=== PATIENT | male | born 1945 | race Caucasian/White ===

== ENCOUNTER → 2018-10-14 13:02 | Outpatient (CLI) | payer MEDICARE, OTHER, SELFPAY | PROVIDERS: Visit Provider Physician Assistant | DX: R30.0 Dysuria (principal) | CPT/HCPCS: 87086 ==

== ENCOUNTER → 2018-10-15 10:13 | Outpatient (CLI) | payer MEDICARE, OTHER, SELFPAY ==
[2018-10-15 10:55] LABS: Add Manual Diff / Slide Review NO; Basophils Absolute Auto 0 /uL (0-100); Basophils Percent Auto 0.3 % (0-2); Eosinophils Absolute Auto 100 /uL (0-450); Eosinophils Percent Auto 0.8 % (2-4); Hematocrit 45.2 % (41-53); Hemoglobin 15.4 g/dL (13.5-17.5); Lymphocytes Absolute Auto 1000 /uL (1100-4500); Lymphocytes Percent Auto 9.6 % (25-40); Mean Corpuscular HGB Conc 34.1 % (30-36); Monocytes Absolute Auto 1000 /uL (0-900); Monocytes Percent Auto 9.6 % (3-14); Neutrophils Absolute Auto 8600 /uL (1500-7000); Neutrophils Percent Auto 79.7 % (50-75); Platelet Count 228 X10^3/uL (150-400); Red Blood Cell Count 4.81 X10^6/uL (4.5-5.9); White Blood Cell Count 10.8 X10^3/uL (4.5-11.0)
[2018-10-15 11:05] LABS: Alanine Aminotransferase 54 IU/L (21-72); Albumin Globulin Ratio 1.3 (1.0-2.8); Alkaline Phosphatase 119 U/L (38-126); Aspartate Aminotransferase 45 IU/L (17-59); BUN Creatinine Ratio 13.5 (6-22); Blood Urea Nitrogen 27 mg/dL (9-20); Calcium 9.2 mg/dL (8.4-10.2); Carbon Dioxide 27 mmol/L (22-32); Chloride 100 mmol/L (98-107); Estimated Glomerular Filt Rate 32.9 mL/min (>60); Globulin 3.1 g/dL (1.7-4.1); Glucose 124 mg/dL (80-110); HEMOLYSIS < 15 (0-50); Potassium 4.3 mmol/L (3.4-5.1); Sodium 141 mmol/L (137-145); Total Protein 7.1 g/dL (6.3-8.2)
== END ==
PROVIDERS: PCP Internal Medicine; Visit Provider Physician Assistant
DX: R31.9 Hematuria, unspecified (principal)
CPT/HCPCS: 36415; 80053; 84153; 85025

== ENCOUNTER → 2018-12-04 12:25 | Outpatient (CLI) | payer MEDICARE, OTHER, SELFPAY ==
--- NOTE | 2018-12-04 | DI.RAD.S_ITS ---
PROCEDURE: XR CHEST 2V INDICATIONS: ACUTE BRONCHITIS TECHNIQUE: 2 views of the chest were acquired. COMPARISON: [facility], , CHEST 2 VIEW, 07/21/2009, 10:11. FINDINGS: Surgical changes and devices: None. Lungs and pleura: Lungs are clear. No pleural effusions or pneumothorax. Mediastinum: Mediastinal contours are normal. Heart size is normal. Bones and chest wall: No suspicious bony abnormalities. Soft tissues appear unremarkable. IMPRESSION: No acute cardiopulmonary disease. Dictated by: Irma Duke M.D. on 12/04/2018 at 17:32 Approved by: Irma Duke M.D. on 12/04/2018 at 17:33
== END ==
PROVIDERS: PCP Internal Medicine; Visit Provider Internal Medicine
DX: J20.9 Acute bronchitis, unspecified (principal)
CPT/HCPCS: 71046

== ENCOUNTER → 2020-02-18 19:24 | Outpatient (ROUT) | payer MEDICARE, OTHER, SELFPAY ==
[2020-02-18 20:19] LABS: Aspartate Aminotransferase 32 IU/L (17-59); Blood Urea Nitrogen 23 mg/dL (9-20); Calcium 9.4 mg/dL (8.4-10.2); Carbon Dioxide 29 mmol/L (22-32); Chloride 103 mmol/L (98-107); Cholesterol 139 mg/dL (140-199); Estimated Glomerular Filt Rate 58.5 mL/min (>60); Glucose 104 mg/dL (80-110); HDL Cholesterol 32 mg/dL (40-60); HEMOLYSIS < 15 (0-50); LDL Cholesterol Calculated 32 mg/dL (<100); Potassium 4.3 mmol/L (3.4-5.1); Sodium 142 mmol/L (137-145); Triglycerides 376 mg/dL (35-150); Uric Acid 8.4 mg/dL (3.5-8.5)
== END ==
PROVIDERS: PCP Internal Medicine; Visit Provider Internal Medicine
DX: I10 Essential (primary) hypertension (principal); E78.2 Mixed hyperlipidemia; M10.9 Gout, unspecified
CPT/HCPCS: 80048; 80061; 84450; 84550

== ENCOUNTER → 2022-04-12 10:33 | Outpatient (CLI) | payer MEDICARE, SELFPAY ==
--- NOTE | 2022-04-12 10:34 | DI.RAD.S_ITS ---
PROCEDURE: XR KUB INDICATIONS: Kidney stones TECHNIQUE: One view of the abdomen acquired. COMPARISON: [facility], XR HAND 3+ VIEWS RIGHT, 06/05/2017, 16:35. [facility] [place], CR, XR LUMBAR SPINE WITH OBLIQUES PLUS FLEXION EXTENSION, 03/22/2022, 15:31. FINDINGS: Surgical changes and devices: L4-L5 pedicle screw fixation with intervertebral body spacer. Right hip screw. Bowel: Paucity of small bowel gas limits evaluation of the small bowel. There is somewhat prominent stool in the right colon. Soft tissues: No suspicious abdominal calcifications. Visualized solid organ contours appear normal in size. Bones: No suspicious bony lesions. IMPRESSION: No kidney stones identified. Dictated by: Tim Strickland M.D. on 04/12/2022 at 15:44 Approved by: Tim Strickland M.D. on 04/12/2022 at 15:45
== END ==
PROVIDERS: PCP Internal Medicine; Referring Provider Urology; Visit Provider Urology
DX: N20.0 Calculus of kidney (principal); R97.20 Elevated prostate specific antigen [PSA]; N40.1 Benign prostatic hyperplasia with lower urinary tract symptoms; R35.1 Nocturia; R39.9 Unspecified symptoms and signs involving the genitourinary system; R39.15 Urgency of urination
CPT/HCPCS: 51798; 74018; 81002; 99214

== ENCOUNTER → 2022-04-20 11:04 | Outpatient (CLI) | payer MEDICARE, SELFPAY ==
--- NOTE | 2022-04-20 11:05 | DI.MRI.S_ITS ---
PROCEDURE: MR PELVIC PROSTATE PROTOCOL INDICATIONS: Elevated and rising PSA TECHNIQUE: Coronal HASTE, axial T1 FSE with fat saturation, 3-plane nonbreath-hold T2 FSE. After the administration of contrast, dynamic axial, delayed axial and coronal VIBE or 2-D FLASH with fat saturation through the pelvis. Optional diffusion weighted imaging and ADC may be performed. COMPARISON: None. FINDINGS: Image quality: The DWI images are suboptimal due to metallic artifact. Prostate: Gland size is 6.5 x 6.5 x 8.5 cm; ellipsoid gland volume is 187 mL. No PI-RADS 3 through 5 lesions. Hypertrophy of the transition zone. Genitourinary system: Diffuse bladder wall thickness, probably due to chronic outlet obstruction. Distal ureters are non distended. Bowel and peritoneum: No pathologic free pelvic fluid. Inferior colon and small bowel loops are normal in caliber. Nodes and vessels: No pelvic or inguinal adenopathy by size criteria. Iliac vessels are normal in caliber. Soft tissues: moderate left inguinal hernia containing fat. Bones: Marrow demonstrates normal overall signal, without lesions to suggest metastases. IMPRESSION: 1. Prostatomegaly with probable chronic outlet obstruction. No suspicious prostate lesions. 2. Moderate left inguinal hernia containing fat. Dictated by: Obie Rai M.D. on 04/20/2022 at 13:42 Approved by: Obie Rai M.D. on 04/20/2022 at 13:52
== END ==
PROVIDERS: PCP Internal Medicine; Referring Provider Urology; Visit Provider Urology
DX: N40.0 Benign prostatic hyperplasia without lower urinary tract symptoms (principal); K40.90 Unilateral inguinal hernia, without obstruction or gangrene, not specified as recurrent; R97.20 Elevated prostate specific antigen [PSA]
CPT/HCPCS: 72197; A9579

== ENCOUNTER → 2022-07-18 10:04 | Outpatient (CLI) | payer OTHER, SELFPAY ==
[2022-07-21 07:16] LABS: PSA Free % 40.5 % (.)
== END ==
PROVIDERS: PCP Internal Medicine; Referring Provider Urology; Visit Provider Urology
DX: R97.20 Elevated prostate specific antigen [PSA] (principal)
CPT/HCPCS: 36415; 84153; 84154

== ENCOUNTER → 2022-10-21 10:23 | Outpatient (CLI) | payer MEDICARE, SELFPAY ==
[2022-10-23 08:28] LABS: PSA Free % 38.6 % (.); PSA, Total 7.3 ng/mL (0.0-4.0)
== END ==
PROVIDERS: PCP Internal Medicine; Referring Provider Urology; Visit Provider Urology
DX: R97.20 Elevated prostate specific antigen [PSA] (principal)
CPT/HCPCS: 36415; 84153; 84154

== ENCOUNTER → 2023-01-30 09:35 | Outpatient (CLI) | payer MEDICARE, SELFPAY ==
[2023-02-01 10:43] LABS: PSA Free % 44.5 % (.); PSA, Total 6.4 ng/mL (0.0-4.0)
== END ==
PROVIDERS: PCP Internal Medicine; Referring Provider Urology; Visit Provider Urology
DX: R97.20 Elevated prostate specific antigen [PSA] (principal)
CPT/HCPCS: 36415; 84153; 84154

== ENCOUNTER 2023-02-21 13:34 | Emergency (ER) | payer MEDICARE, SELFPAY ==
[2023-02-21 13:37] VITALS: BP 180/80; PULSE 83; RESP 18; TEMP 36.6; O2SAT 97; BMI 27.4
--- NOTE | 2023-02-21 14:25 | ED_ITS ---
HPI - Extremity Problem <Jaydon Barrow PA-C - Last Filed: 02/21/23 15:58> General Chief complaint: Extremity Problem,Nontraumatic Stated complaint: bad L big toe Time Seen by Provider: 02/21/23 14:25 Source: patient Mode of arrival: Ambulatory History of Present Illness HPI Narrative: This is a 78-year-old male presents to the emergency department due to a left great toe ingrown toenail that has been affecting him for the last 2 months. He states that he and properly cut it about 2 months ago and cause it to grow in on itself. Denies any fevers, nausea, vomiting. Denies any redness spreading up the foot. States there has been some bloody drainage. Related Data Home Medications Medication Instructions Recorded Confirmed [MONTRELL] Q DAY ##1 12/17/06 02/10/23 rosuvastatin 20 mg tablet 20 mg PO DAILY 04/12/22 02/10/23 vitamins A,C,J-wkfd-tnfjes 4,296 1 cap PO BID 04/12/22 02/10/23 mcg-226 mg-90 mg capsule (PreserVision AREDS) naproxen sodium 220 mg capsule 220 - 440 mg PO BID PRN 04/28/22 02/10/23 allopurinol 100 mg tablet 100 mg PO BID 08/03/22 02/10/23 lisinopril 20 1 tab PO DAILY 08/03/22 02/10/23 mg-hydrochlorothiazide 12.5 mg tablet Previous Rx's Medication Instructions Recorded tadalafil 5 mg tablet (Cialis) 5 mg PO DAILY #30 tabs 08/03/22 cephalexin 500 mg capsule 500 mg PO QID #20 caps 02/21/23 Allergies Allergy/AdvReac Type Severity Reaction Status Date / Time oxycodone [From PERCOCET] Allergy Severe RASH Verified 11/04/22 10:41 Review of Systems <Jaydon Barrow PA-C - Last Filed: 02/21/23 15:58> Review of Systems Narrative: GENERAL: Denies chills, fatigue, malaise, fever, sweats. HEENT: Denies sinus pain, ear pain, sore throat, difficulty swallowing, dizziness. RESPIRATORY: Denies dyspnea, cough, wheezing, hemoptysis, sputum. CARDIOVASCULAR: Denies chest pain, palpitations, orthopnea, edema, GASTROINTESTINAL: Denies nausea, vomiting, abdominal pain, diarrhea, constipation, melena. : Denies dysuria, frequency, incontinence, hematuria, urinary retention. MUSCULOSKELETAL: denies weakness, joint pain, or bony pain SKIN: Left great toe ingrown toenail NEUROLOGIC: Denies weakness, headache, numbness, change in speech, confusion, seizures, incoordination. PSYCHIATRIC: No concerning psychosocial issues. 12 point review of systems is negative except for those stated above Patient History <Jaydon Barrow PA-C - Last Filed: 02/21/23 15:58> Medical History (Updated 02/21/23 @ 15:58 by Jaydon Barrow PA-C) Feeling of incomplete bladder emptying History of kidney stones Lower urinary tract symptoms Benign prostatic hyperplasia Rising PSA level Elevated PSA Male circumcision High blood pressure Gout Surgical History H/O vasectomy History of back surgery Social History marital status: number of children: 2 Smoking Status: Never smoker Type(s) of exercise: walking and weight lifting frequency: 3-4 times per week Smoking Status: Never smoker Substance Use Type: does not use Exam <Jaydon Barrow PA-C - Last Filed: 02/21/23 15:58> Narrative Exam Narrative: GENERAL: Well-developed patient, in mild distress. HEAD: Atraumatic. Normocephalic. EYES: Pupils equal round and reactive. Extraocular motions intact. No scleral icterus. No injection or drainage. ENT: Nose without bleeding, purulent drainage. Throat without erythema, tonsillar hypertrophy or exudate. Airway patent. NECK: Trachea midline. Non tender CARDIOVASCULAR: Regular rate and rhythm without murmurs, gallops, or rubs. RESPIRATORY: Clear to auscultation. Breath sounds equal bilaterally. No wheezes, rales, or rhonchi. GASTROINTESTINAL: Abdomen soft, non-tender, nondistended. EXTREMITIES: Ingrown toenail on the medial side of the left great toe. Some bloody drainage. No significant erythema or warmth to the touch. No evidence of any purulent drainage. BACK: Nontender without deformity or crepitance. No flank tenderness. NEURO: AOx3. SKIN: No rash or erythema of visible areas Initial Vital Signs Initial Vital Signs: Vital Signs Temperature 97.9 F 02/21/23 13:37 Pulse Rate 83 02/21/23 13:37 Respiratory Rate 18 02/21/23 13:37 Blood Pressure 180/80 H 02/21/23 13:37 Pulse Oximetry 97 02/21/23 13:37 Oxygen Delivery Method Room Air 02/21/23 13:37 <Leti Oliver DO - Last Filed: 02/22/23 07:51> Initial Vital Signs Initial Vital Signs: Vital Signs Temperature 97.9 F 02/21/23 13:37 Pulse Rate 83 02/21/23 13:37 Respiratory Rate 18 02/21/23 13:37 Blood Pressure 180/80 H 02/21/23 13:37 Pulse Oximetry 97 02/21/23 13:37 Oxygen Delivery Method Room Air 02/21/23 13:37 Course <Jaydon Barrow PA-C - Last Filed: 02/21/23 15:58> Orders Ordered: Discontinued Medications Diphtheria/Tetanus/Acell Pertussis (Tet,Diph,Pertuss(Acell),Vac/Pf 0.5 Ml Syringe) 0.5 ml IM .ONCE ONE Stop: 02/21/23 15:20 Last Admin: 02/21/23 15:56 Dose: 0.5 ml Documented By: DANIELLE Lidocaine HCl (Lidocaine 1% 20 Ml) 20 ml INJ INTRA-OP ONE Stop: 02/21/23 14:32 Vital Signs Vital signs: Vital Signs - 8 hr 02/21/23 13:37 Temperature 97.9 F Pulse Rate 83 Respiratory Rate 18 Blood Pressure 180/80 H Pulse Oximetry 97 Oxygen Delivery Method Room Air <Leti Oliver DO - Last Filed: 02/22/23 07:51> Orders Ordered: Discontinued Medications Diphtheria/Tetanus/Acell Pertussis (Tet,Diph,Pertuss(Acell),Vac/Pf 0.5 Ml Syringe) 0.5 ml IM .ONCE ONE Stop: 02/21/23 15:20 Last Admin: 02/21/23 15:56 Dose: 0.5 ml Documented By: DANIELLE Lidocaine HCl (Lidocaine 1% 20 Ml) 20 ml INJ INTRA-OP ONE Stop: 02/21/23 14:32 Vital Signs Vital signs: Vital Signs - 8 hr 02/21/23 13:37 Temperature 97.9 F Pulse Rate 83 Respiratory Rate 18 Blood Pressure 180/80 H Pulse Oximetry 97 Oxygen Delivery Method Room Air MDM - Extremity (Nontraumatic) <Jaydon Barrow PA-C - Last Filed: 02/21/23 15:58> MDM Narrative Medical decision making narrative: MDM * differential diagnosis includes but not limited to ingrowing toenail, abscess, osteomyelitis * Prior records reviewed: Patient has not been to this emergency department the past. * My lab interpretation: None obtained * My imgaing interpretation: None obtained * Clinical Decision Rules/Scores evaluated: None * Independent discussions with: None ED Course: This is a 78-year-old male presents emergency department due to left great toe ingrown toenail. Medial aspect of the left great toenail was removed without complications. Digital block performed with 1% lidocaine without epi. No complications. Will discharge with prophylactic antibiotics. Recommended patient is speak with the primary care provider for a podiatry referral for routine monitoring. Tetanus was updated. Shared Decision Making: Discussed plan with the patient was comfortable with the plan. Social Considerations: None Disposition: Discharged to home Discharge Plan Departure Patient Disposition: Home Clinical Impression: Ingrown toenail Activity Restrictions/Additional Instructions: Thank you for coming to the [facility] Emergency Department today. I am glad that we are able to remove the part of the toenail in question. Please take the oral antibiotics as prescribed to avoid any kind of infection. I do recommend you speak with the primary care provider for a referral to Podiatry so they can keep an eye on the healing and make sure that the ingrown toenail it does not happen again. I hope you feel better soon. Please follow up with your primary care provider within a week if your symptoms continue. If you do not have a primary care provider please contact the [facility] Resource line at [phone]. They will ask some questions about your medical history and help you get set up with a provider in the community. Prescriptions: New cephalexin 500 mg capsule 500 mg PO QID Qty: 20 0RF No Action [FISHOIL] Q DAY Qty: 1 rosuvastatin 20 mg tablet 20 mg PO DAILY PreserVision AREDS 4,296 mcg-226 mg-90 mg capsule 1 cap PO BID allopurinol 100 mg tablet 100 mg PO BID naproxen sodium 220 mg capsule 220 - 440 mg PO BID PRN lisinopril-hydrochlorothiazide 20-12.5 mg tablet 1 tab PO DAILY tadalafil [Cialis] 5 mg tablet 5 mg PO DAILY Qty: 30 12RF Referrals: Laura Corley MD [Primary Care Provider] - Stand Alone Forms: Patient Portal/API ED Sign-out <Leti Oliver DO - Last Filed: 02/22/23 07:51> Cosign ED Attending Sonnyature Attestation: I was available for consultation.
[2023-02-21] MEDS: TET,DIPH,PERTUSS(ACELL),VAC/PF 0.5 ML SYRINGE IM (15:56)
[2023-02-21 15:58] VITALS: BP 151/70; PULSE 57; RESP 12; TEMP 36.8; O2SAT 96
== END 2023-02-21 16:16 | disposition home or self-care (01) ==
PROVIDERS: Emergency Provider Physician Assistant Medical; PCP Internal Medicine
DX: L60.0 Ingrowing nail (principal); Z79.899 Other long term (current) drug therapy; Z23 Encounter for immunization
CPT/HCPCS: 90471; 99283; 90715

== ENCOUNTER → 2023-06-02 09:33 | Outpatient (CLI) | payer MEDICARE, SELFPAY ==
[2023-06-06 15:51] LABS: PSA Free % 38.9 % (.); PSA, Total 9.4 ng/mL (0.0-4.0)
== END ==
PROVIDERS: PCP Internal Medicine; Referring Provider Urology; Visit Provider Urology
DX: R97.20 Elevated prostate specific antigen [PSA] (principal)
CPT/HCPCS: 36415; 84153; 84154

== ENCOUNTER → 2023-07-26 10:00 | Outpatient (CLI) | payer MEDICARE, SELFPAY ==
[2023-07-26 10:23] LABS: Hematocrit 46.6 % (41-53); Hemoglobin 15.8 g/dL (13.5-17.5); Mean Corpuscular HGB Conc 33.9 % (30-36); Mean Corpuscular Hemoglobin 33.3 PG (26-34); Mean Corpuscular Volume 98.2 fL (80-100); Platelet Count 190 X10^3/uL (150-400); Red Blood Cell Count 4.75 X10^6/uL (4.5-5.9); Red Cell Distribution Width 15.1 % (11.6-14.8); White Blood Cell Count 6.4 X10^3/uL (4.5-11.0)
[2023-07-26 11:05] LABS: Alanine Aminotransferase 25 IU/L (<50); Albumin 4.6 g/dL (3.5-5.0); Albumin Globulin Ratio 1.8 (1.0-2.8); Alkaline Phosphatase 86 U/L (38-126); Aspartate Aminotransferase 29 IU/L (17-59); BUN Creatinine Ratio 21.4 (6-22); Bilirubin Total 0.8 mg/dL (0.2-1.3); Blood Urea Nitrogen 30 mg/dL (9-20); Calcium 9.3 mg/dL (8.4-10.2); Carbon Dioxide 29 mmol/L (22-32); Chloride 107 mmol/L (98-107); Cholesterol 101 mg/dL (140-199); Estimated Glomerular Filt Rate 51 mL/min (>60); Globulin 2.6 g/dL (1.7-4.1); Glucose 99 mg/dL (80-110); HDL Cholesterol 40 mg/dL (40-60); HEMOLYSIS < 15 (0-50); LDL Cholesterol Calculated 42 mg/dL (<100); Potassium 4.3 mmol/L (3.4-5.1); Sodium 142 mmol/L (137-145); Total Protein 7.2 g/dL (6.3-8.2); Triglycerides 94 mg/dL (35-150); Uric Acid 5.2 mg/dL (3.5-8.5)
[2023-07-26 11:29] LABS: TSH w/ Reflex to FT4 3.71 uIU/mL (0.47-4.68)
== END ==
PROVIDERS: PCP Internal Medicine; Referring Provider Internal Medicine; Visit Provider Internal Medicine
DX: E78.2 Mixed hyperlipidemia (principal); I10 Essential (primary) hypertension; M10.9 Gout, unspecified
CPT/HCPCS: 36415; 80053; 80061; 84443; 84550; 85027

== ENCOUNTER 2023-08-10 04:34 | Emergency (ER) | payer MEDICARE, SELFPAY ==
[2023-08-10 04:40] VITALS: PULSE 122; O2SAT 96
[2023-08-10 04:41] VITALS: BP 159/76; PULSE 119; O2SAT 95
[2023-08-10 04:47] VITALS: BP 159/76; PULSE 109; RESP 16; TEMP 36.7; O2SAT 95
--- NOTE | 2023-08-10 04:57 | ED.GENADULT ---
HPI - General Adult General Chief complaint: Urogenital-Male Stated complaint: can't pee Time Seen by Provider: 08/10/23 04:36 Source: patient and family Mode of arrival: Ambulatory History of Present Illness HPI narrative: Patient is a 78-year-old male who is here for evaluation of approximately 24 hours of urinary frequency and urgency and also burning. He also states he feels like he has not emptying his bladder. Also feels like he is constipated. Patient reports subjective fevers last night. Is not having any lower abdominal pain. Related Data Home Medications Medication Instructions Recorded Confirmed vitamins A,C,L-bhib-aofbkf 4,296 1 cap PO BID 04/12/22 07/25/23 mcg-226 mg-90 mg capsule (PreserVision AREDS) naproxen sodium 220 mg capsule 220 - 440 mg PO BID PRN 04/28/22 07/25/23 cholecalciferol (vitamin D3) 125 125 mcg PO DAILY 07/25/23 07/25/23 mcg (5,000 unit) capsule omega 0-ymw-abe-fish oil 1,000 mg 1 cap PO DAILY 07/25/23 07/25/23 (120 mg-180 mg) capsule (Fish Oil) sea-iodine 1 cap PO DAILY 07/25/23 Previous Rx's Medication Instructions Recorded allopurinol 100 mg tablet 200 mg (2 x 100 mg) PO DAILY #180 07/25/23 tabs lisinopril 20 1 tab PO DAILY #90 tabs 07/25/23 mg-hydrochlorothiazide 25 mg tablet rosuvastatin 20 mg tablet 20 mg PO DAILY #90 tabs 07/25/23 phenazopyridine 100 mg tablet 100 mg PO TID PRN pain 6 doses #6 08/10/23 (Pyridium) tabs sulfamethoxazole 800 1 tab PO BID 3 days #6 tabs 08/10/23 mg-trimethoprim 160 mg tablet (Bactrim DS) Allergies Allergy/AdvReac Type Severity Reaction Status Date / Time oxycodone [From PERCOCET] Allergy Severe RASH Verified 07/25/23 08:14 Review of Systems Constitutional Constitutional: Reports system reviewed and no additional complaints, except as documented Gastrointestinal Gastrointestinal: Reports system reviewed and no additional complaints, except as documented Genitourinary Genitourinary: Reports system reviewed and no additional complaints, except as documented Integumentary/Breasts Skin/Breast: Reports system reviewed and no additional complaints, except as documented Patient History Medical History Osteoarthritis (~1999) Allergies (~1948) Shoulder pain (~2017) Lumbar disc disease (~2015) Fractures (~1999) Foot pain (~2017) Chronic back pain (~2013) Carpal tunnel syndrome (~2017) Ankle pain (~2017) Mumps (~1953) Measles (~1953) Chicken pox (~1948) Tinnitus Hearing loss (~1969) Cataracts, bilateral (~2017) Slow transit constipation Advanced directives, counseling/discussion Mixed hyperlipidemia Essential hypertension Feeling of incomplete bladder emptying History of kidney stones Lower urinary tract symptoms Benign prostatic hyperplasia Rising PSA level Elevated PSA (~2022) Male circumcision Gout (~2014) Surgical History (Updated 08/07/23 @ 21:08 by Kacey Sousa) Anesthesia History of cataract removal with insertion of prosthetic lens (~2019) History of carpal tunnel release (~2021) History of shoulder surgery (~2020) H/O vasectomy History of back surgery (~2015) Family History (Updated 08/07/23 @ 21:09 by Kacey Sousa) Mother COPD (chronic obstructive pulmonary disease) Brother Cancer Social History marital status: number of children: 2 Smoking Status: Former smoker Type(s) of exercise: walking and weight lifting frequency: 3-4 times per week Smoking Status: Former smoker Substance Use Type: does not use Exam Initial Vital Signs Initial Vital Signs: Vital Signs Temperature 98.1 F 08/10/23 04:47 Pulse Rate 109 H 08/10/23 04:47 Respiratory Rate 16 08/10/23 04:47 Blood Pressure 159/76 H 08/10/23 04:47 Pulse Oximetry 95 08/10/23 04:47 Oxygen Delivery Method Room Air 08/10/23 04:47 Const General: cooperative, comfortable and No ill appearing HENMT Head: normal to inspection and normocephalic Resp Effort & Inspection: normal respiratory effort Cardio Rate: regular rate GI Inspection: normal to inspection and non-distended Palpation: soft, No firm and No tender Skin General: no rashes or lesions noted Neuro General: patient alert, patient awake, patient oriented x3 and moves all extremities Course Orders Ordered: ED Orders 08/10/23 05:10 Urine Culture Stat 08/10/23 05:15 Urinalysis and Microscopic Stat Discontinued Medications Lidocaine HCl (Lidocaine 2% (Glydo) 6 Ml Gel) 6 ml TOP NOW ONE Stop: 08/10/23 04:57 Last Admin: 08/10/23 05:18 Dose: 6 ml Documented By: DELIA Phenazopyridine HCl (Phenazopyridine 100 Mg Tablet) 100 mg PO NOW ONE Stop: 08/10/23 06:03 Trimethoprim/Sulfamethoxazole (Trimeth/Sulfa 160/800 (Ds) Tablet) 1 tab PO NOW ONE Stop: 08/10/23 06:03 Vital Signs Vital signs: Vital Signs - 8 hr 08/10/23 04:47 Temperature 98.1 F Pulse Rate 109 H Respiratory Rate 16 Blood Pressure 159/76 H Pulse Oximetry 95 Oxygen Delivery Method Room Air Medical Decision Making Lab Data Lab results reviewed: Yes I reviewed the patient's lab results. Labs: Lab Results 08/10/23 Range/Units 05:10 Urine Color Yellow Urine Appearance Clear Urine pH 5.5 (4.5-8.0) Ur Specific [place] <=1.005 (1.000-1.035) Urine Protein Trace H (Negative) Urine Glucose (UA) Negative (Negative) g/dL Urine Ketones Negative (NEGATIVE) Urine Occult Blood 2+ H (Negative) Urine Nitrate Positive H (Negative) Urine Bilirubin Negative (NEGATIVE) Urine Urobilinogen 1.0 (0.2) E.U./dL Ur Leukocyte Esterase 1+ H (NEGATIVE) Urine RBC 1-5/hpf (0-5/HPF) Urine WBC 10-30/hpf H (0-5/HPF) Ur Squamous Epith Cells 0-1 /hpf (0-5/HPF) Urine Bacteria Many (>30) H (None) Vol Urine Centrifuged 10ml (spun) MDM Narrative Medical decision making narrative: Patient's urinalysis today is consistent with a urinary tract infection secondary to positive nitrates, white blood cells, bacteria. The amount of urine that resulted after the Jiang catheter was placed is not consistent with acute urinary retention. I suspect that the symptoms that he is having with urinary urgency and frequency her related to the infection and bladder spasms. This is probably also related to his constipation issues as well. The Jiang catheter was placed here was removed. His 1st dose of antibiotics was given here in the emergency department. A prescription was sent to the pharmacy of his choice. Patient was given return precautions and follow-up instructions. He understands that there was a urine culture pending at the time of his discharge and we will contact if we need to change antibiotics based on this. Discharge Plan Departure Patient Disposition: Home Clinical Impression: Urinary tract infection Instructions: DI for Urinary Tract Infection (UTI) Activity Restrictions/Additional Instructions: Take the antibiotics as directed. Your 1st dose was given here in the emergency department so your next dose would not be until this afternoon. The Pyridium is a medication that can be helpful with the bladder spasms. This is an as-needed medication and I suspect that your symptoms will improve once the treatment for the infection starts. There was a urine culture pending at the time of discharge. We will contact you if we need to change antibiotics based on this. Contact your primary doctor for follow-up. Return to the emergency department for new symptoms. Prescriptions: New sulfamethoxazole-trimethoprim [Bactrim DS] 800-160 mg tablet 1 tab PO BID 3 Days Qty: 6 0RF phenazopyridine [Pyridium] 100 mg tablet 100 mg PO TID PRN (Reason: pain) Qty: 6 0RF No Action omega 8-cum-mnx-fish oil [Fish Oil] 1,000 mg (120 mg-180 mg) capsule 1 cap PO DAILY cholecalciferol (vitamin D3) 125 mcg (5,000 unit) capsule 125 mcg PO DAILY sea-iodine 1 cap PO DAILY lisinopril-hydrochlorothiazide 20-25 mg tablet 1 tab PO DAILY Qty: 90 3RF rosuvastatin 20 mg tablet 20 mg PO DAILY Qty: 90 3RF allopurinol 100 mg tablet 200 mg PO DAILY Qty: 180 3RF PreserVision AREDS 4,296 mcg-226 mg-90 mg capsule 1 cap PO BID naproxen sodium 220 mg capsule 220 - 440 mg PO BID PRN Referrals: Boy Sosa MD [Primary Care Provider] - Stand Alone Forms: Patient Portal/API
[2023-08-10 05:00] VITALS: BP 143/68; PULSE 104; O2SAT 94
[2023-08-10] MEDS: LIDOCAINE 2% (GLYDO) 6 ML GEL TOP (05:18)
[2023-08-10 05:20] LABS: Appearance Urine UA CLEAR; Bilirubin Urine UA NEGATIVE (NEGATIVE); Color Urine UA YELLOW; Glucose Urine UA NEGATIVE (Negative); Ketones Urine UA NEGATIVE (NEGATIVE); Leukocyte Esterase Urine UA 1+ (NEGATIVE); Nitrite Urine UA POSITIVE (Negative); Occult Blood Urine UA 2+ (Negative); Protein Urine UA TRACE (Negative); Specific Gravity Urine UA <=1.005 (1.000-1.035); pH Urine UA 5.5 (4.5-8.0)
[2023-08-10 05:30] VITALS: BP 144/73; PULSE 98; O2SAT 94
[2023-08-10 05:38] LABS: Urine Volume 10mL (spun)
[2023-08-10 05:39] LABS: Bacteria Urine Many (>30); RBC Urine 1-5/HPF (0-5/HPF); Squamous Epithelial Cell Urine 0-1 /HPF (0-5/HPF); WBC Urine 10-30/HPF (0-5/HPF)
[2023-08-10 06:00] VITALS: BP 167/79; PULSE 95; RESP 18; O2SAT 95
[2023-08-10] MEDS: TRIMETH/SULFA 160/800 (DS) TABLET 1 TAB PO (06:08)
[2023-08-10] MEDS: PHENAZOPYRIDINE 100 MG TABLET PO (06:11)
== END 2023-08-10 06:21 | disposition home or self-care (01) ==
PROVIDERS: Emergency Provider Emergency Medicine; PCP Internal Medicine
DX: N39.0 Urinary tract infection, site not specified (principal)
CPT/HCPCS: 51798; 81001; 87077; 87086; 87186; 99283; 99284

== ENCOUNTER 2023-08-14 04:08 | Inpatient (IN) | payer MEDICARE, SELFPAY ==
[2023-08-14 04:18] VITALS: BP 166/74; PULSE 102; RESP 18; TEMP 37; O2SAT 95; BMI 62.1
[2023-08-14] MEDS: cefTRIAXone 1,000 MG in SODIUM CHLORIDE 0.9% 100 ML 200 MG IV (04:32)
--- NOTE | 2023-08-14 04:39 | ED_ITS ---
HPI - Male Genitourinary <Leti DO Melody - Last Filed: 08/16/23 07:34> General Chief complaint: Urogenital-Male Stated complaint: uti Time Seen by Provider: 08/14/23 04:11 Source: patient and family Mode of arrival: Ambulatory History of Present Illness HPI Narrative: Patient is a 70-year-old male history of hypertension, gou, hyperlipidemia presenting today with increased bladder spasm and urinary frequency. He was seen evaluated here on August 09 and diagnosed with a UTI. He was appropriately placed on Bactrim and Pyridium. He reports that he continues to bladder spasm he is finished all in of his antibiotics. Also complaining of some mild constipation. He had a Jiang catheter placed here while he was in the ED and then it was found he had UTI. It was thought that his bladder spasm for secondary to infection. He currently has a bladder scan of 590 mL. Continues to have severe bladder spasms pain. He also reports some chills and sweats. No significant flank pain nausea or vomiting. Related Data Home Medications Medication Instructions Recorded Confirmed vitamins A,C,Z-ufnr-vdrhbs 4,296 1 cap PO BID 04/12/22 08/14/23 mcg-226 mg-90 mg capsule (PreserVision AREDS) cholecalciferol (vitamin D3) 125 125 mcg PO DAILY 07/25/23 08/14/23 mcg (5,000 unit) capsule omega 4-mjx-niz-fish oil 1,000 mg 1 cap PO DAILY 07/25/23 08/14/23 (120 mg-180 mg) capsule (Fish Oil) sea-iodine 1 cap PO DAILY 07/25/23 08/14/23 Previous Rx's Medication Instructions Recorded allopurinol 100 mg tablet 200 mg (2 x 100 mg) PO DAILY #180 07/25/23 tabs rosuvastatin 20 mg tablet 20 mg PO DAILY #90 tabs 07/25/23 amoxicillin 875 mg-potassium 1 tab PO BID 3 days #6 tabs 08/17/23 clavulanate 125 mg tablet tamsulosin 0.4 mg capsule 0.4 mg PO BEDTIME 90 days #90 caps 08/17/23 Allergies Allergy/AdvReac Type Severity Reaction Status Date / Time oxycodone [From PERCOCET] Allergy Severe RASH Verified 07/25/23 08:14 sulfamethoxazole AdvReac Intermediate Verified 08/14/23 08:46 [From Bactrim] trimethoprim [From Bactrim] AdvReac Intermediate Verified 08/14/23 08:46 Review of Systems <Francois Mcnulty MD - Last Filed: 08/18/23 11:32> Review of Systems Narrative: GENERAL: negative chills, fatigue, malaise, fever, sweats. HEENT: negative sinus pain, ear pain, sore throat RESPIRATORY: negative dyspnea, cough CARDIOVASCULAR: negative chest pain, palpitations GASTROINTESTINAL: negative nausea, vomiting, positive abdominal pain : Positive dysuria, frequency, hematuria MUSCULOSKELETAL: negative muscle or bony pain SKIN: negative rash, skin lesions NEUROLOGIC: negative weakness, numbness ROS Unobtainable: All systems reviewed & are unremarkable except as noted in HPI and below Patient History <Leti Oliver DO - Last Filed: 08/16/23 07:34> Medical History Osteoarthritis (~1999) Allergies (~1948) Shoulder pain (~2017) Lumbar disc disease (~2015) Fractures (~1999) Foot pain (~2017) Chronic back pain (~2013) Carpal tunnel syndrome (~2017) Ankle pain (~2017) Mumps (~1953) Measles (~1953) Chicken pox (~1948) Tinnitus Hearing loss (~1969) Cataracts, bilateral (~2017) Slow transit constipation Advanced directives, counseling/discussion Mixed hyperlipidemia Essential hypertension Feeling of incomplete bladder emptying History of kidney stones Lower urinary tract symptoms Benign prostatic hyperplasia Rising PSA level Elevated PSA (~2022) Male circumcision Gout (~2014) Surgical History (Updated 08/07/23 @ 21:08 by Kacey Sousa) Anesthesia History of cataract removal with insertion of prosthetic lens (~2019) History of carpal tunnel release (~2021) History of shoulder surgery (~2020) H/O vasectomy History of back surgery (~2015) Family History (Updated 08/07/23 @ 21:09 by Kacey Sousa) Mother COPD (chronic obstructive pulmonary disease) Brother Cancer Social History marital status: number of children: 2 household members: spouse Smoking Status: Former smoker alcohol intake: former Type(s) of exercise: walking and weight lifting frequency: 3-4 times per week Smoking Status: Former smoker Substance Use Type: does not use Exam <DO Heather Walters Last Filed: 08/16/23 07:34> Initial Vital Signs Initial Vital Signs: Vital Signs Temperature 98.6 F 08/14/23 04:18 Pulse Rate 102 H 08/14/23 04:18 Respiratory Rate 18 08/14/23 04:18 Blood Pressure 166/74 H 08/14/23 04:18 Pulse Oximetry 95 08/14/23 04:18 Oxygen Delivery Method Room Air 08/14/23 04:18 GENERAL: Alert 70-year-old male appears slightly uncomfortable and in no acute distress. HEENT: Head atraumatic,EOMI, pupils reactive, face symmetric, moist mucous membranes CARDIOVASCULAR: Regular rate and rhythm without murmurs, rubs or gallops. RESPIRATORY: Breath sounds equal bilaterally, no wheezes rales or rhonchi. ABDOMEN: Soft, nontender. Normoactive bowel sounds all 4 quadrants. No guarding or rebound. : No CVA tenderness EXTREMITIES: Normal range of motion, no clubbing or edema. Neurovascularly intact NEUROLOGICAL: Alert and oriented x4 SKIN: Warm, dry, no laceration, no petechiae, no rashes or lesions. <Francois Mcnulty MD - Last Filed: 08/18/23 11:32> Initial Vital Signs Initial Vital Signs: Vital Signs Temperature 98.6 F 08/14/23 04:18 Pulse Rate 102 H 08/14/23 04:18 Respiratory Rate 18 08/14/23 04:18 Blood Pressure 166/74 H 08/14/23 04:18 Pulse Oximetry 95 08/14/23 04:18 Oxygen Delivery Method Room Air 08/14/23 04:18 Course <Leti Oliver DO - Last Filed: 08/16/23 07:34> Orders Ordered: Discontinued Medications Acetaminophen (Acetaminophen 325 Mg Tablet) 650 mg PO Q6H PRN PRN Reason: Fever/Mild Pain (1-3) Last Admin: 08/14/23 21:06 Dose: 650 mg Documented By: OJCE Amlodipine Besylate (Amlodipine 5 Mg Tablet) 5 mg PO DAILY [facility] Last Admin: 08/14/23 10:14 Dose: Not Given Documented By: FREDA Atorvastatin Calcium (Atorvastatin 20 Mg Tablet) 40 mg PO BEDTIME [facility] Last Admin: 08/16/23 21:23 Dose: 40 mg Documented By: Admin: 08/15/23 21:13 Dose: 40 mg Documented By: Admin: 08/14/23 20:09 Dose: 40 mg Documented By: JOCE Heparin Sodium (Porcine) (Heparin 5,000 Unit/Ml Vial) 5,000 unit SUBCUT BID [facility] Last Admin: 08/17/23 08:21 Dose: 5,000 unit Documented By: Admin: 08/16/23 21:23 Dose: 5,000 unit Documented By: Admin: 08/16/23 08:43 Dose: 5,000 unit Documented By: Admin: 08/15/23 21:13 Dose: 5,000 unit Documented By: Admin: 08/14/23 10:12 Dose: 5,000 unit Documented By: FREDA Ceftriaxone Sodium 1,000 mg/ (Sodium Chloride) 100 mls @ 200 mls/hr IV NOW ONE Stop: 08/14/23 04:21 Last Infusion: 08/14/23 05:37 Dose: Infused Documented By: Admin: 08/14/23 04:32 Dose: 200 mls/hr Documented By: DALLIN Sodium Chloride (Normal Saline 0.9%) 1,000 mls @ 1,000 mls/hr IV BOLUS ONE Stop: 08/14/23 06:07 Last Infusion: 08/14/23 07:24 Dose: Infused Documented By: Admin: 08/14/23 05:37 Dose: 1,000 mls/hr Documented By: DALLIN Sodium Chloride (Normal Saline 0.9%) 1,000 mls @ 100 mls/hr IV CONT [facility] Stop: 08/14/23 21:14 Last Infusion: 08/14/23 21:30 Dose: Infused Documented By: Admin: 08/14/23 20:09 Dose: 100 mls/hr Documented By: Infusion: 08/14/23 20:09 Dose: Infused Documented By: Admin: 08/14/23 10:09 Dose: 100 mls/hr Documented By: FREDA Ceftriaxone Sodium 1,000 mg/ (Sodium Chloride) 100 mls @ 200 mls/hr IV Q24H [facility] Stop: 08/18/23 07:01 Last Admin: 08/17/23 06:24 Dose: 200 mls/hr Documented By: Infusion: 08/17/23 03:06 Dose: Infused Documented By: Admin: 08/16/23 06:29 Dose: 200 mls/hr Documented By: Infusion: 08/15/23 07:40 Dose: Infused Documented By: Admin: 08/15/23 06:33 Dose: 200 mls/hr Documented By: JOCE Sodium Chloride (Normal Saline 0.9%) 250 mls @ 21 mls/hr IV Q24H PRN PRN Reason: Flush Sodium Chloride (Normal Saline 0.9%) 1,000 mls @ 125 mls/hr IV CONT [facility] Stop: 08/15/23 22:59 Last Admin: 08/15/23 17:39 Dose: 125 mls/hr Documented By: Infusion: 08/15/23 17:39 Dose: Infused Documented By: Admin: 08/15/23 11:08 Dose: 125 mls/hr Documented By: LUNA Sodium Chloride (Normal Saline 0.9%) 1,000 mls @ 100 mls/hr IV CONT [facility]LE[facility] Stop: 08/16/23 22:44 Last Admin: 08/16/23 11:17 Dose: 100 mls/hr Documented By: ALEXEI Lidocaine HCl (Lidocaine 2% (Glydo) 6 Ml Gel) 6 ml TOP NOW ONE Stop: 08/14/23 04:44 Last Admin: 08/14/23 05:40 Dose: 6 ml Documented By: DALLIN Naloxone HCl (Naloxone 0.4 Mg/Ml Vial) 0.2 mg IV Q2MIN PRN PRN Reason: Opiate Reversal Ondansetron HCl (Ondansetron 4 Mg/2 Ml Inj) 4 mg IV Q4HR PRN PRN Reason: Nausea And Vomiting Oxybutynin (Oxybutynin 5 Mg Tablet) 5 mg PO BID [facility] Oxybutynin (Oxybutynin 5 Mg Tablet) 5 mg PO BID [facility] Last Admin: 08/17/23 08:21 Dose: 5 mg Documented By: Admin: 08/16/23 21:23 Dose: 5 mg Documented By: Admin: 08/16/23 08:43 Dose: 5 mg Documented By: Admin: 08/15/23 21:13 Dose: 5 mg Documented By: Admin: 08/15/23 10:04 Dose: 5 mg Documented By: Admin: 06/17/24 22:25 Dose: 5 mg Documented By: JOCE Sodium Chloride (Sodium Chloride 0.9% Flush) 10 ml IV PRN PRN PRN Reason: Flush Last Admin: 08/15/23 06:33 Dose: 10 ml Documented By: JOCE Sodium Chloride (Sodium Chloride 0.9% Flush) 10 ml IV BID [facility] Last Admin: 08/17/23 08:21 Dose: 10 ml Documented By: Admin: 08/16/23 21:23 Dose: 10 ml Documented By: Admin: 08/16/23 08:44 Dose: 10 ml Documented By: Admin: 08/15/23 21:13 Dose: 10 ml Documented By: Admin: 08/15/23 09:05 Dose: 10 ml Documented By: LUNA Tamsulosin HCl (Tamsulosin 0.4 Mg Capsule) 0.4 mg PO DAILY [facility] Last Admin: 08/17/23 08:21 Dose: 0.4 mg Documented By: Admin: 08/16/23 08:43 Dose: 0.4 mg Documented By: Admin: 08/15/23 10:05 Dose: 0.4 mg Documented By: Admin: 08/14/23 10:12 Dose: 0.4 mg Documented By: FREDA Vital Signs Vital signs: Vital Signs - 8 hr 08/14/23 04:18 Temperature 98.6 F Pulse Rate 102 H Respiratory Rate 18 Blood Pressure 166/74 H Pulse Oximetry 95 Oxygen Delivery Method Room Air <Francois Mcnulty MD - Last Filed: 08/18/23 11:32> Orders Ordered: Discontinued Medications Acetaminophen (Acetaminophen 325 Mg Tablet) 650 mg PO Q6H PRN PRN Reason: Fever/Mild Pain (1-3) Last Admin: 08/14/23 21:06 Dose: 650 mg Documented By: JOCE Amlodipine Besylate (Amlodipine 5 Mg Tablet) 5 mg PO DAILY [facility] Last Admin: 08/14/23 10:14 Dose: Not Given Documented By: FREDA Atorvastatin Calcium (Atorvastatin 20 Mg Tablet) 40 mg PO BEDTIME [facility] Last Admin: 08/16/23 21:23 Dose: 40 mg Documented By: Admin: 08/15/23 21:13 Dose: 40 mg Documented By: Admin: 08/14/23 20:09 Dose: 40 mg Documented By: JOCE Heparin Sodium (Porcine) (Heparin 5,000 Unit/Ml Vial) 5,000 unit SUBCUT BID [facility] Last Admin: 08/17/23 08:21 Dose: 5,000 unit Documented By: Admin: 08/16/23 21:23 Dose: 5,000 unit Documented By: Admin: 08/16/23 08:43 Dose: 5,000 unit Documented By: Admin: 08/15/23 21:13 Dose: 5,000 unit Documented By: Admin: 08/14/23 10:12 Dose: 5,000 unit Documented By: FREDA Ceftriaxone Sodium 1,000 mg/ (Sodium Chloride) 100 mls @ 200 mls/hr IV NOW ONE Stop: 08/14/23 04:21 Last Infusion: 08/14/23 05:37 Dose: Infused Documented By: Admin: 08/14/23 04:32 Dose: 200 mls/hr Documented By: DALLIN Sodium Chloride (Normal Saline 0.9%) 1,000 mls @ 1,000 mls/hr IV BOLUS ONE Stop: 08/14/23 06:07 Last Infusion: 08/14/23 07:24 Dose: Infused Documented By: Admin: 08/14/23 05:37 Dose: 1,000 mls/hr Documented By: DALLIN Sodium Chloride (Normal Saline 0.9%) 1,000 mls @ 100 mls/hr IV CONT [facility] Stop: 08/14/23 21:14 Last Infusion: 08/14/23 21:30 Dose: Infused Documented By: Admin: 08/14/23 20:09 Dose: 100 mls/hr Documented By: Infusion: 08/14/23 20:09 Dose: Infused Documented By: Admin: 08/14/23 10:09 Dose: 100 mls/hr Documented By: FREDA Ceftriaxone Sodium 1,000 mg/ (Sodium Chloride) 100 mls @ 200 mls/hr IV Q24H [facility] Stop: 08/18/23 07:01 Last Admin: 08/17/23 06:24 Dose: 200 mls/hr Documented By: Infusion: 08/17/23 03:06 Dose: Infused Documented By: Admin: 08/16/23 06:29 Dose: 200 mls/hr Documented By: Infusion: 08/15/23 07:40 Dose: Infused Documented By: Admin: 08/15/23 06:33 Dose: 200 mls/hr Documented By: JOCE Sodium Chloride (Normal Saline 0.9%) 250 mls @ 21 mls/hr IV Q24H PRN PRN Reason: Flush Sodium Chloride (Normal Saline 0.9%) 1,000 mls @ 125 mls/hr IV CONT [facility] Stop: 08/15/23 22:59 Last Admin: 08/15/23 17:39 Dose: 125 mls/hr Documented By: Infusion: 08/15/23 17:39 Dose: Infused Documented By: Admin: 08/15/23 11:08 Dose: 125 mls/hr Documented By: LUNA Sodium Chloride (Normal Saline 0.9%) 1,000 mls @ 100 mls/hr IV CONT [facility] Stop: 08/16/23 22:44 Last Admin: 08/16/23 11:17 Dose: 100 mls/hr Documented By: ALEXEI Lidocaine HCl (Lidocaine 2% (Glydo) 6 Ml Gel) 6 ml TOP NOW ONE Stop: 08/14/23 04:44 Last Admin: 08/14/23 05:40 Dose: 6 ml Documented By: DALLIN Naloxone HCl (Naloxone 0.4 Mg/Ml Vial) 0.2 mg IV Q2MIN PRN PRN Reason: Opiate Reversal Ondansetron HCl (Ondansetron 4 Mg/2 Ml Inj) 4 mg IV Q4HR PRN PRN Reason: Nausea And Vomiting Oxybutynin (Oxybutynin 5 Mg Tablet) 5 mg PO BID [facility] Oxybutynin (Oxybutynin 5 Mg Tablet) 5 mg PO BID [facility] Last Admin: 08/17/23 08:21 Dose: 5 mg Documented By: Admin: 08/16/23 21:23 Dose: 5 mg Documented By: Admin: 08/16/23 08:43 Dose: 5 mg Documented By: Admin: 08/15/23 21:13 Dose: 5 mg Documented By: Admin: 08/15/23 10:04 Dose: 5 mg Documented By: Admin: 08/14/23 22:25 Dose: 5 mg Documented By: JOCE Sodium Chloride (Sodium Chloride 0.9% Flush) 10 ml IV PRN PRN PRN Reason: Flush Last Admin: 08/15/23 06:33 Dose: 10 ml Documented By: JOCE Sodium Chloride (Sodium Chloride 0.9% Flush) 10 ml IV BID [facility] Last Admin: 08/17/23 08:21 Dose: 10 ml Documented By: Admin: 08/16/23 21:23 Dose: 10 ml Documented By: Admin: 08/16/23 08:44 Dose: 10 ml Documented By: Admin: 08/15/23 21:13 Dose: 10 ml Documented By: Admin: 08/15/23 09:05 Dose: 10 ml Documented By: MM Tamsulosin HCl (Tamsulosin 0.4 Mg Capsule) 0.4 mg PO DAILY [facility] Last Admin: 08/17/23 08:21 Dose: 0.4 mg Documented By: Admin: 08/16/23 08:43 Dose: 0.4 mg Documented By: Admin: 08/15/23 10:05 Dose: 0.4 mg Documented By: Admin: 08/14/23 10:12 Dose: 0.4 mg Documented By: FREDA Vital Signs Vital signs: Vital Signs - 8 hr 08/14/23 04:18 Temperature 98.6 F Pulse Rate 102 H Respiratory Rate 18 Blood Pressure 166/74 H Pulse Oximetry 95 Oxygen Delivery Method Room Air MDM - Male Genitourinary <Leti Oliver, DO - Last Filed: 08/16/23 07:34> Lab Data 08/17/23 04:46 08/17/23 04:46 Labs: Lab Results 08/14/23 08/14/23 08/14/23 Range/Units 04:30 05:25 07:22 WBC 13.9 H (4.5-11.0) X10^3/uL RBC 4.52 (4.5-5.9) X10^6/uL Hgb 14.9 (13.5-17.5) g/dL Hct 43.8 (41-53) % MCV 97.0 (80-100) fL MCH 32.9 (26-34) PG MCHC 33.9 (30-36) % RDW 14.9 H (11.6-14.8) % Plt Count 184 (150-400) X10^3/uL Neut % (Auto) 93.8 H (50-75) % Lymph % (Auto) 2.1 L (25-40) % Real % (Auto) 2.8 L (3-14) % Eos % (Auto) 0.5 L (2-4) % Baso % (Auto) 0.8 (0-2) % Neut # (Auto) 49164 H (7578-8500) /uL Lymph # (Auto) 300 L (3567-6772) /uL Real # (Auto) 400 (0-900) /uL Eos # (Auto) 100 (0-450) /uL Baso # (Auto) 100 (0-100) /uL Sodium 136 L 135 L (137-145) mmol/L Potassium 3.5 3.5 (3.4-5.1) mmol/L Chloride 104 108 H (98-107) mmol/L Carbon Dioxide 20 L 21 L (22-32) mmol/L BUN 62 H 63 H (9-20) mg/dL Creatinine 5.22 H 4.62 H (0.66-1.25) mg/dL Estimated GFR 11 L 12 L (>60) mL/min BUN/Creatinine Ratio 11.9 13.6 (6-22) Glucose 130 H 105 (80-110) mg/dL Lactate 1.2 (0.7-2.1) mmol/L Calcium 9.0 8.3 L (8.4-10.2) mg/dL Total Bilirubin 0.8 (0.2-1.3) mg/dL AST 49 (17-59) IU/L ALT 45 (<50) IU/L Alkaline Phosphatase 137 H (38-126) U/L Total Protein 7.2 (6.3-8.2) g/dL Albumin 4.0 (3.5-5.0) g/dL Globulin 3.2 (1.7-4.1) g/dL Albumin/Globulin Ratio 1.3 (1.0-2.8) Urine Color Yellow Urine Appearance Clear Urine pH 5.5 (4.5-8.0) Ur Specific [place] 1.010 (1.000-1.035) Urine Protein 1+ H (Negative) Urine Glucose (UA) Negative (Negative) g/dL Urine Ketones Negative (NEGATIVE) Urine Occult Blood 1+ H (Negative) Urine Nitrate Positive H (Negative) Urine Bilirubin Negative (NEGATIVE) Urine Urobilinogen 1.0 (0.2) E.U./dL Ur Leukocyte Esterase Trace H (NEGATIVE) Urine RBC None seen (0-5/HPF) Urine WBC 1-5/hpf (0-5/HPF) Ur Squamous Epith Cells 0-1 /hpf (0-5/HPF) Urine Bacteria Few (2-10) H (None) Ur Culture Indicated? Specimen cultured Vol Urine Centrifuged 10ml (spun) MDM Narrative Medical decision making narrative: Patient 70-year-old male history of gout hypertension hyperlipidemia presenting today with bladder spasm painful frequent urination. He was diagnosed with a UTI 3 days ago started appropriately on Bactrim. Culture does show E coli and is in sensitive to fluoroquinolones but sensitive to everything else. He continues to report bladder spasm and urinary urgency and frequency. He does have greater than 500 cc in his bladder. Jiang catheter was placed and he instantly felt better. Blood work has been reviewed he has leukocytosis of 13.9, and creatinine 5.2 on 07/26/2023 was 1.4, sodium 139, potassium 3.5, chloride 104, carbon dioxide 20 BUN 32, glucose 130, lactate 1.2 Patient is found to have significant AURA with increase in creatinine of 5.2. This is thought secondary to be post renal obstruction secondary to bladder spasm and UTI. He is given IV fluids and Rocephin. Repeat blood work, is pending Patient signed out to Dr. Oliver. <Francois Mcnulty MD - Last Filed: 08/18/23 11:32> Lab Data Labs: Lab Results 08/14/23 08/14/23 08/14/23 Range/Units 04:30 05:25 07:22 WBC 13.9 H (4.5-11.0) X10^3/uL RBC 4.52 (4.5-5.9) X10^6/uL Hgb 14.9 (13.5-17.5) g/dL Hct 43.8 (41-53) % MCV 97.0 (80-100) fL MCH 32.9 (26-34) PG MCHC 33.9 (30-36) % RDW 14.9 H (11.6-14.8) % Plt Count 184 (150-400) X10^3/uL Neut % (Auto) 93.8 H (50-75) % Lymph % (Auto) 2.1 L (25-40) % Real % (Auto) 2.8 L (3-14) % Eos % (Auto) 0.5 L (2-4) % Baso % (Auto) 0.8 (0-2) % Neut # (Auto) 61905 H (4775-2760) /uL Lymph # (Auto) 300 L (0529-3821) /uL Real # (Auto) 400 (0-900) /uL Eos # (Auto) 100 (0-450) /uL Baso # (Auto) 100 (0-100) /uL Sodium 136 L 135 L (137-145) mmol/L Potassium 3.5 3.5 (3.4-5.1) mmol/L Chloride 104 108 H (98-107) mmol/L Carbon Dioxide 20 L 21 L (22-32) mmol/L BUN 62 H 63 H (9-20) mg/dL Creatinine 5.22 H 4.62 H (0.66-1.25) mg/dL Estimated GFR 11 L 12 L (>60) mL/min BUN/Creatinine Ratio 11.9 13.6 (6-22) Glucose 130 H 105 (80-110) mg/dL Lactate 1.2 (0.7-2.1) mmol/L Calcium 9.0 8.3 L (8.4-10.2) mg/dL Total Bilirubin 0.8 (0.2-1.3) mg/dL AST 49 (17-59) IU/L ALT 45 (<50) IU/L Alkaline Phosphatase 137 H (38-126) U/L Total Protein 7.2 (6.3-8.2) g/dL Albumin 4.0 (3.5-5.0) g/dL Globulin 3.2 (1.7-4.1) g/dL Albumin/Globulin Ratio 1.3 (1.0-2.8) Urine Color Yellow Urine Appearance Clear Urine pH 5.5 (4.5-8.0) Ur Specific [place] 1.010 (1.000-1.035) Urine Protein 1+ H (Negative) Urine Glucose (UA) Negative (Negative) g/dL Urine Ketones Negative (NEGATIVE) Urine Occult Blood 1+ H (Negative) Urine Nitrate Positive H (Negative) Urine Bilirubin Negative (NEGATIVE) Urine Urobilinogen 1.0 (0.2) E.U./dL Ur Leukocyte Esterase Trace H (NEGATIVE) Urine RBC None seen (0-5/HPF) Urine WBC 1-5/hpf (0-5/HPF) Ur Squamous Epith Cells 0-1 /hpf (0-5/HPF) Urine Bacteria Few (2-10) H (None) Ur Culture Indicated? Specimen cultured Vol Urine Centrifuged 10ml (spun) MDM Narrative Medical decision making narrative: Patient 70-year-old male history of gout hypertension hyperlipidemia presenting today with bladder spasm painful frequent urination. He was diagnosed with a UTI 3 days ago started appropriately on Bactrim. Culture does show E coli and is in sensitive to fluoroquinolones but sensitive to everything else. He continues to report bladder spasm and urinary urgency and frequency. He does have greater than 500 cc in his bladder. Jiang catheter was placed and he instantly felt better. Blood work has been reviewed he has leukocytosis of 13.9, and creatinine 5.2 on 07/26/2023 was 1.4, sodium 139, potassium 3.5, chloride 104, carbon dioxide 20 BUN 32, glucose 130, lactate 1.2 Patient is found to have significant AURA with increase in creatinine of 5.2. This is thought secondary to be post renal obstruction secondary to bladder spasm and UTI. He is given IV fluids and Rocephin. Repeat blood work, is pending Patient signed out to Dr. Mcnulty August 14, 2023 at 7:00 a.m.[place]: ?sign out from Dr Oliver, patient will need to be admitted. Repeat chemistries are pending. Rocephin has been given for UTI 7:30 a.m.. Spoke with patient he does understand need for admission due to renal function changes. IV fluids have been started. 8:36 a.m.. Spoke with hospitalist, Dr. Apodaca, he will admit patient Discharge Plan Departure Patient Disposition: Admitted as Observation Clinical Impression: Acute UTI, Acute urinary retention, AURA (acute kidney injury) Admit Date/Time: 08/14/23 08:56 Admit Provider: Olegario Apodaca
[2023-08-14 04:43] LABS: Add Manual Diff / Slide Review NO; Basophils Absolute Auto 100 /uL (0-100); Basophils Percent Auto 0.8 % (0-2); Eosinophils Absolute Auto 100 /uL (0-450); Eosinophils Percent Auto 0.5 % (2-4); Hematocrit 43.8 % (41-53); Hemoglobin 14.9 g/dL (13.5-17.5); Lymphocytes Absolute Auto 300 /uL (1100-4500); Lymphocytes Percent Auto 2.1 % (25-40); Mean Corpuscular HGB Conc 33.9 % (30-36); Mean Corpuscular Hemoglobin 32.9 PG (26-34); Monocytes Absolute Auto 400 /uL (0-900); Monocytes Percent Auto 2.8 % (3-14); Neutrophils Absolute Auto 13100 /uL (1500-7000); Neutrophils Percent Auto 93.8 % (50-75); Platelet Count 184 X10^3/uL (150-400); Red Blood Cell Count 4.52 X10^6/uL (4.5-5.9); Red Cell Distribution Width 14.9 % (11.6-14.8); White Blood Cell Count 13.9 X10^3/uL (4.5-11.0)
--- NOTE | 2023-08-14 04:45 | PC.NURSE ---
Bladder scan 550 cc, Melody MULLINS notified.
[2023-08-14 04:53] LABS: Lactate (Lactic Acid) 1.2 mmol/L (0.7-2.1)
[2023-08-14 04:54] LABS: Alanine Aminotransferase 45 IU/L (<50); Albumin Globulin Ratio 1.3 (1.0-2.8); Alkaline Phosphatase 137 U/L (38-126); Aspartate Aminotransferase 49 IU/L (17-59); BUN Creatinine Ratio 11.9 (6-22); Bilirubin Total 0.8 mg/dL (0.2-1.3); Blood Urea Nitrogen 62 mg/dL (9-20); Carbon Dioxide 20 mmol/L (22-32); Chloride 104 mmol/L (98-107); Estimated Glomerular Filt Rate 11 mL/min (>60); Globulin 3.2 g/dL (1.7-4.1); Glucose 130 mg/dL (80-110); HEMOLYSIS < 15 (0-50); Potassium 3.5 mmol/L (3.4-5.1); Sodium 136 mmol/L (137-145); Total Protein 7.2 g/dL (6.3-8.2)
[2023-08-14] MEDS: SODIUM CHLORIDE 0.9% 1,000 ML 1000 ML IV (05:37)
[2023-08-14 05:38] LABS: Appearance Urine UA CLEAR; Bilirubin Urine UA NEGATIVE (NEGATIVE); Color Urine UA YELLOW; Glucose Urine UA NEGATIVE (Negative); Ketones Urine UA NEGATIVE (NEGATIVE); Leukocyte Esterase Urine UA TRACE (NEGATIVE); Nitrite Urine UA POSITIVE (Negative); Occult Blood Urine UA 1+ (Negative); Protein Urine UA 1+ (Negative); pH Urine UA 5.5 (4.5-8.0)
[2023-08-14] MEDS: LIDOCAINE 2% (GLYDO) 6 ML GEL TOP (05:40)
[2023-08-14 05:44] LABS: Bacteria Urine Few (2-10); Culture Indicated Urine Specimen Cultured; RBC Urine None Seen (0-5/HPF); Squamous Epithelial Cell Urine 0-1 /HPF (0-5/HPF); Urine Volume 10mL (spun); WBC Urine 1-5/HPF (0-5/HPF)
[2023-08-14 07:44] LABS: BUN Creatinine Ratio 13.6 (6-22); Blood Urea Nitrogen 63 mg/dL (9-20); Calcium 8.3 mg/dL (8.4-10.2); Carbon Dioxide 21 mmol/L (22-32); Chloride 108 mmol/L (98-107); Estimated Glomerular Filt Rate 12 mL/min (>60); Glucose 105 mg/dL (80-110); HEMOLYSIS < 15 (0-50); Potassium 3.5 mmol/L (3.4-5.1); Sodium 135 mmol/L (137-145)
--- NOTE | 2023-08-14 08:38 | P.HP_ITS ---
History of Present Illness History of Present Illness Date Patient Seen: 08/14/23 Chief complaint: uti Narrative: Sanford Mccollum is a 78-year-old male with past medical history of hypertension, hyperlipidemia, BPH follows with Dr. Chaparro urology, gout, and kidney stones who initially presented to the ED on 08/09 for dysuria and bladder spasms so was given p.o. Bactrim for UTI. Previous urine culture grew E. coli. Returns today feeling overall malaise and ongoing bladder spasms. Found to have AURA with creatinine of 5.2 with his baseline being 1.4. Found to have 500cc in bladder in ED and coffey was placed. There is now some reddish blood in the coffey bag but patient denies hematuria. He see's Dr. Chaparro for monitoring his PSA, and has an appointment with him in September. He reports normally needing to pee 5x per day but not at night. He is not on medications for his prostate. He denies CP, SOB, NV, abd pain or diarrhea. [facility] Medical History Osteoarthritis (~1999) Allergies (~1948) Shoulder pain (~2017) Lumbar disc disease (~2015) Fractures (~1999) Foot pain (~2017) Chronic back pain (~2013) Carpal tunnel syndrome (~2017) Ankle pain (~2017) Mumps (~1953) Measles (~1953) Chicken pox (~1948) Tinnitus Hearing loss (~1969) Cataracts, bilateral (~2017) Slow transit constipation Advanced directives, counseling/discussion Mixed hyperlipidemia Essential hypertension Feeling of incomplete bladder emptying History of kidney stones Lower urinary tract symptoms Benign prostatic hyperplasia Rising PSA level Elevated PSA (~2022) Male circumcision Gout (~2014) Surgical History (Updated 08/07/23 @ 21:08 by Kacey Sousa) Anesthesia History of cataract removal with insertion of prosthetic lens (~2019) History of carpal tunnel release (~2021) History of shoulder surgery (~2020) H/O vasectomy History of back surgery (~2015) Family History (Updated 08/07/23 @ 21:09 by Kacey Sousa) Mother COPD (chronic obstructive pulmonary disease) Brother Cancer Social History marital status: number of children: 2 household members: spouse Smoking Status: Former smoker alcohol intake: former Type(s) of exercise: walking and weight lifting frequency: 3-4 times per week Meds Home Medications and Allergies Home Medications Medication Instructions Recorded Confirmed Type vitamins A,C,E-fghi-clbimf 4,296 1 cap PO BID 04/12/22 08/14/23 History mcg-226 mg-90 mg capsule (PreserVision AREDS) naproxen sodium 220 mg capsule 220 - 440 mg PO BID PRN Pain 04/28/22 08/14/23 History (Scale Score 4-6) allopurinol 100 mg tablet 200 mg (2 x 100 mg) PO DAILY #180 07/25/23 08/14/23 Rx tabs cholecalciferol (vitamin D3) 125 125 mcg PO DAILY 07/25/23 08/14/23 History mcg (5,000 unit) capsule lisinopril 20 1 tab PO DAILY #90 tabs 07/25/23 08/14/23 Rx mg-hydrochlorothiazide 25 mg tablet omega 0-vva-ukw-fish oil 1,000 mg 1 cap PO DAILY 07/25/23 08/14/23 History (120 mg-180 mg) capsule (Fish Oil) rosuvastatin 20 mg tablet 20 mg PO DAILY #90 tabs 07/25/23 08/14/23 Rx sea-iodine 1 cap PO DAILY 07/25/23 08/14/23 History Allergies Allergy/AdvReac Type Severity Reaction Status Date / Time oxycodone [From PERCOCET] Allergy Severe RASH Verified 07/25/23 08:14 sulfamethoxazole AdvReac Intermediate Verified 08/14/23 08:46 [From Bactrim] trimethoprim [From Bactrim] AdvReac Intermediate Verified 08/14/23 08:46 Review of Systems Review of Systems Narrative: All other systems reviewed with the patient and are negative unless otherwise stated. Exam Vital Signs (past 8 hours): - 08/14/23 04:18 Temperature 98.6 F Pulse Rate 102 H Respiratory Rate 18 Blood Pressure 166/74 H Pulse Oximetry 95 Oxygen Delivery Method Room Air Oxygen Delivery Method Room Air Narrative Exam Narrative: GEN: no acute distress HEENT: moist mucous membranes, PERRL NECK: trachea midline, no JVD CV: regular rate and rhythm, no murmurs PULM: clear bilaterally ABD: soft, nontender, nondistended, no organomegaly : Coffey present with dark reddish urine in bag EXT: warm and well perfused with no edema NEURO: awake, alert, oriented, no focal deficits Objective Labs 08/14/23 04:30 08/14/23 07:22 Labs: Laboratory Results - last 24 hr 08/14/23 08/14/23 08/14/23 04:30 05:25 07:22 WBC 13.9 H RBC 4.52 Hgb 14.9 Hct 43.8 MCV 97.0 MCH 32.9 MCHC 33.9 RDW 14.9 H Plt Count 184 Neut % (Auto) 93.8 H Lymph % (Auto) 2.1 L [place] % (Auto) 2.8 L Eos % (Auto) 0.5 L Baso % (Auto) 0.8 Neut # (Auto) 55233 H Lymph # (Auto) 300 L [place] # (Auto) 400 Eos # (Auto) 100 Baso # (Auto) 100 Sodium 136 L 135 L Potassium 3.5 3.5 Chloride 104 108 H Carbon Dioxide 20 L 21 L BUN 62 H 63 H Creatinine 5.22 H 4.62 H Estimated GFR 11 L 12 L BUN/Creatinine Ratio 11.9 13.6 Glucose 130 H 105 Lactate 1.2 Calcium 9.0 8.3 L Total Bilirubin 0.8 AST 49 ALT 45 Alkaline Phosphatase 137 H Total Protein 7.2 Albumin 4.0 Globulin 3.2 Albumin/Globulin Ratio 1.3 Urine Color Yellow Urine Appearance Clear Urine pH 5.5 Ur Specific [place] 1.010 Urine Protein 1+ H Urine Glucose (UA) Negative Urine Ketones Negative Urine Occult Blood 1+ H Urine Nitrate Positive H Urine Bilirubin Negative Urine Urobilinogen 1.0 Ur Leukocyte Esterase Trace H Urine RBC None seen Urine WBC 1-5/hpf Ur Squamous Epith Cells 0-1 /hpf Urine Bacteria Few (2-10) H Ur Culture Indicated? Specimen cultured Vol Urine Centrifuged 10ml (spun) Assessment & Plan Assessment & Plan narrative: # AURA secondary to concurrent Bactrim and lisinopril use, in setting of ROSENBAUM -etiology likely prerenal, intrarenal and postrenal, given improvement in Cr with 1L NS in ED and placement of coffey -Cr 5.22 on admission, now downtrended to 4.62 -continue IVF -put bactrim on allergy list -hold lisinopril -strict I/O's -avoid NSAID's # UTI, likely from chronic bladder outlet obstruction -prior culture from ED grew E. coli -continue rocephin -continue coffey # BPH with LUTS -follows with Dr. Chaparro urology -had 500cc out when coffey placed in ED -start flomax -continue coffey until follow-up with Dr. Chaparro in clinic # HTN -hold lisinopril/HCTZ -start amlodipine if BP becomes elevated # gout -hold allopurinol for now due to AURA # HLD -continue statin Code status is full code. DVT prophylaxis with heparin. Proxy is Michelle. I have reviewed home meds and used all available resources to reconcile the home meds. Case discussed with ED physician/APC and patient will be admitted to the hospitalist service for further workup and management. This patient will be admitted as inpatient and will require greater than 2 midnights of hospital time to treat AURA.
[2023-08-14 09:17] VITALS: BP 123/61; PULSE 67; RESP 12; O2SAT 97
[2023-08-14 09:25] VITALS: BP 134/67; PULSE 65; RESP 16; TEMP 36.6; O2SAT 96
[2023-08-14 09:39] VITALS: BMI 62.1
[2023-08-14] MEDS: SODIUM CHLORIDE 0.9% 1,000 ML 100 ML IV ×2 (10:09→20:09)
[2023-08-14] MEDS: HEPARIN 5,000 UNIT/ML VIAL 5000 UNIT SUBCUT (10:12)
[2023-08-14] MEDS: TAMSULOSIN 0.4 MG CAPSULE PO (10:12)
[2023-08-14 14:00] VITALS: BP 138/64; PULSE 82; RESP 16; TEMP 36.6; O2SAT 94
[2023-08-14 17:54] VITALS: BP 134/57; PULSE 69; RESP 20; TEMP 36.6; O2SAT 96
[2023-08-14 20:06] VITALS: BP 116/64; PULSE 77; RESP 16; TEMP 36.8; O2SAT 94
[2023-08-14] MEDS: ATORVASTATIN 20 MG TABLET 40 MG PO (20:09)
[2023-08-14] MEDS: ACETAMINOPHEN 325 MG TABLET 650 MG PO (21:06)
[2023-08-14] MEDS: OXYBUTYNIN 5 MG TABLET PO (22:25)
[2023-08-15] VITALS (7 sets, daily range): BP systolic 105–146; BP diastolic 55–73; PULSE 60–75; RESP 14–17; TEMP 36.6–36.8; O2SAT 93–97
--- NOTE | 2023-08-15 00:12 | PC.NURSE ---
Addendum entered by Itzel Gonzales R.N. 08/15/23 06:50: Patient slept most of night but now this morning has, again, begun complaining of increasing pain. Initially pain 8/10 and medicated with oxycodone which he states brought his pain down to 6/10 but then began to worsen an hour later so required IV Dilaudid for pain relief. Up to BSC and voided only 50cc of urine and bladder scan showed 476cc in bladder. Dr. Maddox paged and message left for her to call RN back as wanting to inquire as to whether catheter should be left in rather than doing in/out catheterization. As of this time she has not returned the call. Patient denies feeling uncomfortable so discussed with coordinator, Chitra, who felt it should wait until MD responds or PA arrives and can be asked which they want done. Patient informed of situation and is agreeable. Original Note: Patient is alert and oriented but seems [place]. Breath sounds CTA with RA sat of 94%. HRR. Denied nausea. BT present and had BM on previous shift. Indwelling catheter is patent; urine is clear marilia with orange tinge; had small clots on previous shift. Is able to move himself in bed. Gait not assessed as declined to ambulate but previous RN reported he uses cane and SBA but is steady on feet. Refusing SCD's despite education re: DVT prevention so reminded to ankle wave and encouraged ambulation in halls. Did complain of abdominal discomfort that comes in waves and was medicated with tylenol without relief. Described further as bladder spasms and Dr. Munoz was contacted and order given of oxybutinin which was started tonight. Fall risk score is high and bed alarm is activated.
[2023-08-15 05:06] LABS: Add Manual Diff / Slide Review NO; Basophils Absolute Auto 0 /uL (0-100); Basophils Percent Auto 0.2 % (0-2); Eosinophils Absolute Auto 100 /uL (0-450); Eosinophils Percent Auto 1.2 % (2-4); Hematocrit 36.5 % (41-53); Hemoglobin 12.3 g/dL (13.5-17.5); Lymphocytes Absolute Auto 1000 /uL (1100-4500); Lymphocytes Percent Auto 9.1 % (25-40); Mean Corpuscular HGB Conc 33.6 % (30-36); Monocytes Absolute Auto 1100 /uL (0-900); Neutrophils Absolute Auto 8900 /uL (1500-7000); Neutrophils Percent Auto 79.5 % (50-75); Platelet Count 163 X10^3/uL (150-400); Red Blood Cell Count 3.72 X10^6/uL (4.5-5.9); Red Cell Distribution Width 14.9 % (11.6-14.8); White Blood Cell Count 11.2 X10^3/uL (4.5-11.0)
[2023-08-15 05:46] LABS: BUN Creatinine Ratio 13.1 (6-22); Blood Urea Nitrogen 55 mg/dL (9-20); Calcium 8.4 mg/dL (8.4-10.2); Carbon Dioxide 19 mmol/L (22-32); Chloride 110 mmol/L (98-107); Estimated Glomerular Filt Rate 14 mL/min (>60); Glucose 104 mg/dL (80-110); HEMOLYSIS < 15 (0-50); Potassium 3.9 mmol/L (3.4-5.1); Sodium 136 mmol/L (137-145)
[2023-08-15] MEDS: cefTRIAXone 1,000 MG in SODIUM CHLORIDE 0.9% 100 ML 200 MG IV (06:33)
[2023-08-15] MEDS: SODIUM CHLORIDE 0.9% FLUSH 10 ML IV ×3 (06:33→21:13)
[2023-08-15] MEDS: OXYBUTYNIN 5 MG TABLET PO ×2 (10:04→21:13)
[2023-08-15] MEDS: TAMSULOSIN 0.4 MG CAPSULE PO (10:05)
[2023-08-15] MEDS: SODIUM CHLORIDE 0.9% 1,000 ML 125 ML IV ×2 (11:08→17:39)
--- NOTE | 2023-08-15 11:55 | CM.DANOTE ---
DCP Assessment Note- Brief Pt is a 78yo M here following UTI/AURA. Pt was in the ED on 08/09, discharged home on PO abx, and returned with continued bladder spasms. PCP Ian MILNER Medicare and self pay NEWS INTERN reviewed EMR. per hospitalist in morning rounds, pt's kidney function is improving. Likely here another two days for IV abx. will recommend f/u with Urology at discharge. Per chart review, pt lives with spouse Michelle in [place]. Per chart review, pt is indep at baseline. Per hospitalist/RN, no obvious DCP needs. Per RN, pt sleeping during time of attempted assessment. NEWS INTERN allowed pt to rest. P: anticipate home with spouse in two days/when medically stable. no identified barriers to safe return home at this time. CM team will continue to follow as needed. JAREK Lake Discharge Planning/Care Management CM Discharge Assessment Start: 08/15/23 11:52 Freq: Status: Active Protocol: Document 08/15/23 11:52 (Rec: 08/15/23 11:55 [id number]) Discharge Planning Assessment Assigned Financial Service Representative JAREK Buchanan DPOA/Assigned Designee Name Michelle spouse Contact Information [phone] Advance Directives? No History Provided By Patient Prior Living Arrangements House Household Members spouse Independent with ADL's Yes Is patient alert and oriented? Yes Barriers to Discharge No Discharge Plan Home Referrals Initiated None needed Whiteboard Updated in Patient Room with No name and ext. # of Financial Service Representative Review Status In Process Please Provide Date Initial DC 08/15/23 Assessment Was Performed Next Review Type Continued Stay Review
--- NOTE | 2023-08-15 14:50 | P.PN_ITS ---
Subjective Subjective Interval history: Cr continues to downtrend from 4.6 to 4.19. Patient's hematuria has resolved. He has no complaints. Exam Vital Signs (past 8 hours): - 08/15/23 08:00 08/15/23 12:00 Temperature 98.3 F 98 F Pulse Rate 63 69 Respiratory Rate 16 16 Blood Pressure 105/59 L 133/73 Pulse Oximetry 97 93 Oxygen Flow Rate 0 0 Oxygen Delivery Method Room Air Oxygen Flow Rate 0 Narrative Exam Narrative: GEN: no acute distress HEENT: moist mucous membranes, PERRL NECK: trachea midline, no JVD CV: regular rate and rhythm, no murmurs PULM: clear bilaterally ABD: soft, nontender, nondistended, no organomegaly : Coffey present with orange colored urine in bag, no blood EXT: warm and well perfused with no edema NEURO: awake, alert, oriented, no focal deficits Objective Labs 08/15/23 04:44 08/15/23 04:44 Labs: Laboratory Results - last 24 hr 08/15/23 04:44 WBC 11.2 H RBC 3.72 L Hgb 12.3 L Hct 36.5 L MCV 98.0 MCH 33.0 MCHC 33.6 RDW 14.9 H Plt Count 163 Neut % (Auto) 79.5 H Lymph % (Auto) 9.1 L [place] % (Auto) 10.0 Eos % (Auto) 1.2 L Baso % (Auto) 0.2 Neut # (Auto) 8900 H Lymph # (Auto) 1000 L [place] # (Auto) 1100 H Eos # (Auto) 100 Baso # (Auto) 0 Sodium 136 L Potassium 3.9 Chloride 110 H Carbon Dioxide 19 L BUN 55 H Creatinine 4.19 H Estimated GFR 14 L BUN/Creatinine Ratio 13.1 Glucose 104 Calcium 8.4 PFSH Medical History Osteoarthritis (~2000) Allergies (~1949) Shoulder pain (~2018) Lumbar disc disease (~2016) Fractures (~1999) Foot pain (~2018) Chronic back pain (~2014) Carpal tunnel syndrome (~2018) Ankle pain (~2018) Mumps (~195) Measles (~195) Chicken pox (~194) Tinnitus Hearing loss (~1970) Cataracts, bilateral (~2018) Slow transit constipation Advanced directives, counseling/discussion Mixed hyperlipidemia Essential hypertension Feeling of incomplete bladder emptying History of kidney stones Lower urinary tract symptoms Benign prostatic hyperplasia Rising PSA level Elevated PSA (~2022) Male circumcision Gout (~2014) Surgical History (Updated 08/07/23 @ 21:08 by Kacey Sousa) Anesthesia History of cataract removal with insertion of prosthetic lens (~2019) History of carpal tunnel release (~2021) History of shoulder surgery (~2020) H/O vasectomy History of back surgery (~2015) Family History (Updated 08/07/23 @ 21:09 by Kacey Sousa) Mother COPD (chronic obstructive pulmonary disease) Brother Cancer Social History marital status: number of children: 2 household members: spouse Smoking Status: Former smoker alcohol intake: former Type(s) of exercise: walking and weight lifting frequency: 3-4 times per week Assessment & Plan Assessment & Plan narrative: # AURA secondary to concurrent Bactrim and lisinopril use, in setting of ROSENBAUM -etiology likely prerenal, intrarenal and postrenal, given improvement in Cr with 1L NS in ED and placement of coffey -Cr 5.22 on admission, now downtrended to 4.19 -continue IVF -put bactrim on allergy list -hold lisinopril -strict I/O's -avoid NSAID's # UTI, likely from chronic bladder outlet obstruction -prior culture from ED grew E. coli, repeat culture with GNR -continue rocephin x1 week -continue coffey -f/up 2nd urine culture results # BPH with LUTS -follows with Dr. Chaparro urology -had 500cc out when coffey placed in ED -started flomax -continue coffey until follow-up with Dr. Chaparro in clinic # HTN -hold lisinopril/HCTZ -start amlodipine if BP becomes elevated # gout -hold allopurinol for now due to AURA # HLD -continue statin Code status is full code. DVT prophylaxis with heparin. Proxy is Michelle. Dispo: Home in 1-2 days pending improvement in Cr.
[2023-08-15] MEDS: ATORVASTATIN 20 MG TABLET 40 MG PO (21:13)
[2023-08-15] MEDS: HEPARIN 5,000 UNIT/ML VIAL 5000 UNIT SUBCUT (21:13)
[2023-08-16 02:15] VITALS: BP 134/80; PULSE 80; RESP 18; TEMP 37; O2SAT 96
[2023-08-16 05:11] LABS: Add Manual Diff / Slide Review NO; Basophils Absolute Auto 0 /uL (0-100); Basophils Percent Auto 0.6 % (0-2); Eosinophils Absolute Auto 400 /uL (0-450); Eosinophils Percent Auto 4.8 % (2-4); Hematocrit 35.1 % (41-53); Lymphocytes Absolute Auto 1500 /uL (1100-4500); Lymphocytes Percent Auto 17.8 % (25-40); Mean Corpuscular HGB Conc 34.2 % (30-36); Mean Corpuscular Hemoglobin 33.2 PG (26-34); Mean Corpuscular Volume 97.2 fL (80-100); Monocytes Absolute Auto 1200 /uL (0-900); Monocytes Percent Auto 14.3 % (3-14); Neutrophils Absolute Auto 5200 /uL (1500-7000); Neutrophils Percent Auto 62.5 % (50-75); Platelet Count 185 X10^3/uL (150-400); Red Blood Cell Count 3.61 X10^6/uL (4.5-5.9); Red Cell Distribution Width 14.9 % (11.6-14.8); White Blood Cell Count 8.4 X10^3/uL (4.5-11.0)
[2023-08-16 05:47] LABS: BUN Creatinine Ratio 13.1 (6-22); Blood Urea Nitrogen 46 mg/dL (9-20); Calcium 8.3 mg/dL (8.4-10.2); Carbon Dioxide 21 mmol/L (22-32); Chloride 111 mmol/L (98-107); Estimated Glomerular Filt Rate 17 mL/min (>60); Glucose 99 mg/dL (80-110); HEMOLYSIS < 15 (0-50); Potassium 4.1 mmol/L (3.4-5.1); Sodium 136 mmol/L (137-145)
[2023-08-16] MEDS: cefTRIAXone 1,000 MG in SODIUM CHLORIDE 0.9% 100 ML 200 MG IV (06:29)
[2023-08-16 08:00] VITALS: BP 140/65; PULSE 62; RESP 14; TEMP 36.2; O2SAT 96
[2023-08-16] MEDS: HEPARIN 5,000 UNIT/ML VIAL 5000 UNIT SUBCUT ×2 (08:43→21:23)
[2023-08-16] MEDS: OXYBUTYNIN 5 MG TABLET PO ×2 (08:43→21:23)
[2023-08-16] MEDS: TAMSULOSIN 0.4 MG CAPSULE PO (08:43)
[2023-08-16] MEDS: SODIUM CHLORIDE 0.9% FLUSH 10 ML IV ×2 (08:44→21:23)
--- NOTE | 2023-08-16 10:40 | CM.DPNOTE ---
DCP Note ORAL PATHOLOGIST reviewed EMR. Per hospitalist in morning rounds, pt's creatinine remains too high to dc today. hospitalist hopeful for it to be closer to 2 prior to dc home (08/15/13 lab had pt's creatinine at 3.5). Pt needs one more day of iv antibiotics. P: anticipate home with spouse in one day/when medically stable. no identified barriers to safe return home at this time. CM team will continue to follow as needed. JAREK Lake
[2023-08-16] MEDS: SODIUM CHLORIDE 0.9% 1,000 ML 100 ML IV (11:17)
[2023-08-16 12:00] VITALS: BP 123/74; PULSE 64; RESP 14; TEMP 36.4; O2SAT 95
--- NOTE | 2023-08-16 14:32 | PM.PN.1 ---
Subjective Subjective Interval history: Cr now at 3.5. Patient has no complaints. IVF continues. Exam Vital Signs (past 8 hours): - 08/16/23 08:00 08/16/23 12:00 Temperature 97.2 F L 97.5 F L Pulse Rate 62 64 Respiratory Rate 14 14 Blood Pressure 140/65 123/74 Pulse Oximetry 96 95 Oxygen Flow Rate 0 0 Oxygen Delivery Method Room Air Oxygen Flow Rate 0 Narrative Exam Narrative: GEN: no acute distress HEENT: moist mucous membranes, PERRL NECK: trachea midline, no JVD CV: regular rate and rhythm, no murmurs PULM: clear bilaterally ABD: soft, nontender, nondistended, no organomegaly : Coffey present with orange colored urine in bag, no blood EXT: warm and well perfused with no edema NEURO: awake, alert, oriented, no focal deficits Objective Labs 08/16/23 04:33 08/16/23 04:33 Labs: Laboratory Results - last 24 hr 08/16/23 04:33 WBC 8.4 RBC 3.61 L Hgb 12.0 L Hct 35.1 L MCV 97.2 MCH 33.2 MCHC 34.2 RDW 14.9 H Plt Count 185 Neut % (Auto) 62.5 Lymph % (Auto) 17.8 L [place] % (Auto) 14.3 H Eos % (Auto) 4.8 H Baso % (Auto) 0.6 Neut # (Auto) 5200 Lymph # (Auto) 1500 [place] # (Auto) 1200 H Eos # (Auto) 400 Baso # (Auto) 0 Sodium 136 L Potassium 4.1 Chloride 111 H Carbon Dioxide 21 L BUN 46 H Creatinine 3.50 H Estimated GFR 17 L BUN/Creatinine Ratio 13.1 Glucose 99 Calcium 8.3 L PFSH Medical History Osteoarthritis (~2000) Allergies (~1949) Shoulder pain (~2018) Lumbar disc disease (~2016) Fractures (~2000) Foot pain (~2018) Chronic back pain (~2014) Carpal tunnel syndrome (~2018) Ankle pain (~2018) Mumps (~195) Measles (~1953) Chicken pox (~194) Tinnitus Hearing loss (~1970) Cataracts, bilateral (~2018) Slow transit constipation Advanced directives, counseling/discussion Mixed hyperlipidemia Essential hypertension Feeling of incomplete bladder emptying History of kidney stones Lower urinary tract symptoms Benign prostatic hyperplasia Rising PSA level Elevated PSA (~2022) Male circumcision Gout (~2014) Surgical History (Updated 08/07/23 @ 21:08 by Kacey Sousa) Anesthesia History of cataract removal with insertion of prosthetic lens (~2019) History of carpal tunnel release (~2021) History of shoulder surgery (~2020) H/O vasectomy History of back surgery (~2015) Family History (Updated 08/07/23 @ 21:09 by Kacey Sousa) Mother COPD (chronic obstructive pulmonary disease) Brother Cancer Social History marital status: number of children: 2 household members: spouse Smoking Status: Former smoker alcohol intake: former Type(s) of exercise: walking and weight lifting frequency: 3-4 times per week Assessment & Plan Assessment & Plan narrative: # AURA secondary to concurrent Bactrim and lisinopril use, in setting of ROSENBAUM -etiology likely prerenal, intrarenal and postrenal, given improvement in Cr with 1L NS in ED and placement of coffey -Cr 5.22 on admission, now downtrended to 3.5 -continue IVF -put bactrim on allergy list -hold lisinopril -strict I/O's -avoid NSAID's -once Cr in 2's patient can likely dc home with outpatient BMP in a few days # UTI, likely from chronic bladder outlet obstruction -prior culture from ED grew E. coli, repeat culture with GNR -continue rocephin x1 week -continue coffey -f/up 2nd urine culture results # BPH with LUTS -follows with Dr. Chaparro urology -had 500cc out when coffey placed in ED -started flomax -consider voiding trial vs continuing coffey until follow-up with Dr. Chaparro in clinic # HTN -hold lisinopril/HCTZ -start amlodipine if BP becomes elevated # gout -hold allopurinol for now due to AURA # HLD -continue statin Code status is full code. DVT prophylaxis with heparin. Proxy is Michelle. Dispo: Home likely on 08/16.
[2023-08-16 16:00] VITALS: BP 128/82; PULSE 66; RESP 14; TEMP 36.3; O2SAT 95
[2023-08-16 20:00] VITALS: BP 133/86; PULSE 61; RESP 18; TEMP 36.6; O2SAT 96
[2023-08-16] MEDS: ATORVASTATIN 20 MG TABLET 40 MG PO (21:23)
[2023-08-17 02:00] VITALS: BP 138/76; PULSE 70; RESP 18; TEMP 37; O2SAT 97
[2023-08-17 05:43] LABS: Add Manual Diff / Slide Review NO; Basophils Absolute Auto 100 /uL (0-100); Basophils Percent Auto 0.7 % (0-2); Eosinophils Absolute Auto 600 /uL (0-450); Hematocrit 35.5 % (41-53); Hemoglobin 12.1 g/dL (13.5-17.5); Lymphocytes Absolute Auto 1800 /uL (1100-4500); Lymphocytes Percent Auto 22.3 % (25-40); Mean Corpuscular HGB Conc 34.2 % (30-36); Mean Corpuscular Hemoglobin 33.2 PG (26-34); Mean Corpuscular Volume 97.1 fL (80-100); Monocytes Absolute Auto 800 /uL (0-900); Monocytes Percent Auto 10.2 % (3-14); Neutrophils Absolute Auto 4800 /uL (1500-7000); Neutrophils Percent Auto 59.8 % (50-75); Platelet Count 219 X10^3/uL (150-400); Red Blood Cell Count 3.65 X10^6/uL (4.5-5.9); Red Cell Distribution Width 14.7 % (11.6-14.8)
[2023-08-17 05:55] LABS: Blood Urea Nitrogen 39 mg/dL (9-20); Calcium 8.4 mg/dL (8.4-10.2); Carbon Dioxide 21 mmol/L (22-32); Chloride 112 mmol/L (98-107); Estimated Glomerular Filt Rate 22 mL/min (>60); Glucose 95 mg/dL (80-110); HEMOLYSIS < 15 (0-50); Potassium 4.5 mmol/L (3.4-5.1); Sodium 138 mmol/L (137-145)
[2023-08-17] MEDS: cefTRIAXone 1,000 MG in SODIUM CHLORIDE 0.9% 100 ML 200 MG IV (06:24)
[2023-08-17 08:00] VITALS: BP 137/49; PULSE 57; RESP 18; TEMP 36.4; O2SAT 95
[2023-08-17] MEDS: TAMSULOSIN 0.4 MG CAPSULE PO (08:21)
[2023-08-17] MEDS: OXYBUTYNIN 5 MG TABLET PO (08:21)
[2023-08-17] MEDS: HEPARIN 5,000 UNIT/ML VIAL 5000 UNIT SUBCUT (08:21)
[2023-08-17] MEDS: SODIUM CHLORIDE 0.9% FLUSH 10 ML IV (08:21)
--- NOTE | 2023-08-17 09:05 | PM.DS.1 ---
History of Present Illness History of Present Illness Date Patient Seen: 08/17/23 Time Patient Seen: 09:05 Chief complaint: uti Narrative: Per admitting provider, Sanford Mccollum is a 78-year-old male with past medical history of hypertension, hyperlipidemia, BPH follows with Dr. Chaparro urology, gout, and kidney stones who initially presented to the ED on 08/09 for dysuria and bladder spasms so was given p.o. Bactrim for UTI. Previous urine culture grew E. coli. Returns today feeling overall malaise and ongoing bladder spasms. Found to have AURA with creatinine of 5.2 with his baseline being 1.4. Found to have 500cc in bladder in ED and coffey was placed. There is now some reddish blood in the coffey bag but patient denies hematuria. He see's Dr. Chaparro for monitoring his PSA, and has an appointment with him in September. He reports normally needing to pee 5x per day but not at night. He is not on medications for his prostate. He denies CP, SOB, NV, abd pain or diarrhea. Discharge Providers Provider Date of admission: 08/14/23 08:56 Discharge Date: 08/17/23 Primary care physician: Boy Sosa MD Discharge provider: Jeferson Knight DO Summary Hospital Course Discharge Diagnosis: # AURA secondary to concurrent Bactrim and lisinopril use, in setting of ROSENBAUM # UTI, likely from chronic bladder outlet obstruction # BPH with LUTS # HTN # gout # HLD Hospital Course: This is a 78 year old male with PMH of HTN, HLD and BPH admitted with AUAR after being recently diagnosed with UTI. He had some urinary retention on admission with approx 500 cc of fluid in his bladder in the ER, and coffey catheter was placed. Urine previously had grown ballard sensitive e.coli, repeat cultures this admission showed <10K CFU of gram negative bacteria. His elevated creatinine slowly improved and was likely due to a number of causes including dehydration, urinary obstruction, UTI, along with bactrim and lisinopril use. He was given IV fluids, antibiotics were changed to ceftriaxone while here, and his home antihypertensive was held (lisinopril HCTZ) with slow improvement. He had no symptoms, and with improvement to a cr. in the 2s, he was discharged home. He was started on tamsulosin. He should follow up with urology as he was discharged with coffey catheter for further evaluation of BPH with urine obstruction. He was also ordered for outpatient labs to be done early next week to recheck his renal function. Recommend PCP follow up within 1-2 weeks to revisit home medications and possible resumption of home antihypertensives if needed. Time Spent with Patient Time spent: Greater than 30 minutes Exam Vital Signs (past 8 hours): - 08/17/23 02:00 08/17/23 08:00 Temperature 98.6 F 97.6 F Pulse Rate 70 57 L Respiratory Rate 18 18 Blood Pressure 138/76 137/49 L Pulse Oximetry 97 95 Oxygen Flow Rate 0 0 Oxygen Delivery Method Room Air Oxygen Flow Rate 0 Narrative Exam Narrative: GEN: no acute distress HEENT: moist mucous membranes, PERRL NECK: trachea midline, no JVD CV: regular rate and rhythm, no murmurs PULM: clear bilaterally ABD: soft, nontender, nondistended, no organomegaly : Coffey present with orange colored urine in bag, no blood EXT: warm and well perfused with no edema NEURO: awake, alert, oriented, no focal deficits Objective Labs 08/17/23 04:46 08/17/23 04:46 Labs: Laboratory Results - last 24 hr 08/17/23 04:46 WBC 8.0 RBC 3.65 L Hgb 12.1 L Hct 35.5 L MCV 97.1 MCH 33.2 MCHC 34.2 RDW 14.7 Plt Count 219 Neut % (Auto) 59.8 Lymph % (Auto) 22.3 L [place] % (Auto) 10.2 Eos % (Auto) 7.0 H Baso % (Auto) 0.7 Neut # (Auto) 4800 Lymph # (Auto) 1800 [place] # (Auto) 800 Eos # (Auto) 600 H Baso # (Auto) 100 Sodium 138 Potassium 4.5 Chloride 112 H Carbon Dioxide 21 L BUN 39 H Creatinine 2.79 H Estimated GFR 22 L BUN/Creatinine Ratio 14.0 Glucose 95 Calcium 8.4 [facility] Medical History Osteoarthritis (~1999) Allergies (~1949) Shoulder pain (~2018) Lumbar disc disease (~2015) Fractures (~1999) Foot pain (~2017) Chronic back pain (~2013) Carpal tunnel syndrome (~2018) Ankle pain (~2018) Mumps (~195) Measles (~1953) Chicken pox (~1948) Tinnitus Hearing loss (~1969) Cataracts, bilateral (~2017) Slow transit constipation Advanced directives, counseling/discussion Mixed hyperlipidemia Essential hypertension Feeling of incomplete bladder emptying History of kidney stones Lower urinary tract symptoms Benign prostatic hyperplasia Rising PSA level Elevated PSA (~2022) Male circumcision Gout (~2014) Surgical History (Updated 08/07/23 @ 21:08 by Kacey Sousa) Anesthesia History of cataract removal with insertion of prosthetic lens (~2019) History of carpal tunnel release (~2021) History of shoulder surgery (~2020) H/O vasectomy History of back surgery (~2015) Family History (Updated 08/07/23 @ 21:09 by Kacey Sousa) Mother COPD (chronic obstructive pulmonary disease) Brother Cancer Social History marital status: number of children: 2 household members: spouse Smoking Status: Former smoker alcohol intake: former Type(s) of exercise: walking and weight lifting frequency: 3-4 times per week Discharge Plan Discharge Plan Patient Disposition: Home Provider Discharge Comment: You were admitted to the hospital with a kidney injury, likely due to prostate obstruction (why you have a coffey now), infection, and medications. Please continue to hold lisinopril and I have changed your antibiotic. Also recommend stopping naproxen until kidney function returns to normal. I have placed a repeat lab to be drawn early next week to make sure your kidney function is continuing to improve. Discharge orders & Medications Prescriptions: New tamsulosin 0.4 mg capsule 0.4 mg PO BEDTIME 90 Days Qty: 90 0RF amoxicillin-pot clavulanate 875-125 mg tablet 1 tab PO BID 3 Days Qty: 6 0RF Continued omega 4-tqd-xxr-fish oil [Fish Oil] 1,000 mg (120 mg-180 mg) capsule 1 cap PO DAILY cholecalciferol (vitamin D3) 125 mcg (5,000 unit) capsule 125 mcg PO DAILY sea-iodine 1 cap PO DAILY rosuvastatin 20 mg tablet 20 mg PO DAILY Qty: 90 3RF allopurinol 100 mg tablet 200 mg PO DAILY Qty: 180 3RF PreserVision AREDS 4,296 mcg-226 mg-90 mg capsule 1 cap PO BID Discontinued lisinopril-hydrochlorothiazide 20-25 mg tablet 1 tab PO DAILY Qty: 90 3RF naproxen sodium 220 mg capsule 220 - 440 mg PO BID PRN (Reason: Pain (Scale Score 4-6)) Follow up/Referrals: Boy Sosa MD [Primary Care Provider] - Francois Chaparro MD [Physician] - 2 Weeks (Discharge with coffey, urinary obstruction UTI) Other Ambulatory Orders: Basic Metabolic Panel (Routine) Timeframe: 3 Days Facility: [facility] - Location: Laboratory Ordered By: Jeferson Knight Diet/Activity/Treatments Diet: Diet as Tolerated and Regular Activity: As tolerated, no restrictions Catheter: 2-way Coffey Visit Report/Discharge Packet Instructions: How to Care for Your Coffey Catheter -- Male, DI for Kidney Infection Stand Alone Forms: Patient Portal/API, Stroke Signs & Symptoms Discharge Data Primary Care Provider: Byo Sosa V
--- NOTE | 2023-08-17 10:43 | PC.NURSE ---
Day shift: Discharge instructions gone over with patient and patient's . Extensive hands on education re: Jiang cathetar care at home. Patient and were able to return demonstrate. They both stated understanding, all questions answered. PIV removed prior to d/c. All belongings with patient. PCT Logan escorted patient via wheelchair to exit.
--- NOTE | 2023-08-17 13:28 | CM.DPC ---
DCP Discharge Home Per MD, pt's labs improved and medically stable to d/c home today with coffey cath and outpt Urology f/u and no identified barriers to discharge. Per RN, discharge instructions provided and no concerns noted at this time. Spouse bedside and ready to provide transport home. JAREK Taveras
== END 2023-08-17 10:50 | disposition home or self-care (01) | DRG 683 ==
LOC: ED 08:21 → AC 10:22
PROVIDERS: Emergency Medicine; Admitting Provider Student in an Organized Health Care Education/Training Program; Emergency Provider Emergency Medicine; PCP Internal Medicine; Visit Provider Student in an Organized Health Care Education/Training Program
DX: N17.9 Acute kidney failure, unspecified (principal); N39.0 Urinary tract infection, site not specified; N32.0 Bladder-neck obstruction; N40.1 Benign prostatic hyperplasia with lower urinary tract symptoms; I10 Essential (primary) hypertension; M10.9 Gout, unspecified; E78.5 Hyperlipidemia, unspecified; T36.8X5A Adverse effect of other systemic antibiotics, initial encounter; T46.4X5A Adverse effect of angiotensin-converting-enzyme inhibitors, initial encounter; E86.0 Dehydration; Z87.891 Personal history of nicotine dependence
CPT/HCPCS: 36415; 80048; 80053; 81001; 83605; 85025; 87040; 87086; 96365; 99284; J0696; J1644

== ENCOUNTER → 2023-08-21 06:47 | Outpatient (CLI) | payer MEDICARE, SELFPAY ==
[2023-08-14 09:39] VITALS: BMI 62.1
[2023-08-21 08:27] LABS: BUN Creatinine Ratio 19.4 (6-22); Blood Urea Nitrogen 36 mg/dL (9-20); Calcium 8.7 mg/dL (8.4-10.2); Carbon Dioxide 22 mmol/L (22-32); Chloride 108 mmol/L (98-107); Estimated Glomerular Filt Rate 37 mL/min (>60); Glucose 127 mg/dL (80-110); HEMOLYSIS < 15 (0-50); Potassium 4.5 mmol/L (3.4-5.1); Sodium 138 mmol/L (137-145)
== END ==
PROVIDERS: PCP Internal Medicine; Referring Provider Internal Medicine; Visit Provider Internal Medicine
DX: N17.9 Acute kidney failure, unspecified (principal)
CPT/HCPCS: 36415; 80048

== ENCOUNTER → 2023-08-28 10:34 | Outpatient (CLI) | payer MEDICARE, SELFPAY ==
[2023-08-14 09:39] VITALS: BMI 62.1
[2023-08-28 12:01] LABS: BUN Creatinine Ratio 15.5 (6-22); Blood Urea Nitrogen 24 mg/dL (9-20); Calcium 9.2 mg/dL (8.4-10.2); Carbon Dioxide 24 mmol/L (22-32); Chloride 106 mmol/L (98-107); Estimated Glomerular Filt Rate 46 mL/min (>60); Glucose 100 mg/dL (80-110); HEMOLYSIS < 15 (0-50); Potassium 4.8 mmol/L (3.4-5.1); Sodium 137 mmol/L (137-145)
== END ==
PROVIDERS: PCP Internal Medicine; Referring Provider Internal Medicine; Visit Provider Internal Medicine
DX: I10 Essential (primary) hypertension (principal); N17.9 Acute kidney failure, unspecified
CPT/HCPCS: 36415; 80048

== ENCOUNTER → 2023-08-30 08:44 | Outpatient (CLI) | payer MEDICARE, SELFPAY ==
[2023-08-14 09:39] VITALS: BMI 62.1
== END ==
PROVIDERS: PCP Internal Medicine; Visit Provider Urology
DX: N39.0 Urinary tract infection, site not specified (principal)
CPT/HCPCS: 87086

== ENCOUNTER → 2023-09-01 09:55 | Outpatient (CLI) | payer MEDICARE, SELFPAY ==
[2023-08-14 09:39] VITALS: BMI 62.1
== END ==
LOC: LAB 09:56
PROVIDERS: PCP Internal Medicine; Referring Provider Urology; Visit Provider Urology
DX: R97.20 Elevated prostate specific antigen [PSA] (principal)
CPT/HCPCS: 36415; 84153; 84154

== ENCOUNTER → 2023-09-11 10:06 | Outpatient (CLI) | payer MEDICARE, SELFPAY ==
[2023-08-14 09:39] VITALS: BMI 62.1
== END ==
PROVIDERS: PCP Internal Medicine; Visit Provider Urology
DX: N39.0 Urinary tract infection, site not specified (principal)
CPT/HCPCS: 87077; 87086

== ENCOUNTER → 2023-09-23 10:09 | Outpatient (CLI) | payer MEDICARE, SELFPAY ==
--- NOTE | 2023-09-23 11:00 | DI.MRI.S_ITS ---
PROCEDURE: MR PELVIC PROSTATE PROTOCOL INDICATIONS: Elevated PSA TECHNIQUE: Coronal HASTE, axial T1 FSE with fat saturation, 3-plane nonbreath-hold T2 FSE. After the administration of contrast, dynamic axial, delayed axial and coronal VIBE or 2-D FLASH with fat saturation through the pelvis. Diffusion weighted imaging and ADC was performed. COMPARISON: [facility], , MR PELVIC PROSTATE PROTOCOL, 04/20/2022, 11:28. FINDINGS: Image quality: Diffusion weighted and dynamic contrast enhanced images are diagnostic. Prostate: Gland size is 6.1 x 8.8 x 6.6 cm; ellipsoid gland volume is 184 mL. PSA density of 0.10. Hypertrophy of the transition zone with encapsulated and partially encapsulated nodules. Genitourinary system: Trabeculated bladder wall. Distal ureters are non distended. Bowel and peritoneum: No pathologic free pelvic fluid. Inferior colon and small bowel loops are normal in caliber. Colonic diverticulosis without evidence of diverticulitis. Nodes and vessels: No pelvic or inguinal adenopathy by size criteria. Iliac vessels are normal in caliber. Soft tissues: Moderate left and moderate right inguinal hernias containing fat. Bones: Marrow demonstrates normal overall signal, without lesions to suggest metastases. IMPRESSION: Prostate hypertrophy. No PI-RADS 3 through 5 lesions. No pelvic lymphadenopathy by size criteria. No aggressive osseous abnormality. Dictated by: Obie Rai M.D. on 09/25/2023 at 8:33 Approved by: Obie Rai M.D. on 09/25/2023 at 8:39
== END ==
PROVIDERS: PCP Internal Medicine; Referring Provider Urology; Visit Provider Urology
DX: N40.0 Benign prostatic hyperplasia without lower urinary tract symptoms (principal); K40.20 Bilateral inguinal hernia, without obstruction or gangrene, not specified as recurrent; R97.20 Elevated prostate specific antigen [PSA]; N32.89 Other specified disorders of bladder
CPT/HCPCS: 72197; A9579

== ENCOUNTER 2023-09-28 12:01 | Emergency (ER) | payer MEDICARE, SELFPAY ==
[2023-09-28 12:14] VITALS: BP 161/76; PULSE 93; RESP 15; TEMP 36.5; O2SAT 98; BMI 26.6
[2023-09-28 12:40] LABS: Appearance Urine UA CLEAR; Bilirubin Urine UA NEGATIVE (NEGATIVE); Color Urine UA YELLOW; Glucose Urine UA NEGATIVE (Negative); Ketones Urine UA NEGATIVE (NEGATIVE); Leukocyte Esterase Urine UA 3+ (NEGATIVE); Nitrite Urine UA POSITIVE (Negative); Occult Blood Urine UA 2+ (Negative); Protein Urine UA 2+ (Negative); Specific Gravity Urine UA <=1.005 (1.000-1.035); Urobilinogen Urine UA 0.2 E.U./dL (0.2)
[2023-09-28 12:48] LABS: Bacteria Urine Many (>30); Culture Indicated Urine Specimen Cultured; RBC Urine 5-10/HPF (0-5/HPF); Squamous Epithelial Cell Urine 0-1 /HPF (0-5/HPF); Urine Volume 10mL (spun); WBC Urine 30-100/HPF (0-5/HPF)
--- NOTE | 2023-09-28 13:05 | ED.MALEGU ---
HPI - Male Genitourinary <Burke RoperSANDRA shaw - Last Filed: 09/28/23 13:18> General Chief complaint: Urogenital-Male Stated complaint: states white cells in urine Time Seen by Provider: 09/28/23 12:46 Source: patient Mode of arrival: Ambulatory History of Present Illness HPI Narrative: 78-year-old male, with history of frequent UTIs, presents to the emergency department with 2 day history of urinary urgency and cloudy urine. Patient has been treated twice over the last couple of months for UTIs and completed his last antibiotic regimen of cephalexin on Monday. Patient noticed the 2 days later he started to cloudy urine and urinary urgency. Patient denies any retention of urine or inability to empty his bladder. Patient is scheduled for a aqua ablation in the coming weeks. Related Data Home Medications Medication Instructions Recorded Confirmed vitamins A,C,O-tjam-jqezin 4,296 1 cap PO BID 04/12/22 09/15/23 mcg-226 mg-90 mg capsule (PreserVision AREDS) cholecalciferol (vitamin D3) 125 125 mcg PO DAILY 07/25/23 09/15/23 mcg (5,000 unit) capsule omega 4-czj-ghj-fish oil 1,000 mg 1 cap PO DAILY 07/25/23 09/15/23 (120 mg-180 mg) capsule (Fish Oil) sea-iodine 1 cap PO DAILY 07/25/23 09/15/23 Previous Rx's Medication Instructions Recorded allopurinol 100 mg tablet 200 mg (2 x 100 mg) PO DAILY #180 07/25/23 tabs rosuvastatin 20 mg tablet 20 mg PO DAILY #90 tabs 07/25/23 tamsulosin 0.4 mg capsule 0.4 mg PO BEDTIME 90 days #90 caps 08/17/23 amlodipine 5 mg tablet 5 mg PO DAILY #90 tabs 08/28/23 ciprofloxacin HCl 500 mg tablet 500 mg PO BID #7 tabs 09/11/23 cephalexin 500 mg capsule 500 mg PO BID #20 caps 09/14/23 nitrofurantoin 100 mg PO Q12H UTI 7 days #14 caps 09/28/23 monohydrate/macrocrystals 100 mg capsule (Macrobid) Allergies Allergy/AdvReac Type Severity Reaction Status Date / Time oxycodone [From PERCOCET] Allergy Severe RASH Verified 09/28/23 12:14 sulfamethoxazole AdvReac Intermediate Verified 09/28/23 12:14 [From Bactrim] trimethoprim [From Bactrim] AdvReac Intermediate Verified 09/28/23 12:14 Review of Systems <SANDRA Chan - Last Filed: 09/28/23 13:18> Review of Systems Narrative: Narrative: See HPI. GENERAL: Denies chills, fatigue, fever, sweats. RESPIRATORY: Denies dyspnea, cough, wheezing, sputum. CARDIOVASCULAR: Denies chest pain, palpitations, edema. GASTROINTESTINAL: Denies nausea, vomiting, abdominal pain, diarrhea, constipation. : Denies dysuria, frequency, incontinence, hematuria, urinary retention, flank pain. Endorses cloudy urine and urinary urgency. MSK: Denies weakness, joint pain, or bony pain. SKIN: Denies rash, skin lesions, or pruritis. NEUROLOGIC: Denies weakness, dizziness, headache, numbness, confusion. Patient History <SANDRA Chan - Last Filed: 09/28/23 13:18> Medical History Osteoarthritis (~2000) Lumbar disc disease (~2015) Fractures (~1999) Foot pain (~2018) Chronic back pain (~2013) Carpal tunnel syndrome (~2017) Ankle pain (~2017) Mumps (~1953) Measles (~1953) Chicken pox (~1948) Tinnitus Hearing loss (~1970) Cataracts, bilateral (~2018) Slow transit constipation Mixed hyperlipidemia Essential hypertension Feeling of incomplete bladder emptying History of kidney stones Lower urinary tract symptoms Benign prostatic hyperplasia Rising PSA level Elevated PSA (~2022) Male circumcision Gout (~2014) Surgical History Anesthesia History of cataract removal with insertion of prosthetic lens (~2019) History of carpal tunnel release (~2021) History of shoulder surgery (~2020) H/O vasectomy History of back surgery (~2015) Family History Mother COPD (chronic obstructive pulmonary disease) Brother Cancer Social History marital status: number of children: 2 household members: spouse Smoking Status: Former smoker alcohol intake: former Type(s) of exercise: walking and weight lifting frequency: 3-4 times per week Smoking Status: Former smoker alcohol intake frequency: holidays/special occasions only Substance Use Type: does not use Exam <SANDRA Chan - Last Filed: 09/28/23 13:18> Narrative Exam Narrative: Exam Narrative: GENERAL: This is a well-nourished, well-developed patient, in no acute distress. HEAD: Atraumatic. Normocephalic. CARDIOVASCULAR: Regular rate and rhythm without murmurs, peripheral pulses intact, cap refill <2 sec. RESPIRATORY: Breath sounds equal and clear bilaterally. No wheezes, rales, or rhonchi. No cough. No increased respiratory effort. No accessory muscle use. GASTROINTESTINAL: Abdomen soft, non-tender, nondistended without guarding or rebound. No suprapubic pain. No CVA tenderness. NEURO: A&O x 3. SKIN: Warm, dry, no rashes or lesions noted. Initial Vital Signs Initial Vital Signs: Vital Signs Temperature 97.7 F 09/28/23 12:14 Pulse Rate 93 H 09/28/23 12:14 Respiratory Rate 15 09/28/23 12:14 Blood Pressure 161/76 H 09/28/23 12:14 Pulse Oximetry 98 09/28/23 12:14 Oxygen Delivery Method Room Air 09/28/23 12:14 Reviewed <Nerissa Capps DO - Last Filed: 09/30/23 07:21> Initial Vital Signs Initial Vital Signs: Vital Signs Temperature 97.7 F 09/28/23 12:14 Pulse Rate 93 H 09/28/23 12:14 Respiratory Rate 15 09/28/23 12:14 Blood Pressure 161/76 H 09/28/23 12:14 Pulse Oximetry 98 09/28/23 12:14 Oxygen Delivery Method Room Air 09/28/23 12:14 Course <SANDRA Chan - Last Filed: 09/28/23 13:18> Orders Ordered: ED Orders 09/28/23 12:17 Urinalysis and Microscopic Stat Urine Culture Stat Vital Signs Vital signs: Vital Signs - 8 hr 09/28/23 12:14 Temperature 97.7 F Pulse Rate 93 H Respiratory Rate 15 Blood Pressure 161/76 H Pulse Oximetry 98 Oxygen Delivery Method Room Air <Nerissa Ramirez CharleseitanDO - Last Filed: 09/30/23 07:21> Orders Ordered: ED Orders 09/28/23 12:17 Urinalysis and Microscopic Stat Urine Culture Stat Vital Signs Vital signs: Vital Signs - 8 hr 09/28/23 12:14 Temperature 97.7 F Pulse Rate 93 H Respiratory Rate 15 Blood Pressure 161/76 H Pulse Oximetry 98 Oxygen Delivery Method Room Air MDM - Male Genitourinary <SANDRA Chan - Last Filed: 09/28/23 13:18> Differential Diagnosis Differential diagnosis: Likely urinary tract infection and acute retention of urine Lab Data Labs: Lab Results 09/28/23 Range/Units 12:17 Urine Color Yellow Urine Appearance Clear Urine pH 6.0 (4.5-8.0) Ur Specific [place] <=1.005 (1.000-1.035) Urine Protein 2+ H (Negative) Urine Glucose (UA) Negative (Negative) g/dL Urine Ketones Negative (NEGATIVE) Urine Occult Blood 2+ H (Negative) Urine Nitrate Positive H (Negative) Urine Bilirubin Negative (NEGATIVE) Urine Urobilinogen 0.2 (0.2) E.U./dL Ur Leukocyte Esterase 3+ H (NEGATIVE) Urine RBC 5-10/hpf H (0-5/HPF) Urine WBC 30-100/hpf H (0-5/HPF) Ur Squamous Epith Cells 0-1 /hpf (0-5/HPF) Urine Bacteria Many (>30) H (None) Ur Culture Indicated? Specimen cultured Vol Urine Centrifuged 10ml (spun) MDM Narrative Medical decision making narrative: 78-year-old male with UTI like symptoms. Assessment was encouraging and point of care urine dip was consistent with UTI, positive blood, leuks and nitrates. Patient is not experiencing any urinary retention or difficulty urinating, and will therefore begin antibiotic therapy immediately. Informed patient that we would send off a urine sample for culture and contact him with the results if it required a change in antibiotics. Patient will follow up with his family doctor and his urinary specialist as previously scheduled. <Nerissa C DO Jefry - Last Filed: 09/30/23 07:21> Lab Data Labs: Lab Results 09/28/23 Range/Units 12:17 Urine Color Yellow Urine Appearance Clear Urine pH 6.0 (4.5-8.0) Ur Specific [place] <=1.005 (1.000-1.035) Urine Protein 2+ H (Negative) Urine Glucose (UA) Negative (Negative) g/dL Urine Ketones Negative (NEGATIVE) Urine Occult Blood 2+ H (Negative) Urine Nitrate Positive H (Negative) Urine Bilirubin Negative (NEGATIVE) Urine Urobilinogen 0.2 (0.2) E.U./dL Ur Leukocyte Esterase 3+ H (NEGATIVE) Urine RBC 5-10/hpf H (0-5/HPF) Urine WBC 30-100/hpf H (0-5/HPF) Ur Squamous Epith Cells 0-1 /hpf (0-5/HPF) Urine Bacteria Many (>30) H (None) Ur Culture Indicated? Specimen cultured Vol Urine Centrifuged 10ml (spun) Discharge Plan Departure Patient Disposition: Home Clinical Impression: Urinary tract infection Qualifiers: Urinary tract infection type: acute cystitis Hematuria presence: with hematuria Qualified Code(s): N30.01 - Acute cystitis with hematuria Instructions: DI for Urinary Tract Infection (UTI) Activity Restrictions/Additional Instructions: *You have been diagnosed with a urinary tract infection. My assessment was encouraging and your urine sample was consistent with urinary tract infection. After reviewing your previous urine cultures, we will treat you with Macrobid for 7 days. Please follow-up with your family doctor and urinary specialist as previously scheduled. *What to do: *Please continue to take your regular medications as directed. [ x] New medication prescriptions sent to your pharmacy: [[facility]] [ ] New medication written as a paper prescription [ ] No new medications given *Please follow up with your primary care provider in 2-3 days, call for an appointment. Let them know you were seen in the Emergency Department and that we ask that you be seen in follow up. We will electronically transmit a record of today's note if your PCP is in our system *If you do not have a primary care provider please contact the [facility] Resource line at [phone]. They will ask some questions about your medical history and help get you set up with a doctor in the community. ? Return to ER if you should have any new, worsening or concerning symptoms, such as worsening pain, severe headache, confusion, chest pain, difficulty breathing, fever greater than 101 F, shaking chills, persistent vomiting to the point that you cannot drink fluids, or other new or worsening symptoms. Prescriptions: New nitrofurantoin monohyd/m-cryst [Macrobid] 100 mg capsule 100 mg PO Q12H 7 Days Qty: 14 0RF Rx Instructions: must administer with a meal/food No Action ciprofloxacin HCl 500 mg tablet 500 mg PO BID Qty: 7 0RF cephalexin 500 mg capsule 500 mg PO BID Qty: 20 0RF omega 5-mfi-qke-fish oil [Fish Oil] 1,000 mg (120 mg-180 mg) capsule 1 cap PO DAILY cholecalciferol (vitamin D3) 125 mcg (5,000 unit) capsule 125 mcg PO DAILY sea-iodine 1 cap PO DAILY rosuvastatin 20 mg tablet 20 mg PO DAILY Qty: 90 3RF allopurinol 100 mg tablet 200 mg PO DAILY Qty: 180 3RF amlodipine 5 mg tablet 5 mg PO DAILY Qty: 90 3RF tamsulosin 0.4 mg capsule 0.4 mg PO BEDTIME 90 Days Qty: 90 0RF PreserVision AREDS 4,296 mcg-226 mg-90 mg capsule 1 cap PO BID Referrals: Boy Sosa MD [Primary Care Provider] - Stand Alone Forms: Patient Portal/API ED Sign-out <Nerissa Capps DO - Last Filed: 09/30/23 07:21> Cosign ED Attending Cosagnesature Attestation: I was immediately available in the department for consultation.
[2023-09-28 13:27] VITALS: BP 162/79; PULSE 78; RESP 14; O2SAT 96
== END 2023-09-28 13:29 | disposition home or self-care (01) ==
PROVIDERS: Emergency Medicine; Emergency Provider Registered Nurse; PCP Internal Medicine
DX: N30.01 Acute cystitis with hematuria (principal)
CPT/HCPCS: 81001; 87077; 87086; 87186; 99281; 99282

== ENCOUNTER 2023-10-07 08:17 | Emergency (ER) | payer MEDICARE, SELFPAY ==
[2023-10-07 08:29] VITALS: BP 181/79; PULSE 80; O2SAT 98
[2023-10-07 08:30] VITALS: PULSE 74; O2SAT 98
[2023-10-07 08:33] VITALS: BP 181/79; PULSE 80; RESP 17; TEMP 36.6; O2SAT 98; BMI 25.8
--- NOTE | 2023-10-07 08:50 | ED.GENADULT ---
HPI - General Adult General Chief complaint: Urogenital-Male Stated complaint: Possible UTI Time Seen by Provider: 10/07/23 08:30 Source: patient Mode of arrival: Ambulatory History of Present Illness HPI narrative: Patient is a 78-year-old male. Has a history of recurrent urinary tract infections. Over the past several weeks he has been treated with Cipro, Keflex and Macrobid. His most recent antibiotic was Macrobid. He stopped taking this antibiotic just several days ago. He states that every time he takes these antibiotics his symptoms improve/resolve and then within about 24-48 hours afterwards his symptoms returned. He states he was not having any change in urinary frequency although he does go to the bathroom often. He states that the urine is cloudy and has a foul smell. No fevers. No vomiting. No back pain. No pain with urination. He states he feels like he is emptying his bladder he just urinates very often. He was under the care of urology. He is scheduled to have an Aquacel ablation for BPH. Related Data Home Medications Medication Instructions Recorded Confirmed vitamins A,C,V-baic-yqrooy 4,296 1 cap PO BID 04/12/22 09/15/23 mcg-226 mg-90 mg capsule (PreserVision AREDS) cholecalciferol (vitamin D3) 125 125 mcg PO DAILY 07/25/23 09/15/23 mcg (5,000 unit) capsule omega 3-zde-zqz-fish oil 1,000 mg 1 cap PO DAILY 07/25/23 09/15/23 (120 mg-180 mg) capsule (Fish Oil) sea-iodine 1 cap PO DAILY 07/25/23 09/15/23 Previous Rx's Medication Instructions Recorded allopurinol 100 mg tablet 200 mg (2 x 100 mg) PO DAILY #180 07/25/23 tabs rosuvastatin 20 mg tablet 20 mg PO DAILY #90 tabs 07/25/23 tamsulosin 0.4 mg capsule 0.4 mg PO BEDTIME 90 days #90 caps 08/17/23 amlodipine 5 mg tablet 5 mg PO DAILY #90 tabs 08/28/23 ciprofloxacin HCl 500 mg tablet 500 mg PO BID #7 tabs 09/11/23 cephalexin 500 mg capsule 500 mg PO BID #20 caps 09/14/23 peg 3350-sod sulf,bdsey-xjj-gld 1,000 ml PO DIRECTED #2,000 mL 10/02/23 178.7-7.3-0.5-1.12-0.9 gram oral soln (Suflave) nitrofurantoin See Rx Instructions .Route 10/07/23 monohydrate/macrocrystals 100 mg .COMPLEX #30 caps capsule (Macrobid) Allergies Allergy/AdvReac Type Severity Reaction Status Date / Time oxycodone [From PERCOCET] Allergy Severe RASH Verified 09/28/23 12:14 sulfamethoxazole AdvReac Intermediate Verified 09/28/23 12:14 [From Bactrim] trimethoprim [From Bactrim] AdvReac Intermediate Verified 09/28/23 12:14 Review of Systems Review of Systems Narrative: See HPI Patient History Medical History Osteoarthritis (~1999) Lumbar disc disease (~2015) Fractures (~1999) Foot pain (~2017) Chronic back pain (~2013) Carpal tunnel syndrome (~2017) Ankle pain (~2017) Mumps (~1953) Measles (~1953) Chicken pox (~1948) Tinnitus Hearing loss (~1969) Cataracts, bilateral (~2017) Slow transit constipation Mixed hyperlipidemia Essential hypertension Feeling of incomplete bladder emptying History of kidney stones Lower urinary tract symptoms Benign prostatic hyperplasia Rising PSA level Elevated PSA (~2022) Male circumcision Gout (~2014) Surgical History Anesthesia History of cataract removal with insertion of prosthetic lens (~2019) History of carpal tunnel release (~2021) History of shoulder surgery (~2020) H/O vasectomy History of back surgery (~2015) Family History Mother COPD (chronic obstructive pulmonary disease) Brother Cancer Social History marital status: number of children: 2 household members: spouse Smoking Status: Former smoker alcohol intake: former Type(s) of exercise: walking and weight lifting frequency: 3-4 times per week Smoking Status: Former smoker alcohol intake frequency: holidays/special occasions only Substance Use Type: does not use Exam Initial Vital Signs Initial Vital Signs: Vital Signs Temperature 97.9 F 10/07/23 08:33 Pulse Rate 80 10/07/23 08:33 Respiratory Rate 17 10/07/23 08:33 Blood Pressure 181/79 H 10/07/23 08:33 Pulse Oximetry 98 10/07/23 08:33 Oxygen Delivery Method Room Air 10/07/23 08:33 Const General: cooperative and comfortable Resp Effort & Inspection: normal respiratory effort Cardio Rate: regular rate GI Inspection: normal to inspection Course Orders Ordered: ED Orders 10/07/23 08:43 Urine Microscopic Stat 10/07/23 08:49 Urine Culture Stat Vital Signs Vital signs: Vital Signs - 8 hr 10/07/23 08:33 Temperature 97.9 F Pulse Rate 80 Respiratory Rate 17 Blood Pressure 181/79 H Pulse Oximetry 98 Oxygen Delivery Method Room Air Medical Decision Making Medical Records Medical records reviewed: Yes I reviewed the patient's medical records. Lab Data Lab results reviewed: Yes I reviewed the patient's lab results. Labs: Urine Dip Bedside Urine Glucose Negative Bedside Urine Bilirubin - Negative Bedside Urine Ketone - Negative Urine Specific [place] 1.015 Bedside Urine Occult Blood ++ Bedside Urine pH 6.0 Bedside Urine Protein + 30 Bedside Urine Urobilinogen - Negative Bedside Urine Nitrite + Positive Bedside Urine Leukocytes +++ 500 Esterase Point of care testing: Urine Dip Bedside Urine Glucose Negative Bedside Urine Bilirubin - Negative Bedside Urine Ketone - Negative Urine Specific [place] 1.015 Bedside Urine Occult Blood ++ Bedside Urine pH 6.0 Bedside Urine Protein + 30 Bedside Urine Urobilinogen - Negative Bedside Urine Nitrite + Positive Bedside Urine Leukocytes +++ 500 Esterase MDM Narrative Medical decision making narrative: Review of his medical record shows that prior urine cultures have been E coli that have been indeterminate against ciprofloxacin and levofloxacin otherwise is pansensitive. It appears that the antibiotics that he was taken in the past have helped. More recent has been Macrobid which is not unreasonable given his prior cultures. His urinalysis today is nitrite positive. I suspect that this is once again E coli. As tolerated the Macrobid well. Plan will be to treat with a course of Macrobid for 5 days and then afterwards put him on a prophylactic dose of Macrobid at 1 pill 1 time at night. He was given these instructions. There was another urine culture pending at the time of discharge today. Advised that he contact his urologist and his primary doctor for follow-up. He was given return precautions. He expressed understanding and agreement. Discharge Plan Departure Patient Disposition: Home Clinical Impression: Acute UTI Instructions: DI for Urinary Tract Infection (UTI) Activity Restrictions/Additional Instructions: That does appear that you have another urinary tract infection today. We are going to treat you with a course of antibiotics but then after that put you on a prophylactic dose of antibiotics. Please take it as directed. Contact your urologist and also your primary doctor for a follow-up. Return to the emergency department for new or worsening symptoms Prescriptions: New nitrofurantoin monohyd/m-cryst [Macrobid] 100 mg capsule See Rx Instructions .ROUTE .COMPLEX Qty: 30 0RF Rx Instructions: 1T PO BID for 5D then 1T PO QD after that at bedtime No Action ciprofloxacin HCl 500 mg tablet 500 mg PO BID Qty: 7 0RF cephalexin 500 mg capsule 500 mg PO BID Qty: 20 0RF Suflave 178.7-7.3-0.5 gram recon soln 1,000 ml PO DIRECTED Qty: 2000 0RF Rx Instructions: take as directed by Physician omega 5-cic-muw-fish oil [Fish Oil] 1,000 mg (120 mg-180 mg) capsule 1 cap PO DAILY cholecalciferol (vitamin D3) 125 mcg (5,000 unit) capsule 125 mcg PO DAILY sea-iodine 1 cap PO DAILY rosuvastatin 20 mg tablet 20 mg PO DAILY Qty: 90 3RF allopurinol 100 mg tablet 200 mg PO DAILY Qty: 180 3RF amlodipine 5 mg tablet 5 mg PO DAILY Qty: 90 3RF tamsulosin 0.4 mg capsule 0.4 mg PO BEDTIME 90 Days Qty: 90 0RF PreserVision AREDS 4,296 mcg-226 mg-90 mg capsule 1 cap PO BID Referrals: Boy Sosa MD [Primary Care Provider] - Stand Alone Forms: Patient Portal/API
[2023-10-07 09:03] VITALS: BP 132/61
[2023-10-07 11:04] LABS: Urine Volume 10mL (spun)
[2023-10-07 11:09] LABS: Bacteria Urine Many (>30); Culture Indicated Urine Cult Not Indicated; RBC Urine 0-1/HPF (0-5/HPF); Squamous Epithelial Cell Urine None Seen (0-5/HPF); WBC Urine >100/HPF (0-5/HPF)
== END 2023-10-07 09:07 | disposition home or self-care (01) ==
PROVIDERS: Emergency Provider Emergency Medicine; PCP Internal Medicine
DX: N39.0 Urinary tract infection, site not specified (principal)
CPT/HCPCS: 81003; 81015; 87077; 87086; 87186; 99282

== ENCOUNTER → 2023-10-12 10:02 | Outpatient (CLI) | payer MEDICARE, SELFPAY ==
[2023-10-12 11:34] LABS: HEMOLYSIS < 15 (0-50)
[2023-10-12 11:39] LABS: BUN Creatinine Ratio 13.4 (6-22); Blood Urea Nitrogen 18 mg/dL (9-20); Calcium 9.7 mg/dL (8.4-10.2); Carbon Dioxide 24 mmol/L (22-32); Chloride 107 mmol/L (98-107); Estimated Glomerular Filt Rate 54 mL/min (>60); Glucose 104 mg/dL (80-110); Potassium 4.7 mmol/L (3.4-5.1); Sodium 142 mmol/L (137-145)
== END ==
PROVIDERS: PCP Internal Medicine; Referring Provider Internal Medicine; Visit Provider Internal Medicine
DX: N41.1 Chronic prostatitis (principal); N18.31 Chronic kidney disease, stage 3a
CPT/HCPCS: 36415; 80048; 84153

== ENCOUNTER 2023-11-09 07:30 | Emergency (ER) | payer MEDICARE, SELFPAY ==
[2023-11-09 07:36] VITALS: PULSE 72; O2SAT 99
[2023-11-09 07:37] VITALS: BP 159/77; PULSE 72; O2SAT 99
[2023-11-09 07:40] VITALS: BP 159/77; PULSE 67; RESP 19; TEMP 36.6; O2SAT 99; BMI 25.8
[2023-11-09 07:53] LABS: Appearance Urine UA CLOUDY; Bilirubin Urine UA NEGATIVE (NEGATIVE); Color Urine UA YELLOW; Glucose Urine UA NEGATIVE (Negative); Ketones Urine UA NEGATIVE (NEGATIVE); Leukocyte Esterase Urine UA 2+ (NEGATIVE); Nitrite Urine UA POSITIVE (Negative); Occult Blood Urine UA 1+ (Negative); Protein Urine UA 2+ (Negative); Specific Gravity Urine UA 1.015 (1.000-1.035); Urobilinogen Urine UA 0.2 E.U./dL (0.2)
--- NOTE | 2023-11-09 08:05 | PC.NURSE ---
Pt endorses urinary frequency and cloudiness with odor. He denies pain, nausea, burning. States he is awaiting aquablation surgery on his prostate and has been on antibiotics due to frequent reoccurring UTI with e. coli.
--- NOTE | 2023-11-09 08:07 | ED_ITS ---
HPI - Male Genitourinary General Chief complaint: Urogenital-Male Stated complaint: UTI Time Seen by Provider: 11/09/23 07:43 History of Present Illness HPI Narrative: Patient is a 70-year-old male history of recurrent UTIs. Has previously been treated with Cipro Keflex and Macrobid. Concerned that he might have a UTI again today. 3 previous cultures from August and September show E coli consistently in sensitive to fluoroquinolones. Patient was seen and evaluated October 06 diagnosed with UTI placed on Macrobid twice a day for 5 days and then once daily. Patient says that he finished his antibiotics 3 days ago and has since started having cloudy foul-smelling urine with burning sensation consistent with his previous UTIs. He is followed by Urology Dr. Chaparro. He has been trying to get a hold of him but unable to talk to anyone at the office. He denies any back pain abdominal pain nausea vomiting or fever. He is waiting for procedure Aquablation but Medicare has not yet approved. Related Data Home Medications Medication Instructions Recorded Confirmed vitamins A,C,M-artd-onecsn 4,296 1 cap PO BID 04/12/22 10/12/23 mcg-226 mg-90 mg capsule (PreserVision AREDS) cholecalciferol (vitamin D3) 125 125 mcg PO DAILY 07/25/23 10/12/23 mcg (5,000 unit) capsule omega 0-ink-aov-fish oil 1,000 mg 1 cap PO DAILY 07/25/23 10/12/23 (120 mg-180 mg) capsule (Fish Oil) sea-iodine 1 cap PO DAILY 07/25/23 10/12/23 Previous Rx's Medication Instructions Recorded allopurinol 100 mg tablet 200 mg (2 x 100 mg) PO DAILY #180 07/25/23 tabs rosuvastatin 20 mg tablet 20 mg PO DAILY #90 tabs 07/25/23 tamsulosin 0.4 mg capsule 0.4 mg PO BEDTIME 90 days #90 caps 08/17/23 amlodipine 5 mg tablet 5 mg PO DAILY #90 tabs 08/28/23 peg 3350-sod sulf,vamqh-cdj-hbn 1,000 ml PO DIRECTED #2,000 mL 10/02/23 178.7-7.3-0.5-1.12-0.9 gram oral soln (Suflave) nitrofurantoin See Rx Instructions .Route 10/07/23 monohydrate/macrocrystals 100 mg .COMPLEX #30 caps capsule (Macrobid) nitrofurantoin 100 mg PO Q12H #30 caps 11/09/23 monohydrate/macrocrystals 100 mg capsule (Macrobid) Allergies Allergy/AdvReac Type Severity Reaction Status Date / Time oxycodone [From PERCOCET] Allergy Severe RASH Verified 10/12/23 09:25 sulfamethoxazole AdvReac Intermediate Verified 10/12/23 09:25 [From Bactrim] trimethoprim [From Bactrim] AdvReac Intermediate Verified 10/12/23 09:25 Patient History Medical History CKD stage 3a, GFR 45-59 ml/min Chronic prostatitis Osteoarthritis (~1999) Lumbar disc disease (~2015) Fractures (~1999) Foot pain (~2017) Chronic back pain (~2013) Carpal tunnel syndrome (~2017) Mumps (~1953) Measles (~1953) Chicken pox (~1948) Tinnitus Hearing loss (~1969) Cataracts, bilateral (~2017) Slow transit constipation Mixed hyperlipidemia Essential hypertension Feeling of incomplete bladder emptying History of kidney stones Lower urinary tract symptoms Benign prostatic hyperplasia Elevated PSA (~2022) Male circumcision Gout (~2014) Surgical History Anesthesia History of cataract removal with insertion of prosthetic lens (~2019) History of carpal tunnel release (~2021) History of shoulder surgery (~2020) H/O vasectomy History of back surgery (~2015) Family History Mother COPD (chronic obstructive pulmonary disease) Brother Cancer Social History marital status: number of children: 2 household members: spouse Smoking Status: Former smoker alcohol intake: former Type(s) of exercise: walking and weight lifting frequency: 3-4 times per week Smoking Status: Former smoker alcohol intake frequency: holidays/special occasions only Substance Use Type: does not use Exam Initial Vital Signs Initial Vital Signs: Vital Signs Pulse Rate 72 11/09/23 07:36 Pulse Oximetry 99 09/12/24 07:36 GENERAL: Nontoxic well-appearing 70 year CARDIOVASCULAR: peripheral pulses in tact, cap refill <2 sec RESPIRATORY: No respiratory distress, speaks in full sentences without difficulty ABDOMEN: Soft, nontender, no guarding or rebound : No CVA tenderness EXTREMITIES: Normal range of motion, no clubbing or edema. Neurovascularly intact NEUROLOGICAL: Cranial nerves II through XII grossly intact. Normal gait and speech. SKIN: Warm, dry, no petechiae, no rashes or lesions. Course Orders Ordered: ED Orders 11/09/23 07:40 UA Complete [Urinalysis and Microscopic] Stat Urine Culture Stat Vital Signs Vital signs: Vital Signs - 8 hr 11/09/23 07:36 11/09/23 07:37 11/09/23 07:37 Temperature Pulse Rate 72 72 Respiratory Rate Blood Pressure 159/77 H Pulse Oximetry 99 99 Oxygen Delivery Method Room Air 11/09/23 07:40 Temperature 97.9 F Pulse Rate 67 Respiratory Rate 19 Blood Pressure 159/77 H Pulse Oximetry 99 Oxygen Delivery Method Room Air MDM - Male Genitourinary Lab Data Labs: Lab Results 11/09/23 Range/Units 07:40 Urine Color Yellow Urine Appearance Cloudy Urine pH 6.0 (4.5-8.0) Ur Specific [place] 1.015 (1.000-1.035) Urine Protein 2+ H (Negative) Urine Glucose (UA) Negative (Negative) g/dL Urine Ketones Negative (NEGATIVE) Urine Occult Blood 1+ H (Negative) Urine Nitrate Positive H (Negative) Urine Bilirubin Negative (NEGATIVE) Urine Urobilinogen 0.2 (0.2) E.U./dL Ur Leukocyte Esterase 2+ H (NEGATIVE) Urine RBC 0-1/hpf (0-5/HPF) Urine WBC >100/hpf H (0-5/HPF) Ur Squamous Epith Cells None seen (0-5/HPF) Urine Bacteria Many (>30) H (None) Ur Culture Indicated? Specimen cultured Vol Urine Centrifuged 10ml (spun) [facility] Narrative Medical decision making narrative: Patient is 78 old male with frequent recurrent UTIs. Was previously on preventative Macrobid which was helping until 3 days ago. He is afebrile has no flank pain confusion or abdominal pain. Waiting for referral. He overall appears well nontoxic exam is benign we will start him on Macrobid as previously prescribed Discharge Plan Departure Patient Disposition: Home Clinical Impression: Urinary tract infection Instructions: DI for Urinary Tract Infection (UTI) Activity Restrictions/Additional Instructions: *You have been diagnosed with UTI *What to do: Please do your best and continue to try and get in with Dr. Chaparro *Continue to take medications as directed Macrobid 100 mg twice a day for 5 days then take once daily *Follow up with your primary care provider in 2-3 days or call [phone] *Return to ER if you should have confusion back pain vomiting fever abdominal pain inability to urinate or any new, worsening or concerning symptoms Prescriptions: New nitrofurantoin monohyd/m-cryst [Macrobid] 100 mg capsule 100 mg PO Q12H Qty: 30 0RF Rx Instructions: 1 tablet twice a day for 5 days then 1 tablet at bedtime No Action Suflave 178.7-7.3-0.5 gram recon soln 1,000 ml PO DIRECTED Qty: 2000 0RF Rx Instructions: take as directed by Physician omega 5-vln-emk-fish oil [Fish Oil] 1,000 mg (120 mg-180 mg) capsule 1 cap PO DAILY cholecalciferol (vitamin D3) 125 mcg (5,000 unit) capsule 125 mcg PO DAILY sea-iodine 1 cap PO DAILY rosuvastatin 20 mg tablet 20 mg PO DAILY Qty: 90 3RF allopurinol 100 mg tablet 200 mg PO DAILY Qty: 180 3RF amlodipine 5 mg tablet 5 mg PO DAILY Qty: 90 3RF tamsulosin 0.4 mg capsule 0.4 mg PO BEDTIME 90 Days Qty: 90 0RF nitrofurantoin monohyd/m-cryst [Macrobid] 100 mg capsule See Rx Instructions .ROUTE .COMPLEX Qty: 30 0RF Rx Instructions: 1T PO BID for 5D then 1T PO QD after that at bedtime PreserVision AREDS 4,296 mcg-226 mg-90 mg capsule 1 cap PO BID Referrals: Boy Sosa MD [Primary Care Provider] - Stand Alone Forms: Patient Portal/API
[2023-11-09 08:28] LABS: Bacteria Urine Many (>30); Culture Indicated Urine Specimen Cultured; RBC Urine 0-1/HPF (0-5/HPF); Squamous Epithelial Cell Urine None Seen (0-5/HPF); Urine Volume 10mL (spun); WBC Urine >100/HPF (0-5/HPF)
[2023-11-09 08:37] VITALS: BP 146/73; PULSE 65; RESP 16; O2SAT 95
== END 2023-11-09 08:37 | disposition home or self-care (01) ==
PROVIDERS: Emergency Provider Emergency Medicine; PCP Internal Medicine
DX: N39.0 Urinary tract infection, site not specified (principal)
CPT/HCPCS: 81001; 87077; 87086; 87186; 99282

== ENCOUNTER → 2023-11-14 14:24 | Outpatient (CLI) | payer MEDICARE, SELFPAY | PROVIDERS: PCP Internal Medicine; Visit Provider Urology | DX: N39.0 Urinary tract infection, site not specified (principal); R39.9 Unspecified symptoms and signs involving the genitourinary system | CPT/HCPCS: 36415; 84153; 84154; 87086 ==

== ENCOUNTER 2023-12-05 07:47 | Emergency (ER) | payer MEDICARE, SELFPAY ==
[2023-12-05 08:03] VITALS: BP 148/68; PULSE 61; RESP 16; TEMP 36.6; O2SAT 98; BMI 26.6
--- NOTE | 2023-12-05 08:06 | PC.NURSE ---
Recently finished Macrobid; states urine is again cloudy. Pt states he has no pain. Pt denies fever.
--- NOTE | 2023-12-05 08:15 | ED.MALEGU ---
HPI - Male Genitourinary General Chief complaint: Urogenital-Male Stated complaint: poss uti Time Seen by Provider: 12/05/23 07:59 History of Present Illness HPI Narrative: 78-year-old male with history of chronic prostatitis followed by local urologist Dr. Chaparro, recently completed long course of Macrobid oral antibiotic for multiple weeks, last dose day before yesterday 12/02/1993, now with dysuria and frequency of urination. No back or flank area discomfort. No other areas of discomfort. No grossly bloody urine. No fevers or chills. No rigors or shaking. Related Data Home Medications Medication Instructions Recorded Confirmed vitamins A,C,G-erld-ushyub 4,296 1 cap PO BID 04/12/22 11/15/23 mcg-226 mg-90 mg capsule (PreserVision AREDS) cholecalciferol (vitamin D3) 125 125 mcg PO DAILY 07/25/23 11/15/23 mcg (5,000 unit) capsule omega 0-zel-qft-fish oil 1,000 mg 1 cap PO DAILY 07/25/23 11/15/23 (120 mg-180 mg) capsule (Fish Oil) sea-iodine 1 cap PO DAILY 07/25/23 11/15/23 Previous Rx's Medication Instructions Recorded allopurinol 100 mg tablet 200 mg (2 x 100 mg) PO DAILY #180 07/25/23 tabs rosuvastatin 20 mg tablet 20 mg PO DAILY #90 tabs 07/25/23 amlodipine 5 mg tablet 5 mg PO DAILY #90 tabs 08/28/23 peg 3350-sod sulf,bnyxj-esi-kap 1,000 ml PO DIRECTED #2,000 mL 10/02/23 178.7-7.3-0.5-1.12-0.9 gram oral soln (Suflave) nitrofurantoin See Rx Instructions .Route 10/07/23 monohydrate/macrocrystals 100 mg .COMPLEX #30 caps capsule (Macrobid) carvedilol 3.125 mg tablet 3.125 mg PO BID #180 tabs 11/15/23 tamsulosin 0.4 mg capsule 0.4 mg PO BEDTIME #30 caps 11/15/23 cefdinir 300 mg capsule 300 mg PO BID 10 days #20 caps 12/05/23 Allergies Allergy/AdvReac Type Severity Reaction Status Date / Time oxycodone [From PERCOCET] Allergy Severe RASH Verified 12/05/23 08:02 sulfamethoxazole AdvReac Intermediate Verified 12/05/23 08:02 [From Bactrim] trimethoprim [From Bactrim] AdvReac Intermediate Verified 12/05/23 08:02 lisinopril/HCTZ AdvReac Intermediate acute Uncoded 12/05/23 08:02 kidney injury Review of Systems Review of Systems Narrative: see HPI Patient History Medical History (Updated 12/05/23 @ 08:57 by Dangelo Rincon MD) BPH with obstruction/lower urinary tract symptoms CKD stage 3a, GFR 45-59 ml/min Chronic prostatitis Osteoarthritis (~1999) Lumbar disc disease (~2015) Fractures (~1999) Foot pain (~2017) Chronic back pain (~2013) Carpal tunnel syndrome (~2017) Mumps (~1953) Measles (~1953) Chicken pox (~1948) Tinnitus Hearing loss (~1969) Cataracts, bilateral (~2017) Slow transit constipation Mixed hyperlipidemia Essential hypertension Feeling of incomplete bladder emptying History of kidney stones Lower urinary tract symptoms Benign prostatic hyperplasia Elevated PSA (~2022) Male circumcision Gout (~2014) Surgical History Anesthesia History of cataract removal with insertion of prosthetic lens (~2019) History of carpal tunnel release (~2021) History of shoulder surgery (~2020) H/O vasectomy History of back surgery (~2015) Family History Mother COPD (chronic obstructive pulmonary disease) Brother Cancer Social History marital status: number of children: 2 household members: spouse Smoking Status: Former smoker alcohol intake: former Type(s) of exercise: walking and weight lifting frequency: 3-4 times per week Smoking Status: Former smoker alcohol intake frequency: holidays/special occasions only Substance Use Type: does not use Exam Narrative Exam Narrative: GENERAL: Well-developed patient, in mild distress. HEAD: Atraumatic. Normocephalic. EYES: Pupils equal round and reactive. Extraocular motions intact. No scleral icterus. No injection or drainage. ENT: Nose without bleeding, purulent drainage. Throat without erythema, tonsillar hypertrophy or exudate. Airway patent. NECK: Trachea midline. Non tender CARDIOVASCULAR: Regular rate and rhythm without murmurs, gallops, or rubs. RESPIRATORY: Clear to auscultation. Breath sounds equal bilaterally. No wheezes, rales, or rhonchi. GASTROINTESTINAL: Abdomen soft, non-tender, nondistended. EXTREMITIES: No edema or joint tenderness. BACK: Nontender without deformity or crepitance. No flank tenderness. NEURO: AOx3. Grossly nonfocal motor exam SKIN: No rash or erythema of visible areas Initial Vital Signs Initial Vital Signs: Vital Signs Temperature 97.9 F 12/05/23 08:03 Pulse Rate 61 12/05/23 08:03 Respiratory Rate 16 12/05/23 08:03 Blood Pressure 148/68 H 12/05/23 08:03 Pulse Oximetry 98 12/05/23 08:03 Oxygen Delivery Method Room Air 12/05/23 08:03 Course Orders Ordered: Discontinued Medications Cefdinir (Cefdinir 300 Mg Capsule) 300 mg PO NOW ONE Stop: 12/05/23 08:34 Last Admin: 12/05/23 08:44 Dose: 300 mg Documented By: LISETTE Ondansetron HCl (Ondansetron 4 Mg/2 Ml Inj) 4 mg IV NOW PRN PRN Reason: Nausea And Vomiting Ondansetron HCl (Ondansetron 4 Mg Odt) 4 mg SL NOW PRN PRN Reason: Nausea And Vomiting Vital Signs Vital signs: Vital Signs - 8 hr 12/05/23 08:03 Temperature 97.9 F Pulse Rate 61 Respiratory Rate 16 Blood Pressure 148/68 H Pulse Oximetry 98 Oxygen Delivery Method Room Air MDM - Male Genitourinary Lab Data Attestation: I reviewed the patient's lab results. Lab results narrative: Urinalysis suspicious for urine infection, urine culture reflex ordered per protocol Labs: Lab Results 12/05/23 Range/Units 07:50 Urine RBC 1-5/hpf (0-5/HPF) Urine WBC >100/hpf H (0-5/HPF) Ur Squamous Epith Cells 0-1 /hpf (0-5/HPF) Urine Bacteria Many (>30) H (None) Ur Culture Indicated? Specimen cultured Vol Urine Centrifuged 10ml (spun) Urine Dip Bedside Urine Glucose Negative Bedside Urine Bilirubin - Negative Bedside Urine Ketone - Negative Urine Specific [place] 1.015 Bedside Urine Occult Blood ++ Bedside Urine pH 6.0 Bedside Urine Protein + 30 Bedside Urine Urobilinogen - Negative Bedside Urine Nitrite + Positive Bedside Urine Leukocytes +++ 500 Esterase MDM Narrative Medical decision making narrative: 78-year-old male with painful frequent urination, concern for urinary tract infection, afebrile, sirs screen negative. No back/flank pain discomfort or tenderness with percussion. Urinalysis pending. Urinalysis shows pyuria and bacteriuria, urine culture reflex indicated and ordered by protocol. First dose oral cefdinir, prescription for 10 day course for now. Patient advised if urine infection felt to be chronic prostatitis a longer course of antibiotics likely will be needed, versus short course for cystitis/pyelonephritis. No upper tract symptoms at this time. We discussed quinolone antibiotics, but advanced age, wrist of toxicity including tendinopathy and mental status, declined for now. We will use course of cefdinir, 10 day course prescription sent to his pharmacy. Contact his urologist Dr. Chaparro advised in the next 2-3 days after urine culture results likely available, to further delineate duration of antibiotic treatment. Return precautions discussed. Discharge Plan Departure Patient Disposition: Home Clinical Impression: Urinary tract infection, History of chronic prostatitis Activity Restrictions/Additional Instructions: History of chronic prostatitis, recent multi week course of Macrobid antibiotic completed 12/03/2023, now with aching and discomfort with urination. Urinalysis today showed many bacteria and many inflammatory cells. No perineal or scrotal area discomfort. Urine culture was requested. First dose of antibiotic cefdinir given in the emergency department, prescription sent to your pharmacy. Contact your urologist to see if a repeat long course of antibiotics is again needed, 10 day supply for now, but if there is presumed recurrence of chronic prostatitis a much longer course might be necessary. Urine culture results should be available in the next couple of days. Recheck with your urologist in the next couple of days once urine culture results likely available. Return to this/nearest emergency department for any change worsening symptoms or any concerns prior Prescriptions: New cefdinir 300 mg capsule 300 mg PO BID 10 Days Qty: 20 0RF No Action Suflave 178.7-7.3-0.5 gram recon soln 1,000 ml PO DIRECTED Qty: 2000 0RF Rx Instructions: take as directed by Physician omega 6-ben-htf-fish oil [Fish Oil] 1,000 mg (120 mg-180 mg) capsule 1 cap PO DAILY cholecalciferol (vitamin D3) 125 mcg (5,000 unit) capsule 125 mcg PO DAILY sea-iodine 1 cap PO DAILY rosuvastatin 20 mg tablet 20 mg PO DAILY Qty: 90 3RF allopurinol 100 mg tablet 200 mg PO DAILY Qty: 180 3RF tamsulosin 0.4 mg capsule 0.4 mg PO BEDTIME Qty: 30 1RF carvedilol 3.125 mg tablet 3.125 mg PO BID Qty: 180 1RF Rx Instructions: must administer with a meal/food amlodipine 5 mg tablet 5 mg PO DAILY Qty: 90 3RF nitrofurantoin monohyd/m-cryst [Macrobid] 100 mg capsule See Rx Instructions .ROUTE .COMPLEX Qty: 30 0RF Rx Instructions: 1T PO BID for 5D then 1T PO QD after that at bedtime PreserVision AREDS 4,296 mcg-226 mg-90 mg capsule 1 cap PO BID Referrals: Boy Sosa MD [Primary Care Provider] - Francois Chaparro MD [Physician] - Stand Alone Forms: Patient Portal/API
[2023-12-05 08:16] LABS: Urine Volume 10mL (spun)
[2023-12-05 08:17] LABS: Bacteria Urine Many (>30); Culture Indicated Urine Specimen Cultured; RBC Urine 1-5/HPF (0-5/HPF); Squamous Epithelial Cell Urine 0-1 /HPF (0-5/HPF); WBC Urine >100/HPF (0-5/HPF)
[2023-12-05] MEDS: CEFDINIR 300 MG CAPSULE PO (08:44)
== END 2023-12-05 09:21 | disposition home or self-care (01) ==
PROVIDERS: Emergency Provider Emergency Medicine; PCP Internal Medicine
DX: N39.0 Urinary tract infection, site not specified (principal); Z87.438 Personal history of other diseases of male genital organs
CPT/HCPCS: 81003; 81015; 87077; 87086; 87186; 99283

== ENCOUNTER → 2024-02-08 08:09 | Outpatient (CLI) | payer MEDICARE, SELFPAY ==
--- NOTE | 2024-02-08 08:10 | DI.MRI.S_ITS ---
PROCEDURE: MR LUMBAR SPINE WO CON INDICATIONS: SPINAL STENOSIS LUMBAR REGION TECHNIQUE: Noncontrast sagittal T1 spin echo and T2 fast echo, sagittal STIR, and T2 fast spin echo through the lumbar spine. In cases with scoliosis, additional coronal T2 fast spin echo may be performed. COMPARISON: [facility], CR, SPINE LUMB 2 OR 3VW, 04/13/2016, 10:45. [facility], , L-SPINE WITHOUT CONTRAST, 01/12/2015, 19:23. FINDINGS: Image quality: Excellent. Alignment and Curvature: 5 lumbar type vertebral bodies are present by plain film. Loss of normal lumbar lordosis. 2 mm of retrolisthesis of L1 on L2, L2 on L3, and L3 on L4. Bone Marrow: Marrow is of normal overall signal. No acute vertebral body compression fractures. Posterior fusion hardware at L5-S1. Mild reactive signal throughout the endplates of the lumbar and lower thoracic spine. Spinal Cord: Conus medullaris terminates at the L1-L2 disc space level. Visualized cord demonstrates normal signal and size. Paraspinous Soft Tissues: No paravertebral masses. Bilateral renal cysts. T12-L1: Moderate disc desiccation. Mild diffuse disc bulge. Mild facet and ligamentum flavum hypertrophy. Mild canal stenosis. Mild bilateral foraminal stenosis. No significant change. L1-L2: Moderate disc desiccation. Mild disc height loss and diffuse disc bulge. Mild canal stenosis. Mild bilateral foraminal stenosis. No significant change. L2-L3: Severe disc height loss and desiccation. Moderate diffuse disc bulge. Mild facet and ligamentum flavum hypertrophy. Mild epidural lipomatosis. Increased, severe canal stenosis. Moderate left and mild right foraminal stenosis is not significantly changed. L3-L4: Moderate disc height loss and desiccation. Mild diffuse disc bulge. Mild facet and ligamentum flavum hypertrophy. Increased, moderate canal stenosis. No change in moderate right and mild left foraminal stenosis. L4-L5: Posterior fusion hardware. Interbody device placement. Mild residual disc bulge/osteophyte. Mild bilateral facet hypertrophy. Mild canal stenosis. Moderate bilateral foraminal stenosis. No significant change. L5-S1: Moderate disc desiccation. Mild diffuse disc bulge. Moderate bilateral facet hypertrophy. Mild canal stenosis. Moderate bilateral foraminal stenosis. No significant change. IMPRESSION: 1. Postsurgical sequelae. 2. Multilevel degenerative disc and facet disease, as well as ligamentum flavum hypertrophy and epidural lipomatosis. 3. Multilevel canal stenoses, worst at L2-L3 where there is increased, severe canal stenosis. 4. Multilevel mild and moderate foraminal stenoses. Dictated by: Lizandro Holden M.D. on 02/08/2024 at 11:19 Approved by: Lizandro Holden M.D. on 02/08/2024 at 11:27
== END ==
PROVIDERS: PCP Internal Medicine; Referring Provider Physical Medicine & Rehabilitation Pain Medicine; Visit Provider Physical Medicine & Rehabilitation Pain Medicine
DX: M48.062 Spinal stenosis, lumbar region with neurogenic claudication (principal); M48.07 Spinal stenosis, lumbosacral region; M51.369 Other intervertebral disc degeneration, lumbar region without mention of lumbar back pain or lower extremity pain; M51.379 Other intervertebral disc degeneration, lumbosacral region without mention of lumbar back pain or lower extremity pain; M47.816 Spondylosis without myelopathy or radiculopathy, lumbar region; M47.817 Spondylosis without myelopathy or radiculopathy, lumbosacral region; N28.1 Cyst of kidney, acquired; Z98.1 Arthrodesis status
CPT/HCPCS: 72148

== ENCOUNTER 2024-04-16 07:03 | Day surgery (SDC) | payer MEDICARE, SELFPAY ==
--- NOTE | 2024-04-16 | PATH_ITS ---
[facility] Accession Number: [id number] No. of containers..01 Tissue . 01 Material submitted: . colon - CECAL POLYP . 01 Diagnosis: CECAL POLYP: Tubular adenoma. [facility] 04/18/2024 1136 Local . 01 Electronically signed: . Jonny Ennis MD, Pathologist NPI- [id number] . 01 Gross description: . Received in formalin with two patient identifiers and 1. Cecal polyp, are four hilton soft tissue fragments, 0.5-0.8 cm in greatest dimension, submitted in A1. ([id number]) /MRV 04/18/2024 1136 Local . 01 Pathologist provided ICD-10: D12.0 . 01 CPT . 132609 Performed at: [address] [id number] MD Jonny Ennis MD Phone: [phone]
[2024-04-16] MEDS: LACTATED RINGERS 1,000 ML 42 ML IV (07:45)
[2024-04-16 07:46] VITALS: BP 128/63; PULSE 58; RESP 14; TEMP 37.1; O2SAT 96
--- NOTE | 2024-04-16 08:00 | P.HP_ITS ---
History of Present Illness History of Present Illness Date Patient Seen: 04/16/24 Time Patient Seen: 08:00 Date of Onset of Symptoms: 04/16/24 Chief complaint: Colonoscopy Narrative: 79-year-old white male no previous history of polyps, and overall very good health, presents for screening colonoscopy. [facility] Medical History (Updated 04/16/24 @ 08:01 by Angel Farias MD) Colon cancer screening (04/16/24) Prostatitis BPH with obstruction/lower urinary tract symptoms CKD stage 3a, GFR 45-59 ml/min Chronic prostatitis Osteoarthritis (~1999) Lumbar disc disease (~2015) Fractures (~1999) Foot pain (~2017) Chronic back pain (~2013) Carpal tunnel syndrome (~2017) Mumps (~1953) Measles (~1953) Chicken pox (~1948) Tinnitus Hearing loss (~1969) Cataracts, bilateral (~2017) Slow transit constipation Mixed hyperlipidemia Essential hypertension Feeling of incomplete bladder emptying History of kidney stones Lower urinary tract symptoms Benign prostatic hyperplasia Elevated PSA (~2022) Male circumcision Gout (~2014) Surgical History Anesthesia History of cataract removal with insertion of prosthetic lens (~2019) History of carpal tunnel release (~2021) History of shoulder surgery (~2020) H/O vasectomy History of back surgery (~2015) Family History Mother COPD (chronic obstructive pulmonary disease) Brother Cancer Social History marital status: number of children: 2 household members: spouse Smoking Status: Former smoker alcohol intake: former Type(s) of exercise: walking and weight lifting frequency: 3-4 times per week Meds Home Medications and Allergies Home Medications Medication Instructions Recorded Confirmed Type vitamins A,C,I-succ-wnbyao 4,296 1 cap PO BID 04/12/22 04/16/24 History mcg-226 mg-90 mg capsule (PreserVision AREDS) allopurinol 100 mg tablet 200 mg (2 x 100 mg) PO DAILY #180 07/25/23 04/16/24 Rx tabs cholecalciferol (vitamin D3) 125 125 mcg PO DAILY 07/25/23 04/16/24 History mcg (5,000 unit) capsule omega 4-vjj-orb-fish oil 1,000 mg 1 cap PO DAILY 07/25/23 04/16/24 History (120 mg-180 mg) capsule (Fish Oil) rosuvastatin 20 mg tablet 20 mg PO DAILY #90 tabs 07/25/23 04/16/24 Rx sea-iodine 1 cap PO DAILY 07/25/23 04/16/24 History amlodipine 5 mg tablet 5 mg PO DAILY #90 tabs 08/28/23 04/16/24 Rx ciprofloxacin HCl 500 mg tablet 500 mg PO BID #84 tabs 12/14/23 01/24/24 Rx tamsulosin 0.4 mg capsule 0.4 mg PO BEDTIME #90 caps 12/14/23 04/16/24 Rx carvedilol 3.125 mg tablet 3.125 mg PO BID #180 tabs 02/13/24 04/16/24 Rx polyethylene glycol 3350 17 gram 17 g PO DAILY 04/16/24 04/16/24 History oral powder packet (Miralax) Allergies Allergy/AdvReac Type Severity Reaction Status Date / Time oxycodone [From PERCOCET] Allergy Severe ITCHING Verified 04/16/24 07:32 hydrochlorothiazide AdvReac Intermediate ACUTE Verified 04/16/24 07:58 KIDNEY INJURY lisinopril AdvReac Intermediate ACUTE Verified 04/16/24 07:58 KIDNEY INJURY sulfamethoxazole AdvReac Intermediate Verified 04/16/24 07:18 [From Bactrim] trimethoprim [From Bactrim] AdvReac Intermediate Verified 04/16/24 07:18 Review of Systems Review of Systems ROS: Yes All systems reviewed with the patient and are negative except as otherwise documented Exam Vital Signs (past 8 hours): - 04/16/24 07:46 Temperature 98.8 F Pulse Rate 58 L Respiratory Rate 14 Blood Pressure 128/63 Pulse Oximetry 96 Oxygen Delivery Method Room Air Oxygen Delivery Method Room Air Narrative Exam Narrative: Gen: NAD, sitting comfortably in bed, appears well HEENT: Sclera are anicteric, head is normocephalic and atraumatic, trachea is midline. CV: RRR, no JVD Resp: clear to auscultation bilaterally, equal chest wall movement bilaterally Abd: soft, nontender, normoactive bowel sounds Ext: no edema, full range of motion Neuro: Cranial nerves II-XII grossly intact, no focal deficits Skin: No erythema or ecchymosis Assessment & Plan Assessment and plan (1) Colon cancer screening: Status: Acute Assessment & Plan narrative: Patient presents for colonoscopy Risks, benefits, alternatives to colonoscopy explained, including but not limited to bowel perforation or other serious complication requiring surgery at less than 1 in 5000 colonoscopies, abdominal pain, cramping or bleeding and less than 1% of colonoscopies, and the chances that we find a diagnosis that would require further intervention of about 2%. Patient agrees to proceed. Time-Based Coding :: [TOTAL MINUTES] spent with patient and on the chart (including review of chart, obtaining history, exam, reviewing outside data, placing orders, documenting exam and treatment plan, and counseling patient) on [DATE]. 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
[2024-04-16 08:22] VITALS: BP 96/44; PULSE 59; RESP 14; TEMP 36.6; O2SAT 95
--- NOTE | 2024-04-16 08:22 | PM.OP.COLON ---
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 Mac was induced. Patient was placed in left lateral decubitus position. The perineum was inspected without any gross abnormality. Lubricated pediatric colonoscope was inserted and advanced to the cecum. The terminal ileum was intubated. The colonoscope was withdrawn slowly inspecting the circumference of the colon. There was a polyp just over 10 mm in size, adenomatous appearing, in the cecum. This was removed completely with cold snare polypectomy and retrieved. Extensive colonic diverticulosis, Very small polyps may have been missed, prep quality was adequate. Retroflexed view of the rectum showed small, non prolapsed nonbleeding internal hemorrhoids. The scope was withdrawn the patient was taken to PACU in good condition. Scope withdrawal time: 9 Sedation minutes: 14 Findings: divertiulosis, internal hemorrhoids and polyp(s) Specimen(s): other (Cecal polyp) Impression: Cecal polyp over 10 mm in size Post-procedure Recommendations: Colonoscopy in 3 years Follow up: as needed Disposition: PACU
[2024-04-16 08:27] VITALS: BP 102/51; PULSE 55; RESP 16; O2SAT 94
[2024-04-16 08:32] VITALS: BP 110/62; PULSE 63; RESP 18; TEMP 36.6; O2SAT 96
[2024-04-16 08:38] VITALS: BP 120/58; PULSE 61; RESP 14; O2SAT 97
== END 2024-04-16 08:53 | disposition home or self-care (01) ==
PROVIDERS: PCP Internal Medicine; Referring Provider Surgery; Visit Provider Surgery
PROC: 0DJD8ZZ Inspection of Lower Intestinal Tract, Via Natural or Artificial Opening Endoscopic (ICD-10-PCS; CPT 45378; principal; 2024-04-16 08:15)
DX: Z12.11 Encounter for screening for malignant neoplasm of colon (principal); Z87.891 Personal history of nicotine dependence; K64.8 Other hemorrhoids; K57.30 Diverticulosis of large intestine without perforation or abscess without bleeding; D12.0 Benign neoplasm of cecum
CPT/HCPCS: 45385; J2704

== ENCOUNTER → 2024-05-08 10:58 | Outpatient (CLI) | payer MEDICARE, SELFPAY ==
[2024-05-08 12:05] LABS: Hematocrit 42.8 % (41-53); Hemoglobin 14.5 g/dL (13.5-17.5); Mean Corpuscular HGB Conc 33.8 % (30-36); Mean Corpuscular Hemoglobin 32.2 PG (26-34); Mean Corpuscular Volume 95.2 fL (80-100); Platelet Count 205 X10^3/uL (150-400); Red Blood Cell Count 4.49 X10^6/uL (4.5-5.9); Red Cell Distribution Width 15.3 % (11.6-14.8); White Blood Cell Count 6.2 X10^3/uL (4.5-11.0)
[2024-05-08 12:27] LABS: Aspartate Aminotransferase 27 IU/L (17-59); Blood Urea Nitrogen 20 mg/dL (9-20); Calcium 9.7 mg/dL (8.4-10.2); Carbon Dioxide 25 mmol/L (22-32); Chloride 106 mmol/L (98-107); Cholesterol 107 mg/dL (140-199); Estimated Glomerular Filt Rate 59 mL/min (>60); Glucose 103 mg/dL (80-110); HDL Cholesterol 44 mg/dL (40-60); HEMOLYSIS < 15 (0-50); LDL Cholesterol Calculated 49 mg/dL (<100); Sodium 143 mmol/L (137-145); Triglycerides 71 mg/dL (35-150)
[2024-05-09 08:40] LABS: Calcium 9.6 mg/dL (8.6-10.2); Parathyroid Hormone, Intact 46 pg/mL (15-65)
== END ==
PROVIDERS: Family Provider Internal Medicine; PCP Internal Medicine; Referring Provider Internal Medicine; Visit Provider Internal Medicine
DX: N18.31 Chronic kidney disease, stage 3a (principal); N40.1 Benign prostatic hyperplasia with lower urinary tract symptoms; N13.8 Other obstructive and reflux uropathy; E78.2 Mixed hyperlipidemia
CPT/HCPCS: 36415; 80048; 80061; 82310; 83970; 84153; 84450; 85027

== ENCOUNTER 2024-05-29 13:45 | Outpatient (RCR) | payer MEDICARE, SELFPAY ==
--- NOTE | 2024-05-06 17:24 | PT.OIE ---
Current Diagnoses Spondylosis without myelopathy or radiculopathy, lumbar region (05/06/24) Arthrodesis status (05/06/24) Past Medical History (Last Updated 04/16/24 @ 08:01 by Angel Farias MD) Benign prostatic hyperplasia BPH with obstruction/lower urinary tract symptoms Carpal tunnel syndrome (~2017) Cataracts, bilateral (~2017) Chicken pox (~194) Chronic back pain (~2013) Chronic prostatitis CKD stage 3a, GFR 45-59 ml/min Colon cancer screening (04/16/24) Elevated PSA (~2022) Essential hypertension Feeling of incomplete bladder emptying Foot pain (~2017) Fractures (~1999) Gout (~2014) Hearing loss (~1969) History of kidney stones Lower urinary tract symptoms Lumbar disc disease (~2015) Male circumcision Measles (~1953) Mixed hyperlipidemia Mumps (~1953) Osteoarthritis (~1999) Prostatitis Slow transit constipation Tinnitus Past Surgical History (Last Reviewed 04/16/24 @ 08:00 by Angel Farias MD) Anesthesia H/O vasectomy History of back surgery (~2015) History of carpal tunnel release (~2021) History of cataract removal with insertion of prosthetic lens (~2019) History of shoulder surgery (~2020) Visit Care Team Role Provider Type Boy Sosa MD Family Provider Physician Primary Care Provider Specialty: Internal Medicine Address: [address] [place] [address], [id number] Email: [email or web address] Jeferson Anderson DO Attending Provider Non-Staff Referring Provider Specialty: Orthopedic Surgery Address: [facility] [address], [place], [address] Email: Physical Therapy Initial Evaluation PT-OP-A Visit Information Start: 05/06/24 08:14 Freq: Status: Active Protocol: Document 05/06/24 10:42 [facility] (Rec: 05/06/24 12:32 [facility] [id number]) Out-Patient Physical Therapy Visit Information Visit Information Visit Type Initial Evaluation Visit Start Time 10:45 Visit Stop Time 11:30 Visit Number 1 Number of IRB COMPLIANCE COORDINATOR Visits 0 PT-OP-B Current Condition Start: 05/06/24 08:14 Freq: Status: Active Protocol: Document 05/06/24 10:42 [facility] (Rec: 05/06/24 12:32 [facility] [id number]) Current Condition History of Current Condition Onset Date >10 years ago chronic. Current Complaints back pain History of Current Condition Pt had a fusion of L4-5 10 years ago. Saw an othopedic and he suggested PT first. Pt reports L leg is weak and it affects his gait. he can't walk very far d/t weakness and pain. L leg was weak since prior to fusion. The surgery didn't improve much but it didn't get any worse. Last injection was over a year ago. THey help with pain but the pain comes back. He is very active. no hx of accidents. 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 Lays on a backboard with his own back support and has to do sit up and shoot. currently using the bowflex, wants to start walking more. He uses a cane if he is walking more than a parking lot. Pt has arthritis B knees and neck also and mult other jts. Hx of bunionectomy B, CTR B. Prior Treatments and Tests MRI in jan IMPRESSION: 1. Postsurgical sequelae. 2. Multilevel degenerative disc and facet disease, as well as ligamentum flavum hypertrophy and epidural lipomatosis. 3. Multilevel canal stenoses, worst at L2-L3 where there is increased, severe canal stenosis. 4. Multilevel mild and moderate foraminal stenoses. Treatment Goals Patient/Caregiver Goals Get stronger, improve flexibility, be able to do goose hunting season this fall , be able walk longer PT-OP-C Subjective Start: 05/06/24 08:14 Freq: Status: Active Protocol: Document 05/06/24 10:42 [facility] (Rec: 05/06/24 12:32 [facility] [id number]) Patient Questionnaires Oswestry Low Back Index Oswestry Score 12% PT-OP-D Balance Start: 05/06/24 08:14 Freq: Status: Active Protocol: Document 05/06/24 10:42 [facility] (Rec: 05/06/24 12:32 [facility] [id number]) Balance Tests Single Limb Standing Single Limb- Right 1 sec Single Limb- Left 1 sec PT-OP-E Functional Tests Start: 05/06/24 08:14 Freq: Status: Active Protocol: Document 05/06/24 10:42 [facility] (Rec: 05/06/24 12:32 [place] [id number]) Functional Tests 6 Minute Walk Test Distance 980ft Device Used none PT-OP-G Mobility & Gait Start: 05/06/24 08:14 Freq: Status: Active Protocol: Document 05/06/24 10:42 [facility] (Rec: 05/06/24 12:32 [place] [id number]) OP Gait Assessment Comments Gait Comments dec foot clearance and dec stance time LLE, rigid trunk and dec arm swing, dec push off LEL PT-OP-J Posture/Palpation/Skin Start: 05/06/24 08:14 Freq: Status: Active Protocol: Document 05/06/24 10:42 [facility] (Rec: 05/06/24 12:32 [place] [id number]) Posture Evaluation Avani Postural Classification System Avani Postural Classifications Posterior/Anterior Lumbar Protective Mechanism Left AP 0 Lumbar Protective Mechanism Right AP 0 Lumbar Protective Mechanism Left PA 0 Lumbar Protective Mechanism Right PA 0 Comments Posture Comments L pelvic shear, L iliac crest higher, R trunk rot, inc kyphosis & fwd head, flateening lumbar spine PT-OP-K Range of Motion Start: 05/06/24 08:14 Freq: Status: Active Protocol: Document 05/06/24 10:42 [facility] (Rec: 05/06/24 12:32 [place] [id number]) Lumbar Spine Range of Motion Lumbar Spine Active Percentage Flexion 20 Extension 10 Rotation Left 15 Rotation Right 15 Lateral Flexion Left 30 Lateral Flexion Right 40 PT-OP-L Special Tests Start: 05/06/24 08:14 Freq: Status: Active Protocol: Document 05/06/24 10:42 [facility] (Rec: 05/06/24 12:32 [place] [id number]) Special Tests Lumbar Spine Special Tests Slump Test Results LLE feels stiff Straight Leg Raise Test Results HS/calf pull B about 40 deg L and 50deg R PT-OP-M Strength Start: 05/06/24 08:14 Freq: Status: Active Protocol: Document 05/06/24 10:42 [facility] (Rec: 05/06/24 12:32 [place] [id number]) Hip Strength Hip Manual Muscle Testing Right Flexion (L2) 4- Good- Abduction 3+ Fair+ External Rotation 3+ Fair+ Internal Rotation 4- Good- Left Flexion (L2) 4- Good- Abduction 3 Fair External Rotation 3+ Fair+ Internal Rotation 4+ Good+ Knee Strength Knee Manual Muscle Testing Right Flexion (S2) 4+ Good+ Extension (L3) 5 Normal Left Flexion (S2) 4 Good Extension (L3) 4+ Good+ Ankle/Foot Strength Ankle and Foot Manual Muscle Testing Right Dorsiflexion (L4) 5 Normal Plantarflexion (S1) 5 Normal Comments 20 heel raises Left Dorsiflexion (L4) 5 Normal Plantarflexion (S1) 2 Poor Comments unable to do heel raises PT-OP-Q Treatments Start: 05/06/24 08:14 Freq: Status: Active Protocol: Document 05/06/24 10:42 [facility] (Rec: 05/06/24 12:32 [facility] [id number]) Therapeutic Exercises Supine Exercises bridge Supine Exercise Name control cues and segmenta Side bilateral Reps/Minutes 10 Standing Exercises paloff press Side bilateral Equipment Used 2 Lvl 1 bands Reps/Minutes 10 Comments cues posture hip abd Side bilateral Equipment Used L1 Reps/Minutes 10 Comments cues posture sit to stand Standing Exercise Name cues slow decent Side bilateral Reps/Minutes 10 Comments no hands PT-OP-T Assessment and Plan Start: 05/06/24 08:14 Freq: Status: Active Protocol: Document 05/06/24 10:42 [facility] (Rec: 05/06/24 12:32 [facility] [id number]) Physical Therapy Assessment Rehab Potential Rehabilitation Potential Good Evaluation Complexity Number of Personal Factors/Comorbidities 3 or More Number of Body Systems Impaired 4 or More Clinical Presentation at Evaluation Evolving Impairments Impairments Activity Tolerance,Balance, Functional Activities, Functional Mobility,Gait,Pain, Posture,ROM,Soft Tissue Mobility,Strength Other Concerns Barriers to Rehabilitation high copay limits visits Goals activity Short Term Goal (STG) Pt iwll report ability to start small walks in community w/o pain greater than 3/10 STG Duration 06/06 Professor Of Literature Goal (LTG) Pt will be able to do at least 20 sit ups to allow pt to be able to [place] LTG Duration 07/15 strength Short Term Goal (STG) Pt will be indep w/strength HEP STG Duration 06/06 Professor Of Literature Goal (LTG) pt will score at least 4/5 on all BLE MMT and at least 2/5 LPM to show improved core stability and strength to allow greater ease w/typical activities LTG Duration 07/13 6 min walk Impairment 980ft Short Term Goal (STG) Pt will improve 6 min walk to at least 1080ft STG Duration 06/06 [facility] Goal (LTG) Pt will be able to improve 1300ft for 6 min walk to be able to meet age norms to show activity tolerance improvement. LTG Duration 07/15 Assessment Summary Assessment pt presents w/chronic LB w/LLE pain (>10 years) with report of LLE weakness since then also. He had L4-5 fusion which didn't help pain. He does have significantly dec core and LE strength, impaired gait along w/dec balance and very limited spinal ROM. He would benefit from skilled PT to address these deficits and is limited to an extent by his high co pay for therapy. Physical Therapy Plan Frequency and Duration Frequency of Treatment 2x/Week Duration of treatment (weeks) 10 Plan of Care Start Date 05/06/24 Plan of Care End Date 07/15/24 Therapeutic Interventions Therapeutic Interventions Balance Training,Gait Training ,Home Exercise Program,Joint Mobilizations,Manual Therapy, Neuromuscular Re-education, Orthotic/Prosthetic Management ,Patient/Caregiver Education, Self-Care/Home Management,Soft Tissue Mobilization,Taping, Therapeutic Activities, Therapeutic Exercises Modalities Cold Pack/Ice Massage,Electric Stimulation,Hot Packs Next Visit Focus/Plan Next Note Type Treatment Note Next Visit Plan review exercises, add stretches to hips and spine, advance core strength, balance , standing stability, DF and PF strength, manual to LB and innominate
--- NOTE | 2024-05-06 17:24 | PT.OPPOC ---
Addendum entered and electronically signed by Alma Eller PT 05/06/24 17:24: POC sent Original Note: Physical, Occupational & Speech Therapy At [facility] Current Diagnoses Spondylosis without myelopathy or radiculopathy, lumbar region (05/06/24) Arthrodesis status (05/06/24) Visit Care Team Role Provider Type Boy Sosa MD Family Provider Physician Primary Care Provider Specialty: Internal Medicine Address: [address] [place] [address], [address] Email: [email or web address] Jeferson Anderson DO Attending Provider Non-Staff Referring Provider Specialty: Orthopedic Surgery Address: [address] [place] [address] , [place], [address] Email: Plan Of Care PT-OP-B Current Condition Start: 05/06/24 08:14 Freq: Status: Active Protocol: Document 05/06/24 10:42 [facility] (Rec: 05/06/24 12:32 [facility] [id number]) Current Condition History of Current Condition Onset Date >10 years ago chronic. Current Complaints back pain History of Current Condition Pt had a fusion of L4-5 10 years ago. Saw an othopedic and he suggested PT first. Pt reports L leg is weak and it affects his gait. he can't walk very far d/t weakness and pain. L leg was weak since prior to fusion. The surgery didn't improve much but it didn't get any worse. Last injection was over a year ago. THey help with pain but the pain comes back. He is very active. no hx of accidents. 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 Lays on a backboard with his own back support and has to do sit up and shoot. currently using the bowflex, wants to start walking more. He uses a cane if he is walking more than a parking lot. Pt has arthritis B knees and neck also and mult other jts. Hx of bunionectomy B, CTR B. Prior Treatments and Tests MRI in dec IMPRESSION: 1. Postsurgical sequelae. 2. Multilevel degenerative disc and facet disease, as well as ligamentum flavum hypertrophy and epidural lipomatosis. 3. Multilevel canal stenoses, worst at L2-L3 where there is increased, severe canal stenosis. 4. Multilevel mild and moderate foraminal stenoses. Treatment Goals Patient/Caregiver Goals Get stronger, improve flexibility, be able to do [employer] hunting season this fall , be able walk longer PT-OP-T Assessment and Plan Start: 05/06/24 08:14 Freq: Status: Active Protocol: Document 05/06/24 10:42 [facility] (Rec: 05/06/24 12:32 [facility] [id number]) Physical Therapy Assessment Rehab Potential Rehabilitation Potential Good Evaluation Complexity Number of Personal Factors/Comorbidities 3 or More Number of Body Systems Impaired 4 or More Clinical Presentation at Evaluation Evolving Impairments Impairments Activity Tolerance,Balance, Functional Activities, Functional Mobility,Gait,Pain, Posture,ROM,Soft Tissue Mobility,Strength Other Concerns Barriers to Rehabilitation high copay limits visits Goals activity Short Term Goal (STG) Pt iwll report ability to start small walks in community w/o pain greater than 3/10 STG Duration 06/06 Electronics Production Supervisor Goal (LTG) Pt will be able to do at least 20 sit ups to allow pt to be able to [place] LTG Duration 07/15 strength Short Term Goal (STG) Pt will be indep w/strength HEP STG Duration 06/06 Electronics Production Supervisor Goal (LTG) pt will score at least 4/5 on all BLE MMT and at least 2/5 LPM to show improved core stability and strength to allow greater ease w/typical activities LTG Duration 07/13 6 min walk Impairment 980ft Short Term Goal (STG) Pt will improve 6 min walk to at least 1080ft STG Duration 06/06 [facility] Goal (LTG) Pt will be able to improve 1300ft for 6 min walk to be able to meet age norms to show activity tolerance improvement. LTG Duration 07/15 Assessment Summary Assessment pt presents w/chronic LB w/LLE pain (>10 years) with report of LLE weakness since then also. He had L4-5 fusion which didn't help pain. He does have significantly dec core and LE strength, impaired gait along w/dec balance and very limited spinal ROM. He would benefit from skilled PT to address these deficits and is limited to an extent by his high co pay for therapy. Physical Therapy Plan Frequency and Duration Frequency of Treatment 2x/Week Duration of treatment (weeks) 10 Plan of Care Start Date 05/06/24 Plan of Care End Date 07/15/24 Therapeutic Interventions Therapeutic Interventions Balance Training,Gait Training ,Home Exercise Program,Joint Mobilizations,Manual Therapy, Neuromuscular Re-education, Orthotic/Prosthetic Management ,Patient/Caregiver Education, Self-Care/Home Management,Soft Tissue Mobilization,Taping, Therapeutic Activities, Therapeutic Exercises Modalities Cold Pack/Ice Massage,Electric Stimulation,Hot Packs Next Visit Focus/Plan Next Note Type Treatment Note Next Visit Plan review exercises, add stretches to hips and spine, advance core strength, balance , standing stability, DF and PF strength, manual to LB and innominate Plan of Care Dates Plan of Care Start Date 05/06/24 Plan of Care End Date 07/15/24 Electronically Signed by: Alma Eller, PT 05/06/24 2134 If you are in agreement with this Plan of Care, please return a signed and dated copy. I have reviewed this Plan of Care and certify that the skilled therapy services above are required to meet the patient?s needs. Physician Signature Date Printed Name and Credentials Clinical Instructor Signature Printed Name and Credentials
--- NOTE | 2024-05-14 14:16 | PT.OTN ---
Current Diagnoses Spondylosis without myelopathy or radiculopathy, lumbar region (05/14/24) Arthrodesis status (05/14/24) Physical Therapy Treatment Note PT-OP-A Visit Information Start: 05/06/24 08:14 Freq: Status: Active Protocol: Document 05/14/24 11:06 NB (Rec: 05/14/24 11:38 [facility] [id number]) Out-Patient Physical Therapy Visit Information Visit Information Visit Type Treatment Note Visit Start Time 10:55 Visit Stop Time 11:37 Visit Number 2 Number of FOURTH HAND Visits 1 PT-OP-B Current Condition Start: 05/06/24 08:14 Freq: Status: Active Protocol: Document 05/06/24 10:42 [facility] (Rec: 05/06/24 12:32 [facility] [id number]) Current Condition History of Current Condition Onset Date >10 years ago chronic. Current Complaints back pain History of Current Condition Pt had a fusion of L4-5 10 years ago. Saw an othopedic and he suggested PT first. Pt reports L leg is weak and it affects his gait. he can't walk very far d/t weakness and pain. L leg was weak since prior to fusion. The surgery didn't improve much but it didn't get any worse. Last injection was over a year ago. THey help with pain but the pain comes back. He is very active. no hx of accidents. 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 Had a MRI. 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 Lays on a backboard with his own back support and has to do sit up and shoot. currently using the bowflex, wants to start walking more. He uses a cane if he is walking more than a parking lot. Pt has arthritis B knees and neck also and mult other jts. Hx of bunionectomy B, CTR B. Prior Treatments and Tests MRI in jan IMPRESSION: 1. Postsurgical sequelae. 2. Multilevel degenerative disc and facet disease, as well as ligamentum flavum hypertrophy and epidural lipomatosis. 3. Multilevel canal stenoses, worst at L2-L3 where there is increased, severe canal stenosis. 4. Multilevel mild and moderate foraminal stenoses. Treatment Goals Patient/Caregiver Goals Get stronger, improve flexibility, be able to do goose hunting season this fall , be able walk longer PT-OP-C Subjective Start: 05/06/24 08:14 Freq: Status: Active Protocol: Document 05/14/24 11:06 [facility] (Rec: 05/14/24 11:38 [facility] [id number]) OP-PT Subjective Patient Comments Patient Comments Sanford reports currrent low back pain 4/10 but I can make it 6/10 if I bend over. He has Tylenol in his system right now. He has a question with one of the exercises, because he gets vertigo when lying flat to do bridge. He uses an external lumbar support when lying flat no board for goose hunting. PT-OP-D Balance Start: 05/06/24 08:14 Freq: Status: Active Protocol: Document 05/06/24 10:42 [facility] (Rec: 05/06/24 12:32 [facility] [id number]) Balance Tests Single Limb Standing Single Limb- Right 1 sec Single Limb- Left 1 sec PT-OP-E Functional Tests Start: 05/06/24 08:14 Freq: Status: Active Protocol: Document 05/06/24 10:42 [facility] (Rec: 05/06/24 12:32 [facility] [id number]) Functional Tests 6 Minute Walk Test Distance 980ft Device Used none PT-OP-G Mobility & Gait Start: 05/06/24 08:14 Freq: Status: Active Protocol: Document 05/06/24 10:42 [facility] (Rec: 05/06/24 12:32 [facility] [id number]) OP Gait Assessment Comments Gait Comments dec foot clearance and dec stance time LLE, rigid trunk and dec arm swing, dec push off LEL PT-OP-J Posture/Palpation/Skin Start: 05/06/24 08:14 Freq: Status: Active Protocol: Document 05/06/24 10:42 [facility] (Rec: 05/06/24 12:32 [facility] [id number]) Posture Evaluation Avani Postural Classification System Avani Postural Classifications Posterior/Anterior Lumbar Protective Mechanism Left AP 0 Lumbar Protective Mechanism Right AP 0 Lumbar Protective Mechanism Left PA 0 Lumbar Protective Mechanism Right PA 0 Comments Posture Comments L pelvic shear, L iliac crest higher, R trunk rot, inc kyphosis & fwd head, flateening lumbar spine PT-OP-K Range of Motion Start: 05/06/24 08:14 Freq: Status: Active Protocol: Document 05/06/24 10:42 [facility] (Rec: 05/06/24 12:32 [facility] [id number]) Lumbar Spine Range of Motion Lumbar Spine Active Percentage Flexion 20 Extension 10 Rotation Left 15 Rotation Right 15 Lateral Flexion Left 30 Lateral Flexion Right 40 PT-OP-L Special Tests Start: 05/06/24 08:14 Freq: Status: Active Protocol: Document 05/06/24 10:42 [facility] (Rec: 05/06/24 12:32 [facility] [id number]) Special Tests Lumbar Spine Special Tests Slump Test Results LLE feels stiff Straight Leg Raise Test Results HS/calf pull B about 40 deg L and 50deg R PT-OP-M Strength Start: 05/06/24 08:14 Freq: Status: Active Protocol: Document 05/06/24 10:42 [facility] (Rec: 05/06/24 12:32 [facility] [id number]) Hip Strength Hip Manual Muscle Testing Right Flexion (L2) 4- Good- Abduction 3+ Fair+ External Rotation 3+ Fair+ Internal Rotation 4- Good- Left Flexion (L2) 4- Good- Abduction 3 Fair External Rotation 3+ Fair+ Internal Rotation 4+ Good+ Knee Strength Knee Manual Muscle Testing Right Flexion (S2) 4+ Good+ Extension (L3) 5 Normal Left Flexion (S2) 4 Good Extension (L3) 4+ Good+ Ankle/Foot Strength Ankle and Foot Manual Muscle Testing Right Dorsiflexion (L4) 5 Normal Plantarflexion (S1) 5 Normal Comments 20 heel raises Left Dorsiflexion (L4) 5 Normal Plantarflexion (S1) 2 Poor Comments unable to do heel raises PT-OP-Q Treatments Start: 05/06/24 08:14 Freq: Status: Active Protocol: Document 05/14/24 11:06 [facility] (Rec: 05/14/24 11:38 [facility] [id number]) Therapeutic Exercises Supine Exercises Piriformis stretch Supine Exercise Name Figure 4 Comments Pt's personal HEP. DKTC Side bilateral Reps/Minutes 2x30 sec Comments painfree, positive feedback response TrA Supine Exercise Name 1. w/ PPT 2. w/ LTR Equipment Used monitoring TrA medial to ASIS Reps/Minutes 10 x 2 breathcycles Comments initial tactile cue for PPT, LBP resolves w/ PPT cues bridge Supine Exercise Name cues TrA to initiate, breath, pacing and segmental Side bilateral Equipment Used two pillows - no vertigo reported. Reps/Minutes 10 Comments initial LBP improves w/ cues for TrA, gluteal focus, and breathwork. Sidelying Exercises Open book Sidelying Exercise Name cues TrA, initial setup and form Side bilateral Reps/Minutes x10 ea Comments painfree, positive feedback response Standing Exercises paloff press Standing Exercise Name verbal review hip abd Standing Exercise Name HEP review next session sit to stand Standing Exercise Name cues slow decent, glute squeeze and hip hinge Side bilateral Reps/Minutes 10 Comments no hands Self-Care/Home Management Treatment Education Patient Education Body Mechanics,Home Exercise Program,Pain Management, Posture Other Education HEP review. Edu to pt re: TrA anatomy w/ visual aids, importance of not breathholding, and self- monitoring of TrA activation medial to ASIS. Edu to pt re: stretching in painfree range. PT-OP-T Assessment and Plan Start: 05/06/24 08:14 Freq: Status: Active Protocol: Document 05/14/24 11:06 [facility] (Rec: 05/14/24 11:38 [facility] [id number]) Physical Therapy Assessment Goals activity Short Term Goal (STG) Pt iwll report ability to start small walks in community w/o pain greater than 3/10 STG Duration 06/06 Skilled Nursing Goal (LTG) Pt will be able to do at least 20 sit ups to allow pt to be able to duck west LTG Duration 07/15 strength Short Term Goal (STG) Pt will be indep w/strength HEP STG Duration 06/06 Reagent Tender Goal (LTG) pt will score at least 4/5 on all BLE MMT and at least 2/5 LPM to show improved core stability and strength to allow greater ease w/typical activities LTG Duration 07/13 6 min walk Impairment 980ft Short Term Goal (STG) Pt will improve 6 min walk to at least 1080ft STG Duration 06/06 Skilled Nursing Goal (LTG) Pt will be able to improve 1300ft for 6 min walk to be able to meet age norms to show activity tolerance improvement. LTG Duration 07/15 Assessment Summary Assessment Treatment focus on HEP review w/ Transverse abdominis m. and breath focus. Pain imroves from 4/10 start of session to 0/10 during session and end of session. [place]ford is able to complete bridging without vertigo using two pillow support under head and shoulders. Edu to pt re: TrA anatomy w/ visual aids, importance of not breathholding, and self- monitoring of TrA activation medial to ASIS. Self-awareness of TrA activation and breathholding improves. Added to HEP: LTR w/ PPT, DKTC stretch, sidelying Open book - HO given. Physical Therapy Plan Frequency and Duration Frequency of Treatment 2x/Week Duration of treatment (weeks) 10 Plan of Care Start Date 05/06/24 Plan of Care End Date 07/15/24 Therapeutic Interventions Therapeutic Interventions Balance Training,Gait Training ,Home Exercise Program,Joint Mobilizations,Manual Therapy, Neuromuscular Re-education, Orthotic/Prosthetic Management ,Patient/Caregiver Education, Self-Care/Home Management,Soft Tissue Mobilization,Taping, Therapeutic Activities, Therapeutic Exercises Modalities Cold Pack/Ice Massage,Electric Stimulation,Hot Packs Next Visit Focus/Plan Next Note Type Treatment Note Next Visit Plan full HEP review, add Kitchen sink stretch vs dayna pose, piriformis, continue POC. POC: review exercises, add stretches to hips and spine, advance core strength, balance , standing stability, DF and PF strength, manual to LB and innominate
--- NOTE | 2024-05-21 17:20 | PT.OTN ---
Current Diagnoses Spondylosis without myelopathy or radiculopathy, lumbar region (05/21/24) Arthrodesis status (05/21/24) Physical Therapy Treatment Note PT-OP-A Visit Information Start: 05/06/24 08:14 Freq: Status: Active Protocol: Document 05/21/24 11:44 [facility] (Rec: 05/21/24 12:30 [facility] [id number]) Out-Patient Physical Therapy Visit Information Visit Information Visit Type Treatment Note Visit Start Time 11:35 Visit Stop Time 12:15 Visit Number 3 Number of HEALTH EDUCATION TEACHER Visits 2 PT-OP-B Current Condition Start: 05/06/24 08:14 Freq: Status: Active Protocol: Document 05/06/24 10:42 [facility] (Rec: 05/06/24 12:32 [facility] [id number]) Current Condition History of Current Condition Onset Date >10 years ago chronic. Current Complaints back pain History of Current Condition Pt had a fusion of L4-5 10 years ago. Saw an othopedic and he suggested PT first. Pt reports L leg is weak and it affects his gait. he can't walk very far d/t weakness and pain. L leg was weak since prior to fusion. The surgery didn't improve much but it didn't get any worse. Last injection was over a year ago. THey help with pain but the pain comes back. He is very active. no hx of accidents. 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 Lays on a backboard with his own back support and has to do sit up and shoot. currently using the bowflex, wants to start walking more. He uses a cane if he is walking more than a parking lot. Pt has arthritis B knees and neck also and mult other jts. Hx of bunionectomy B, CTR B. Prior Treatments and Tests MRI in jan IMPRESSION: 1. Postsurgical sequelae. 2. Multilevel degenerative disc and facet disease, as well as ligamentum flavum hypertrophy and epidural lipomatosis. 3. Multilevel canal stenoses, worst at L2-L3 where there is increased, severe canal stenosis. 4. Multilevel mild and moderate foraminal stenoses. Treatment Goals Patient/Caregiver Goals Get stronger, improve flexibility, be able to do goose hunting season this fall , be able walk longer PT-OP-C Subjective Start: 05/06/24 08:14 Freq: Status: Active Protocol: Document 05/21/24 11:44 [facility] (Rec: 05/21/24 12:30 [facility] [id number]) OP-PT Subjective Patient Comments Patient Comments [place]ford reports 5/10 pain right across L4-L5. He's been doing exercises. He brings photo of setup for goose shooting in October. He forgot hearing aids today. He hasn't been going for walks much, he's been gardening. PT-OP-D Balance Start: 05/06/24 08:14 Freq: Status: Active Protocol: Document 05/06/24 10:42 [facility] (Rec: 05/06/24 12:[id number] Balance Tests Single Limb Standing Single Limb- Right 1 sec Single Limb- Left 1 sec PT-OP-E Functional Tests Start: 05/06/24 08:14 Freq: Status: Active Protocol: Document 05/06/24 10:42 [facility] (Rec: 05/06/24 12:32 [facility] [id number]) Functional Tests 6 Minute Walk Test Distance 980ft Device Used none PT-OP-G Mobility & Gait Start: 05/06/24 08:14 Freq: Status: Active Protocol: Document 05/06/24 10:42 [facility] (Rec: 05/06/24 12:32 [facility] [id number]) OP Gait Assessment Comments Gait Comments dec foot clearance and dec stance time LLE, rigid trunk and dec arm swing, dec push off LEL PT-OP-J Posture/Palpation/Skin Start: 05/06/24 08:14 Freq: Status: Active Protocol: Document 05/06/24 10:42 [facility] (Rec: 05/06/24 12:32 [facility] [id number]) Posture Evaluation Avani Postural Classification System Avani Postural Classifications Posterior/Anterior Lumbar Protective Mechanism Left AP 0 Lumbar Protective Mechanism Right AP 0 Lumbar Protective Mechanism Left PA 0 Lumbar Protective Mechanism Right PA 0 Comments Posture Comments L pelvic shear, L iliac crest higher, R trunk rot, inc kyphosis & fwd head, flateening lumbar spine PT-OP-K Range of Motion Start: 05/06/24 08:14 Freq: Status: Active Protocol: Document 05/06/24 10:42 [facility] (Rec: 05/06/24 12:32 [facility] [id number]) Lumbar Spine Range of Motion Lumbar Spine Active Percentage Flexion 20 Extension 10 Rotation Left 15 Rotation Right 15 Lateral Flexion Left 30 Lateral Flexion Right 40 PT-OP-L Special Tests Start: 05/06/24 08:14 Freq: Status: Active Protocol: Document 05/06/24 10:42 [facility] (Rec: 05/06/24 12:32 [facility] [id number]) Special Tests Lumbar Spine Special Tests Slump Test Results LLE feels stiff Straight Leg Raise Test Results HS/calf pull B about 40 deg L and 50deg R PT-OP-M Strength Start: 05/06/24 08:14 Freq: Status: Active Protocol: Document 05/06/24 10:42 [facility] (Rec: 05/06/24 12:32 [facility] [id number]) Hip Strength Hip Manual Muscle Testing Right Flexion (L2) 4- Good- Abduction 3+ Fair+ External Rotation 3+ Fair+ Internal Rotation 4- Good- Left Flexion (L2) 4- Good- Abduction 3 Fair External Rotation 3+ Fair+ Internal Rotation 4+ Good+ Knee Strength Knee Manual Muscle Testing Right Flexion (S2) 4+ Good+ Extension (L3) 5 Normal Left Flexion (S2) 4 Good Extension (L3) 4+ Good+ Ankle/Foot Strength Ankle and Foot Manual Muscle Testing Right Dorsiflexion (L4) 5 Normal Plantarflexion (S1) 5 Normal Comments 20 heel raises Left Dorsiflexion (L4) 5 Normal Plantarflexion (S1) 2 Poor Comments unable to do heel raises PT-OP-Q Treatments Start: 05/06/24 08:14 Freq: Status: Active Protocol: Document 05/21/24 11:44 [facility] (Rec: 05/21/24 12:30 [facility] [id number]) Therapeutic Exercises Supine Exercises Piriformis stretch Supine Exercise Name Figure 4 Side bilateral Comments Pt's personal HEP DKTC Supine Exercise Name 1. static hold (HEP) 2. side to side small range Side bilateral Reps/Minutes 2x30 sec Comments painfree, positive feedback response TrA Supine Exercise Name LTR w/ PPT (HEP review) Reps/Minutes 10 x 2 breathcycles ea Comments cues for smaller range improves response bridge Supine Exercise Name cues TrA to initiate, breath, pacing and segmental (HEP review) Side bilateral Equipment Used two pillows - no vertigo reported. Reps/Minutes 10 Sidelying Exercises Open book Sidelying Exercise Name cues scapular setting and form (HEP review) Side bilateral Reps/Minutes x10 ea Comments painfree, positive feedback response Standing Exercises kitchen sink stretch Standing Exercise Name modified to child's pose w/ pilow supports under hips and arms Equipment Used TM handrail Reps/Minutes 2x30s Comments pt reports tee pain in armpits standing paloff press Standing Exercise Name trunk rotation w/ arms extended (HEP review) Side bilateral Equipment Used 2 Lvl 1 bands Reps/Minutes 10 Comments cues posture hip abd Standing Exercise Name HEP review Side bilateral Equipment Used L1 Reps/Minutes 10 ea Comments cues posture, gluteal activation, neutral foot sit to stand Standing Exercise Name cues slow decent, glute squeeze and hip hinge Side bilateral Reps/Minutes 10 Comments no hands, improves self- awareness Other Exercises child's pose Equipment Used pillow supports under hip and chest Reps/Minutes 30 Comments shoulder and hip discomfort resolves w/ pillow supports PT-OP-T Assessment and Plan Start: 05/06/24 08:14 Freq: Status: Active Protocol: Document 05/21/24 11:44 [facility] (Rec: 05/21/24 12:30 [facility] [id number]) Physical Therapy Assessment Goals activity Short Term Goal (STG) Pt iwll report ability to start small walks in community w/o pain greater than 3/10 05/21/24: Pt reports one small walk in the past week. He is encouraged to increase small walks and provided strategies to address LBP if it occurs during. STG Duration 06/06 Clinic Lpn Goal (LTG) Pt will be able to do at least 20 sit ups to allow pt to be able to duck west LTG Duration 07/15 strength Short Term Goal (STG) Pt will be indep w/strength HEP STG Duration 06/06 Clinic Lpn Goal (LTG) pt will score at least 4/5 on all BLE MMT and at least 2/5 LPM to show improved core stability and strength to allow greater ease w/typical activities LTG Duration 07/13 6 min walk Impairment 980ft Short Term Goal (STG) Pt will improve 6 min walk to at least 1080ft STG Duration 06/06 Clinic Lpn Goal (LTG) Pt will be able to improve 1300ft for 6 min walk to be able to meet age norms to show activity tolerance improvement. LTG Duration 07/15 Assessment Summary Assessment Treatment focus on full HEP review. Pt presents with 5/10 low back pain which improves to 0/10 end of session. Emphasis to pt for PPT with exercises and in sitting and standing for pain management. He is encouraged to increase small walks and provided strategies to address LBP if it occurs during, such as TrA activation and posterior pelvic tilt. Pt is unable to tolerate kitchen sink stretch due to bilateral pain in axilla, but tolerates child's pose modified w/ pillow supports under hips and forearms; pt would benefit from continuing to add stretches to hips and spine. Physical Therapy Plan Frequency and Duration Frequency of Treatment 2x/Week Duration of treatment (weeks) 10 Plan of Care Start Date 05/06/24 Plan of Care End Date 07/15/24 Therapeutic Interventions Therapeutic Interventions Balance Training,Gait Training ,Home Exercise Program,Joint Mobilizations,Manual Therapy, Neuromuscular Re-education, Orthotic/Prosthetic Management ,Patient/Caregiver Education, Self-Care/Home Management,Soft Tissue Mobilization,Taping, Therapeutic Activities, Therapeutic Exercises Modalities Cold Pack/Ice Massage,Electric Stimulation,Hot Packs Next Visit Focus/Plan Next Note Type Treatment Note Next Visit Plan Assess activity goal progress (small walks). modified dayna pose, piriformis, continue POC. POC: review exercises, add stretches to hips and spine, advance core strength, balance , standing stability, DF and PF strength, manual to LB and innominate
--- NOTE | 2024-05-29 15:34 | PT.OTN ---
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) Arthrodesis status (05/29/24) Physical Therapy Treatment Note PT-OP-A Visit Information Start: 05/06/24 08:14 Freq: Status: Active Protocol: Document 05/29/24 14:02 NBM (Rec: 05/29/24 14:40 [facility] [id number]) Out-Patient Physical Therapy Visit Information Visit Information Visit Type Treatment Note Visit Start Time 13:55 Visit Stop Time 14:38 Visit Number 4 Number of MARKETING ANALYTICS ANALYST Visits 3 PT-OP-B Current Condition Start: 05/06/24 08:14 Freq: Status: Active Protocol: Document 05/06/24 10:42 [facility] (Rec: 05/06/24 12:32 [facility] [id number]) Current Condition History of Current Condition Onset Date >10 years ago chronic. Current Complaints back pain History of Current Condition Pt had a fusion of L4-5 10 years ago. Saw an othopedic and he suggested PT first. Pt reports L leg is weak and it affects his gait. he can't walk very far d/t weakness and pain. L leg was weak since prior to fusion. The surgery didn't improve much but it didn't get any worse. Last injection was over a year ago. THey help with pain but the pain comes back. He is very active. no hx of accidents. 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 Had a MRI. 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 Lays on a backboard with his own back support and has to do sit up and shoot. currently using the bowflex, wants to start walking more. He uses a cane if he is walking more than a parking lot. Pt has arthritis B knees and neck also and mult other jts. Hx of bunionectomy B, CTR B. Prior Treatments and Tests MRI in jan IMPRESSION: 1. Postsurgical sequelae. 2. Multilevel degenerative disc and facet disease, as well as ligamentum flavum hypertrophy and epidural lipomatosis. 3. Multilevel canal stenoses, worst at L2-L3 where there is increased, severe canal stenosis. 4. Multilevel mild and moderate foraminal stenoses. Treatment Goals Patient/Caregiver Goals Get stronger, improve flexibility, be able to do goose hunting season this fall , be able walk longer PT-OP-C Subjective Start: 05/06/24 08:14 Freq: Status: Active Protocol: Document 05/29/24 14:02 [facility] (Rec: 05/29/24 14:40 [facility] [id number]) OP-PT Subjective Patient Comments Patient Comments Sanford reports his low back pain is near 0/10 at the moment but when he's doing stuff his pain creeps up righ away. Pain is worst in the morning, and he takes about 30 minutes to do stretches before getting out of bed. 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 PT-OP-D Balance Start: 05/06/24 08:14 Freq: Status: Active Protocol: Document 05/06/24 10:42 [facility] (Rec: 05/06/24 12:32 [facility] [id number]) Balance Tests Single Limb Standing Single Limb- Right 1 sec Single Limb- Left 1 sec PT-OP-E Functional Tests Start: 05/06/24 08:14 Freq: Status: Active Protocol: Document 05/29/24 14:02 [facility] (Rec: 05/29/24 15:16 [facility] [id number]) Functional Tests 6 Minute Walk Test Distance 922ft Device Used none PT-OP-G Mobility & Gait Start: 05/06/24 08:14 Freq: Status: Active Protocol: Document 05/06/24 10:42 [facility] (Rec: 05/06/24 12:32 [facility] [id number]) OP Gait Assessment Comments Gait Comments dec foot clearance and dec stance time LLE, rigid trunk and dec arm swing, dec push off LEL PT-OP-J Posture/Palpation/Skin Start: 05/06/24 08:14 Freq: Status: Active Protocol: Document 05/06/24 10:42 [facility] (Rec: 05/06/24 12:32 [facility] [id number]) Posture Evaluation Avani Postural Classification System Avani Postural Classifications Posterior/Anterior Lumbar Protective Mechanism Left AP 0 Lumbar Protective Mechanism Right AP 0 Lumbar Protective Mechanism Left PA 0 Lumbar Protective Mechanism Right PA 0 Comments Posture Comments L pelvic shear, L iliac crest higher, R trunk rot, inc kyphosis & fwd head, flateening lumbar spine PT-OP-K Range of Motion Start: 05/06/24 08:14 Freq: Status: Active Protocol: Document 05/06/24 10:42 [facility] (Rec: 05/06/24 12:32 [facility] [id number]) Lumbar Spine Range of Motion Lumbar Spine Active Percentage Flexion 20 Extension 10 Rotation Left 15 Rotation Right 15 Lateral Flexion Left 30 Lateral Flexion Right 40 PT-OP-L Special Tests Start: 05/06/24 08:14 Freq: Status: Active Protocol: Document 05/06/24 10:42 [facility] (Rec: 05/06/24 12:32 [facility] [id number]) Special Tests Lumbar Spine Special Tests Slump Test Results LLE feels stiff Straight Leg Raise Test Results HS/calf pull B about 40 deg L and 50deg R PT-OP-M Strength Start: 05/06/24 08:14 Freq: Status: Active Protocol: Document 05/06/24 10:42 [facility] (Rec: 05/06/24 12:32 [facility] [id number]) Hip Strength Hip Manual Muscle Testing Right Flexion (L2) 4- Good- Abduction 3+ Fair+ External Rotation 3+ Fair+ Internal Rotation 4- Good- Left Flexion (L2) 4- Good- Abduction 3 Fair External Rotation 3+ Fair+ Internal Rotation 4+ Good+ Knee Strength Knee Manual Muscle Testing Right Flexion (S2) 4+ Good+ Extension (L3) 5 Normal Left Flexion (S2) 4 Good Extension (L3) 4+ Good+ Ankle/Foot Strength Ankle and Foot Manual Muscle Testing Right Dorsiflexion (L4) 5 Normal Plantarflexion (S1) 5 Normal Comments 20 heel raises Left Dorsiflexion (L4) 5 Normal Plantarflexion (S1) 2 Poor Comments unable to do heel raises PT-OP-Q Treatments Start: 05/06/24 08:14 Freq: Status: Active Protocol: Document 05/29/24 14:02 NBM (Rec: 05/29/24 14:40 [facility] [id number]) Therapeutic Exercises Supine Exercises Piriformis stretch Supine Exercise Name Figure 4 Side bilateral Sidelying Exercises Open book Sidelying Exercise Name cues scapular setting and form (HEP review) Side bilateral Reps/Minutes x10 ea Comments painfree, positive feedback response Therapeutic Activity Therapeutic Activity sleep positioning Comments Pt demos sidelying L sleeping. Added pillows between LEs for improved alignment and decreased stress in hip and low back. Sleeping Ergonomics handout given. Gait Training Gait Activity SPC Device Used SPC in RUE Level of Assistance SBA Surface carpet, tile Distance/Duration 40 ft Treatment Focus 2-pt sequencing Comments Walking out of clinic brief edu to pt end of session re: use of SPC in RUE. Assessed cane height which is appropriate. Pt requires cues for 2 pt sequencing instead of picking cane up at times and quickly demos safe 2-pt sequencing with appropriate cane placement. Manual Therapy Treatment Consent Patient gave verbal consent for manual Yes treatment Soft Tissue Mobilization lumbar Body Location B lumbar paraspinals Mobilization Type Rolling Intensity/Depth Moderate Body Position Sidelying Comments pillow supports between LEs. PT-OP-T Assessment and Plan Start: 05/06/24 08:14 Freq: Status: Active Protocol: Document 05/29/24 14:02 [facility] (Rec: 05/29/24 14:40 [facility] [id number]) Physical Therapy Assessment Goals activity Short Term Goal (STG) Pt iwll report ability to start small walks in community w/o pain greater than 3/10 05/21/24: Pt reports one small walk in the past week. He is encouraged to increase small walks and provided strategies to address LBP if it occurs during. 05/29/24: Pt reports walked 5 times on paved surface since last visit about one hour each and low back pain is less sore than when starting. STG Duration 06/06 (05/29/24: progressing) Circular Distributor Goal (LTG) Pt will be able to do at least 20 sit ups to allow pt to be able to duck west LTG Duration 07/15 strength Short Term Goal (STG) Pt will be indep w/strength HEP STG Duration 06/06 Circular Distributor Goal (LTG) pt will score at least 4/5 on all BLE MMT and at least 2/5 LPM to show improved core stability and strength to allow greater ease w/typical activities LTG Duration 07/13 6 min walk Impairment 980ft Short Term Goal (STG) Pt will improve 6 min walk to at least 1080ft 05/29/24: 922 ft. STG Duration 06/06 Senior Care Goal (LTG) Pt will be able to improve 1300ft for 6 min walk to be able to meet age norms to show activity tolerance improvement. LTG Duration 07/15 Assessment Summary Assessment Treatment focus on sleeping ergonomics, PPT activation for low back pain management, and goal assessment. Pt is edu to add pillows between LEs for improved alignment and decreased stress in hip and low back. Sleeping Ergonomics handout given. Emphasis on TrA activation w/ posterior pelvic tilt with positional changes in supine or when transitioning from supine to sitting EOB. He is progressing short term activity goal with more walks but walks slowly to manage low back pain, and today's 6MWT of 922 ft is less than baseline 980 ft. Brief instruction to pt for 2-pt sequencing w/ SPC in RUE which pt demos appropriately walking out of clinic. Physical Therapy Plan Frequency and Duration Frequency of Treatment 2x/Week Duration of treatment (weeks) 10 Plan of Care Start Date 05/06/24 Plan of Care End Date 07/15/24 Therapeutic Interventions Therapeutic Interventions Balance Training,Gait Training ,Home Exercise Program,Joint Mobilizations,Manual Therapy, Neuromuscular Re-education, Orthotic/Prosthetic Management ,Patient/Caregiver Education, Self-Care/Home Management,Soft Tissue Mobilization,Taping, Therapeutic Activities, Therapeutic Exercises Modalities Cold Pack/Ice Massage,Electric Stimulation,Hot Packs Next Visit Focus/Plan Next Note Type Treatment Note Next Visit Plan Assess 6MWT start of session, and activity goal (small walks <3/10 pain). Consider log roll edu. POC: review exercises, add stretches to hips and spine, advance core strength, balance , standing stability, DF and PF strength, manual to LB and innominate
--- NOTE | 2024-06-11 16:54 | PT.OPDS ---
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) Arthrodesis status (05/29/24) Visit Care Team Role Provider Type Boy Sosa MD Family Provider Physician Primary Care Provider Specialty: Internal Medicine Address: [address] [place] [address], [id number] Email: [email or web address] Jeferson Anderson DO Attending Provider Non-Staff Referring Provider Specialty: Orthopedic Surgery Address: [address] [place] [address] , [place], [address] Email: Visit Number Visit Number 4 Discharge Summary PT-OP-B Current Condition Start: 05/06/24 08:14 Freq: Status: Active Protocol: Document 05/06/24 10:42 [facility] (Rec: 05/06/24 12:32 [facility] [id number]) Current Condition History of Current Condition Onset Date >10 years ago chronic. Current Complaints back pain History of Current Condition Pt had a fusion of L4-5 10 years ago. Saw an othopedic and he suggested PT first. Pt reports L leg is weak and it affects his gait. he can't walk very far d/t weakness and pain. L leg was weak since prior to fusion. The surgery didn't improve much but it didn't get any worse. Last injection was over a year ago. THey help with pain but the pain comes back. He is very active. no hx of accidents. 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 Lays on a backboard with his own back support and has to do sit up and shoot. currently using the bowflex, wants to start walking more. He uses a cane if he is walking more than a parking lot. Pt has arthritis B knees and neck also and mult other jts. Hx of bunionectomy B, CTR B. Prior Treatments and Tests MRI in jan IMPRESSION: 1. Postsurgical sequelae. 2. Multilevel degenerative disc and facet disease, as well as ligamentum flavum hypertrophy and epidural lipomatosis. 3. Multilevel canal stenoses, worst at L2-L3 where there is increased, severe canal stenosis. 4. Multilevel mild and moderate foraminal stenoses. Treatment Goals Patient/Caregiver Goals Get stronger, improve flexibility, be able to do goose hunting season this fall , be able walk longer PT-OP-C Subjective Start: 05/06/24 08:14 Freq: Status: Active Protocol: Document 05/29/24 14:02 [facility] (Rec: 05/29/24 14:40 [facility] [id number]) OP-PT Subjective Patient Comments Patient Comments Sanford reports his low back pain is near 0/10 at the moment but when he's doing stuff his pain creeps up righ away. Pain is worst in the morning, and he takes about 30 minutes to do stretches before getting out of bed. His flexibility has improved and he's better able to pickling solution maker things from the floor. PT-OP-D Balance Start: 05/06/24 08:14 Freq: Status: Active Protocol: Document 05/06/24 10:42 [facility] (Rec: 05/06/24 12:32 [facility] [id number]) Balance Tests Single Limb Standing Single Limb- Right 1 sec Single Limb- Left 1 sec PT-OP-E Functional Tests Start: 05/06/24 08:14 Freq: Status: Active Protocol: Document 05/29/24 14:02 [facility] (Rec: 05/29/24 15:16 [facility] [id number]) Functional Tests 6 Minute Walk Test Distance 922ft Device Used none PT-OP-G Mobility & Gait Start: 05/06/24 08:14 Freq: Status: Active Protocol: Document 05/06/24 10:42 [facility] (Rec: 05/06/24 12:32 [facility] [id number]) OP Gait Assessment Comments Gait Comments dec foot clearance and dec stance time LLE, rigid trunk and dec arm swing, dec push off LEL PT-OP-J Posture/Palpation/Skin Start: 05/06/24 08:14 Freq: Status: Active Protocol: Document 05/06/24 10:42 [facility] (Rec: 05/06/24 12:32 [id number] Posture Evaluation Avani Postural Classification System Avani Postural Classifications Posterior/Anterior Lumbar Protective Mechanism Left AP 0 Lumbar Protective Mechanism Right AP 0 Lumbar Protective Mechanism Left PA 0 Lumbar Protective Mechanism Right PA 0 Comments Posture Comments L pelvic shear, L iliac crest higher, R trunk rot, inc kyphosis & fwd head, flateening lumbar spine PT-OP-K Range of Motion Start: 05/06/24 08:14 Freq: Status: Active Protocol: Document 05/06/24 10:42 [facility] (Rec: 05/06/24 12:32 [facility] [id number]) Lumbar Spine Range of Motion Lumbar Spine Active Percentage Flexion 20 Extension 10 Rotation Left 15 Rotation Right 15 Lateral Flexion Left 30 Lateral Flexion Right 40 PT-OP-L Special Tests Start: 05/06/24 08:14 Freq: Status: Active Protocol: Document 05/06/24 10:42 [facility] (Rec: 05/06/24 12:32 [facility] [id number]) Special Tests Lumbar Spine Special Tests Slump Test Results LLE feels stiff Straight Leg Raise Test Results HS/calf pull B about 40 deg L and 50deg R PT-OP-M Strength Start: 05/06/24 08:14 Freq: Status: Active Protocol: Document 05/06/24 10:42 [facility] (Rec: 05/06/24 12:32 [facility] [id number]) Hip Strength Hip Manual Muscle Testing Right Flexion (L2) 4- Good- Abduction 3+ Fair+ External Rotation 3+ Fair+ Internal Rotation 4- Good- Left Flexion (L2) 4- Good- Abduction 3 Fair External Rotation 3+ Fair+ Internal Rotation 4+ Good+ Knee Strength Knee Manual Muscle Testing Right Flexion (S2) 4+ Good+ Extension (L3) 5 Normal Left Flexion (S2) 4 Good Extension (L3) 4+ Good+ Ankle/Foot Strength Ankle and Foot Manual Muscle Testing Right Dorsiflexion (L4) 5 Normal Plantarflexion (S1) 5 Normal Comments 20 heel raises Left Dorsiflexion (L4) 5 Normal Plantarflexion (S1) 2 Poor Comments unable to do heel raises PT-OP-T Assessment and Plan Start: 05/06/24 08:14 Freq: Status: Active Protocol: Document 06/11/24 16:53 [facility] (Rec: 06/11/24 16:54 [facility] [id number]) Physical Therapy Assessment Goals activity Short Term Goal (STG) Pt iwll report ability to start small walks in community w/o pain greater than 3/10 05/21/24: Pt reports one small walk in the past week. He is encouraged to increase small walks and provided strategies to address LBP if it occurs during. 05/29/24: Pt reports walked 5 times on paved surface since last visit about one hour each and low back pain is less sore than when starting. STG Duration 06/06 (05/29/24: progressing) Sleeve Sewer Goal (LTG) Pt will be able to do at least 20 sit ups to allow pt to be able to duck west LTG Duration 07/15 strength Short Term Goal (STG) Pt will be indep w/strength HEP STG Duration 06/06 Sleeve Sewer Goal (LTG) pt will score at least 4/5 on all BLE MMT and at least 2/5 LPM to show improved core stability and strength to allow greater ease w/typical activities LTG Duration 07/13 6 min walk Impairment 980ft Short Term Goal (STG) Pt will improve 6 min walk to at least 1080ft 05/29/24: 922 ft. STG Duration 06/06 Sleeve Sewer Goal (LTG) Pt will be able to improve 1300ft for 6 min walk to be able to meet age norms to show activity tolerance improvement. LTG Duration 07/15 Assessment Summary Assessment Pt called to cancel last appt saying doctor says no longer needs PT and is sending to pain specialist. DC d/t pt request. min progress w/PT Physical Therapy Plan Discharge Physical Therapy Discharge Reasons Patient Request
== END 2024-06-18 10:46 | disposition home or self-care (01) ==
LOC: PHYS 13:45
PROVIDERS: Family Provider Internal Medicine; PCP Internal Medicine; Referring Provider Orthopaedic Surgery Orthopaedic Surgery of the Spine; Visit Provider Orthopaedic Surgery Orthopaedic Surgery of the Spine
DX: M47.816 Spondylosis without myelopathy or radiculopathy, lumbar region (principal); Z98.1 Arthrodesis status
CPT/HCPCS: 97110; 97162; 97530; 97535

== ENCOUNTER → 2024-11-06 12:20 | Outpatient (CLI) | payer MEDICARE, SELFPAY ==
--- NOTE | 2024-11-06 13:12 | EKG_ITS ---
[facility] [address] [address] Test Date: 2024-11-06 Pat Name: Sanford Mccollum Department: [facility] Room: Gender: Male Receiving Coordinator: MARIN : 1945 Requested By: Order Number: [id number] Reading MD: Elbert Ann MD Measurements Intervals [place] Rate: 63 P: 29 [place]: 196 QRS: 73 QRSD: 104 T: 60 QT: 380 QTc: 388 Interpretive Statements Sinus rhythm with marked sinus arrhythmia Electronically Signed On 11-11-2024 7:42:02 PDT by Elbert Ann MD
[2024-11-06 14:15] LABS: Add Manual Diff / Slide Review NO; Hematocrit 46.0 % (41-53); Hemoglobin 15.8 g/dL (13.5-17.5); Lymphocytes Absolute Auto 1300 /uL (1100-4500); Mean Corpuscular HGB Conc 34.4 % (30-36); Mean Corpuscular Hemoglobin 34.0 PG (26-34); Mean Corpuscular Volume 98.7 fL (80-100); Platelet Count 182 X10^3/uL (150-400)
[2024-11-06 14:56] LABS: Blood Urea Nitrogen 19 mg/dL (9-20); Calcium 9.4 mg/dL (8.4-10.2); Carbon Dioxide 25 mmol/L (22-32); Chloride 102 mmol/L (98-107); Estimated Glomerular Filt Rate > 60 mL/min (>60); Glucose 89 mg/dL (70-99); HEMOLYSIS < 15 (0-50); Potassium 4.2 mmol/L (3.4-5.1); Sodium 139 mmol/L (137-145)
== END ==
PROVIDERS: Family Provider Internal Medicine; PCP Internal Medicine; Referring Provider Urology; Visit Provider Urology
DX: I49.9 Cardiac arrhythmia, unspecified (principal); N18.31 Chronic kidney disease, stage 3a
CPT/HCPCS: 36415; 80048; 85025; 93005

== ENCOUNTER → 2024-12-02 12:03 | Outpatient (CLI) | payer MEDICARE, SELFPAY | PROVIDERS: Family Provider Internal Medicine; PCP Internal Medicine; Visit Provider Urology | DX: N40.1 Benign prostatic hyperplasia with lower urinary tract symptoms (principal); N13.8 Other obstructive and reflux uropathy | CPT/HCPCS: 87086 ==

== ENCOUNTER 2024-12-10 06:08 | Day surgery (SDC) | payer MEDICARE, SELFPAY ==
[2024-11-29 09:55] VITALS: BMI 26.4
[2024-11-29 10:08] VITALS: BMI 26.4
[2024-12-10] VITALS (18 sets, daily range): BP systolic 85–151; BP diastolic 48–76; PULSE 55–98; RESP 11–20; TEMP 35.9–36.6; O2SAT 92–98; BMI 25.9
--- NOTE | 2024-12-10 | PATH_ITS ---
[facility] Accession Number: [id number] No. of containers..01 Tissue . 01 Material submitted: . prostate - PROSTATE . 01 Diagnosis: PROSTATE (114 GRAMS), TRANSURETHRAL RESECTION: Benign prostatic hyperplasia. See comment. MRV 12/23/2024 1213 Local . 01 Comment: Granulomatous inflammation is identified. Special stains (AFB and GMS) are performed to evaluate for mycobacterial and fungal organisms, respectively, and are negative. Controls stain appropriately. . 01 Electronically signed: . Sera Moralez MD, Pathologist NPI- [id number] . 01 Gross description: . The specimen is received in formalin with two patient identifiers and prostate consists of a 9.8 x 6.0 x 4.1 cm, 114 gram, multinodular, shaggy and irregular prostatic tissue. The external surface is inked and the specimen is serially sectioned to show a white, multinodular, focally cystic cut surface with no distinct nodules or areas of discoloration appreciated. Core Winding Operator are submitted in cassettes A1-A8 (two sections in each cassette). ([id number]) /MRV 12/11/20242007 Local . 01 Microscopic: . A HMWCK and p63 cockatail immunostain supports the final diagnosis. Controls stain appropriately. . 01 Pathologist provided ICD-10: N40.1 . 01 CPT . 153150, [id number], 040252, 326892 Specimen Comment: A courtesy copy of this report has been sent to [facility] Pathology Performed at: [address] [address], [place], [place] [id number] MD Jonny Ennis MD Phone: [phone]
[2024-12-10] MEDS: LACTATED RINGERS 1,000 ML 42 ML IV ×2 (07:01→10:38)
[2024-12-10] MEDS: ACETAMINOPHEN 325 MG TABLET 975 MG PO (07:01)
[2024-12-10] MEDS: FAMOTIDINE 20 MG/2 ML VIAL IV (07:02)
--- NOTE | 2024-12-10 07:32 | PM.PREOP ---
Pre-operative Note COVID-19 COVID-19 status: Not tested Interval Note History & Physical reviewed/Exam performed by Physician: Yes Changes to H&P: No
--- NOTE | 2024-12-10 08:21 | SUR.OPER ---
Supine on padded OR bed, on pink pad, head on pillow, arms padded and tucked at sides, safety strap over chest, legs uncrossed, safety belt at thigh, tape over blanket over lower legs .
[2024-12-10] MEDS: LIDOCAINE 1% 20 ML INJ (08:31)
[2024-12-10] MEDS: LACTATED RINGERS 1,000 ML 21 ML IV (12:04)
--- NOTE | 2024-12-10 13:07 | P.OP_ITS ---
Operative Date/Time/Diagnoses Date of procedure: 12/10/24 Time of procedure: 08:00 Pre-op diagnosis: Benign prostatic hyperplasia with lower urinary tract symptoms Post-op diagnosis: same Procedure & Clinicians Procedure: Robotic simple prostatectomy Same procedure(s) as scheduled: Yes Indications: 79 y/o M noted to have symptoms consistent w/ BPH and LUTS that are poorly managed w/ Tamsulosin 0.4mg daily. Discussed treatment options to include observation vs increasing the dosage of his Tamsulosin to 0.8mg daily. Discussed mechanism of action and expected side effects to include orthostatic hypotension, nasal congestion and retrograde ejaculation. Also discussed the possible addition of Finasteride 5mg daily (discussed possible side effects to include decreased libido, worsening erectile dysfunction, loss of ejaculate volume as well as painful breast development or nipple tenderness), or proceeding with a bladder outlet procedure (already had his evaluation with Dr. Chaparro). Discussed at length that due to the large size of his prostate, I would recommend that we proceed with a robotic simple prostatectomy over an Aquablat ion. Discussed risks of the procedure to include but not limited to pain, bleeding, infection, poor cosmesis, fascial dehiscence, blood transfusion, persistent bladder or prostate urinary extravasation requiring prolonged catheter usage and/or placement of bilateral PCN's or an IR drain, injury to either ureteral orifice requiring a ureteral stent or ureteral reimplantation or bilateral PCN's, injury to bowel requiring resection and reanastomosis with the assistance of General Surgery or a colostomy or ileostomy creation with the hopes of being able to reverse this in the future, injury to blood vessels leading to life-threatening bleeding, inherent risks of anesthesia Surgeon: Mil Fernandez Assisted?: No Anesthesia Type: General Operative Notes Findings: Very large prostate with a very large intravesical median lobe, grade 3 trabeculations throughout bladder, watertight bladder closure Closure Type: primary Specimen(s): other (prostate adenoma) Applied: catheter Estimated Blood Loss (mL): 250 Blood products transfused: none Procedure in detail: After administration of general anesthetic, this patient was placed in an extended dorsal lithotomy position. The lower abdomen and genitalia were shaved, prepped, and draped in a sterile fashion. A 16 fr Coffey catheter was then passed per urethra in to the bladder and secured in the proper location by inflating the Coffey balloon. A small curvilinear incision was made immediately superior to the umbilicus, we then grasped the skin edges to elevate the abdominal wall and we established a pneumoperitoneum with a Veress needle. An 8 mm trocar was then placed. The abdomen was then inspected and free of injury from the trochar placement. Under direct vision, we placed 2 additional trocars on both sides; the far-left lateral port being a 12 mm port for the fws faculty assistant, and the remainder being 8 mm da Eloisa ports. The ports were then connected to the [employer] surgical system. A Edmar-Keegan device was utilized for fascial closure of the aforementioned 12 mm fws faculty assistant port. A total of 60 cc's of local anesthetic was utilized throughout the case. The bladder was then identified by distending the bladder via the coffey with 240 cc of sterile water. A vertical midline incision was made in the bladder. Stay sutures were then utilized to keep the bladder open via 0-Vicryl sutures and large weck clips. Bilateral ureteral orifices were easily identified and noted to be orthotopic in nature. The adenoma was easily visualized as a large intravesical median lobe. ?The bladder mucosa was then scored circumferentially around the adenoma and adenoma was excised intact. Hemostasis was obtained within the prostatic fossa via 4-0 Vicryl sutures in a figure of 8 fashion. Hemostasis was evaluated and noted to be excellent. A 24Fr Andria 3-way hematuria catheter was then placed into the bladder and the balloon was inflated under direct vision, a total of 45 cc of sterile water was utilized for balloon insufflation. The cystotomy was then closed in two layers using 3-0 V-lock in a running fashion and tied in the middle. A leak test was then performed with 240 cc of sterile water and noted to be negative. The prostatic adenoma was then placed into the lap sac. The robot was undocked and the midline incision was then extended to allow for extraction of the specimen. The midline fascial incision was then closed transversely using figure-of- eight sutures of 0 Vicryl. All skin incisions were then closed using running 4-0 Monocryl. All five incisions were then covered with Dermabond. The patient was then awakened and taken to the PACU in stable condition for recovery. Complications: none Post-operative Condition: stable Disposition: Acute Care Plan for aftercare: Transfer to Acute Care. Will continue to run CBI wide open and keep catheter on traction throughout the night. Will slowly begin to titrate CBI down over the next few days.
[2024-12-10] MEDS: ONDANSETRON 4 MG/2 ML INJ IV (13:56)
[2024-12-10] MEDS: LACTATED RINGERS 1,000 ML 125 ML IV (16:17)
[2024-12-10] MEDS: ATORVASTATIN 20 MG TABLET 80 MG PO (21:05)
[2024-12-11] MEDS: LACTATED RINGERS 1,000 ML 125 ML IV ×3 (00:21→16:59)
[2024-12-11 05:06] LABS: Add Manual Diff / Slide Review NO; Hematocrit 33.5 % (41-53); Hemoglobin 11.4 g/dL (13.5-17.5); Lymphocytes Absolute Auto 800 /uL (1100-4500); Mean Corpuscular HGB Conc 34.2 % (30-36); Mean Corpuscular Hemoglobin 33.2 PG (26-34); Mean Corpuscular Volume 97.3 fL (80-100); Platelet Count 140 X10^3/uL (150-400)
[2024-12-11 05:18] LABS: Blood Urea Nitrogen 22 mg/dL (9-20); Calcium 8.3 mg/dL (8.4-10.2); Carbon Dioxide 25 mmol/L (22-32); Chloride 102 mmol/L (98-107); Estimated Glomerular Filt Rate 51 mL/min (>60); Glucose 149 mg/dL (70-99); HEMOLYSIS < 15 (0-50); Potassium 4.8 mmol/L (3.4-5.1); Sodium 132 mmol/L (137-145)
--- NOTE | 2024-12-11 07:45 | PM.PNPO.1 ---
Subjective Subjective Date Patient Seen: 12/11/24 Time Patient Seen: 07:45 Interval history: 79 y/o M w/ BPH and bothersome LUTS who strongly desired surgical management via a robotic simple prostatectomy.? He is now POD 1 and tolerated the aforementioned procedure without any complications and had an uneventful night in the hospital.? He was tolerating a clear liquid diet without nausea or vomiting and his pain remained well controlled.?His catheter efflux is light pink while on a fast rate of CBI. Exam Vital Signs (past 8 hours): Fraction of Inspired Oxygen 36 SaO2/FiO2 Ratio 266 Oxygen Delivery Method Nasal Cannula Oxygen Flow Rate 4 Narrative Exam Narrative: GEN:? Alert and oriented X3.? No acute distress.? Well-nourished. EYES:? PERRLA, EOMI. HENT:? Moist mucus membranes, no scleral icterus, normal neck ROM. RESP:? Unlabored breathing, equal rise and fall of chest bilaterally, no cyanosis appreciated. CV:? No peripheral edema, unremarkable heart rate. ABD:? Soft, non-tender, non-distended, no palpable masses. :? Jiang catheter secured and draining light pink urine without clots with CBI on fast rate. EXT:? No edema, clubbing or cyanosis. SKIN:? No rashes or lesions. NEURO:? No focal neurologic deficits, CN II-XII grossly intact. PSYCH:? Cooperative, appropriate mood and affect. Objective Labs 12/11/24 04:38 12/11/24 04:38 Labs: Laboratory Results - last 24 hr 12/11/24 04:38 WBC 13.3 H RBC 3.44 L Hgb 11.4 L Hct 33.5 L MCV 97.3 MCH 33.2 MCHC 34.2 RDW 14.7 Plt Count 140 L Neut % (Auto) 88.6 H Lymph % (Auto) 6.0 L [place] % (Auto) 5.3 Eos % (Auto) 0.0 L Baso % (Auto) 0.1 Neut # (Auto) 56167 H Lymph # (Auto) 800 L [place] # (Auto) 700 Eos # (Auto) 0 Baso # (Auto) 0 Sodium 132 L Potassium 4.8 Chloride 102 Carbon Dioxide 25 BUN 22 H Creatinine 1.40 H Estimated GFR 51 L BUN/Creatinine Ratio 15.7 Glucose 149 H Calcium 8.3 L PFSH Medical History Asthma Chronic low back pain History of colonic polyps Prostatitis BPH with obstruction/lower urinary tract symptoms CKD stage 3a, GFR 45-59 ml/min Chronic prostatitis Osteoarthritis (~1999) Lumbar disc disease (~2015) Fractures (~1999) Foot pain (~2017) Chronic back pain (~2013) Carpal tunnel syndrome (~2017) Mumps (~1953) Measles (~1953) Chicken pox (~1948) Tinnitus Hearing loss (~1969) Cataracts, bilateral (~2017) Slow transit constipation Mixed hyperlipidemia Essential hypertension Feeling of incomplete bladder emptying History of kidney stones Elevated PSA (~2022) Male circumcision Gout (~2014) Surgical History History of bunionectomy Hx of rhinoplasty [place] teeth removed (02/17/72) Anesthesia History of cataract removal with insertion of prosthetic lens (~2019) History of carpal tunnel release (~2021) History of shoulder surgery (~2020) H/O vasectomy History of back surgery (~2015) Family History Mother COPD (chronic obstructive pulmonary disease) Brother Cancer Social History marital status: number of children: 2 household members: spouse Smoking Status: Former smoker alcohol intake: former Type(s) of exercise: walking and weight lifting frequency: 3-4 times per week Assessment & Plan Post-op Postoperative Procedures: Procedures Operation Date: 12/10/24 07:45 Actual Procedure Side Surgeon p Robotic Simple Prostatectomy Mil Fernandez DO Postoperative day: 1 Postoperative plan: routine post-op care Postoperative plan narrative: 79 y/o M w/ h/o BPH and bothersome LUTS who strongly desired surgical management via a robotic simple prostatectomy. He is POD 1 and is recovering as expected. His CBI rate was decreased to a slow continuous rate this AM and his traction was removed as well. - Will continue to hydrate well - Will switch to a regular diet - Will ambulate 3-4 times laps with the help of the nursing team - Will check on him around lunch and in the evening - Should his efflux become more dark, please contact Jim directly Time Spent With Patient Time with patient: less than 15 minutes
[2024-12-11 08:00] VITALS: BP 123/57; PULSE 84; RESP 16; TEMP 36.9; O2SAT 94
[2024-12-11 08:19] VITALS: BP 123/57; PULSE 84
[2024-12-11] MEDS: TAMSULOSIN 0.4 MG CAPSULE PO (08:20)
--- NOTE | 2024-12-11 14:52 | CM.DANOTE ---
DCP note brief pt is a 79yo M POD1 prostatectomy. getting bladder irrigation at this time. SALES REPRESENTATIVE SALES MANAGER reviewed EMR per chart, surgeon note states will advance diet, potential dc tomorrow vs later today pending if urine clear and can tolerate a diet. per chart review, pt lives in [place] with spouse indep at baseline. no identified safety barriers to safe dc home at this time. SALES REPRESENTATIVE SALES MANAGER unable to meet with pt today due to triaging needs P: dc home when medically stable with spouse support likely OP f/u. CM team will continue to follow closely in case any additional DCP needs should arise JAREK [place] Discharge Planning/Care Management CM Discharge Assessment Start: 12/10/24 06:33 Freq: Status: Active Protocol: Document 12/11/24 14:49 SL (Rec: 12/11/24 14:52 SL [id number]) Discharge Planning Assessment Assigned Discharge JAREK Peña Reservations Clerk Provider [place] [employer] [facility] [facility] DPOA/Assigned Michelle, spouse Designee Name Contact Information [phone] Advance Directives? Yes: Living Will. Advance Directives Yes on File History Provided By Patient Prior Living House Arrangements Household Members spouse Independent with ADL Yes 's Is patient alert and Yes oriented? DME Already Rented / FWW / Walker Owned Discharge Plan Home Referrals Initiated None needed Review Status In Process Please Provide Date 12/11/24 Initial DC Assessment Was Performed Next Review Type Continued Stay Review Pre-Anesthesia Assessment. Start: 11/29/24 09:55 Freq: Status: Active Protocol: Document 11/29/24 09:55 LB (Rec: 11/29/24 10:08 LB [id number]) Pre-Anesthesia Assessment PAC Comment 11/29/24 Chart review. Patient Information Chart Review Reviewed Via Diagnostic Results BMP/CMP,CBC,EKG Comment 11/06/24 at . Primary Care Boy Sosa Provider Seen Specialist in Yes Last 12 Months Specialist Seen Urologist Primary Language [place] Preferred Language [place] Operations Consultant Required No Height 177.8 cm Weight 83.461 kg Body Mass Index (BMI 26.4 ) Hearing Ability Use of Hearing Aid Visual Assist Contacts,Glasses Dentition Type Teeth, Missing Anesthesia Review No Requested Cad Administrator No alcohol intake former Smoking Status Former smoker Tobacco type pipe Substance Use Type [ does not use #R] Patient is No completely paralyzed or completely immobile Is patient on oxygen No ? Hx Sleep Apnea No Currently Taking a Yes: Carvedilol 3.125mg BID. Beta Jluis Hx Pacemaker/ICD No Pacemaker Rep No Required? Bladder Pattern Frequency,Urgency Diabetes No Hx Drug Resistant No Organism Presence of external No: right hip. lumbar fusion or internal medical devices? Received a COVID Yes vaccine? Lives With spouse Patient Discharge Return Home Plan Description Do You Have Any No Spiritual Beliefs That May Affect Your HC Choices? Emergency Contact Michelle Mccollum () Name Emergency Contact [phone] Phone Number Advance Directives? Yes: Living Will. Advance Directives Yes on File Power of Plate Embosser No Document 11/29/24 10:08 LB (Rec: 11/29/24 10:08 LB [id number]) Pre-Anesthesia Assessment PAC Comment 11/29/24 Chart review. Patient Information Chart Review Reviewed Via Diagnostic Results BMP/CMP,CBC,EKG Comment 11/06/24 at . Primary Care Boy Sosa Provider Seen Specialist in Yes Last 12 Months Specialist Seen Urologist Primary Language [place] Preferred Language [place] Operations Consultant Required No Height 177.8 cm Weight 83.461 kg Body Mass Index (BMI 26.4 ) Hearing Ability Use of Hearing Aid Visual Assist Contacts,Glasses Dentition Type Teeth, Missing Hx Anesthesia No Reactions Hx Family Anesthesia No Reaction Hx Malignant No Hyperthermia Hx Blood Transfusion No Reaction Anesthesia Review No Requested Cad Administrator No alcohol intake former Smoking Status Former smoker Tobacco type pipe Substance Use Type [ does not use #R] Patient is No completely paralyzed or completely immobile Is patient on oxygen No ? Hx Sleep Apnea No CPAP/BIPAP use not prescribed Currently Taking a Yes: Carvedilol 3.125mg BID. Beta Jluis Hx Pacemaker/ICD No Pacemaker Rep No Required? Gastrointestinal Constipation Symptoms Bladder Pattern Frequency,Urgency Diabetes No Hx Drug Resistant No Organism Presence of external No: right hip. lumbar fusion or internal medical devices? Received a COVID Yes vaccine? Lives With spouse Patient Discharge Return Home Plan Description Do You Have Any No Spiritual Beliefs That May Affect Your HC Choices? Do You Have Any No Cultural Practices That May Affect Your HC Choices? Emergency Contact Michelle Mccollum () Name Emergency Contact [phone] Phone Number Advance Directives? Yes: Living Will. Advance Directives Yes on File Power of Plate Embosser No Stop Bang Assessment Do you snore loudly No (louder than talking or loud enough to be heard through closed doors) Do you often feel Yes tired, fatigued or sleepy during the daytime Has anyone ever No observed you stop breathing while sleeping? Do you have, or are Yes you being treated for, high blood pressure Is your BMI more No than 35 kg/m2 Age over 50 Yes Estimated neck No circumference greater than 40cm or 16in Gender male Yes Result Negative
[2024-12-11 19:00] VITALS: BP 144/52; PULSE 85; RESP 16; TEMP 37.1; O2SAT 92
[2024-12-11 21:10] VITALS: BP 144/52; PULSE 72
[2024-12-11] MEDS: ATORVASTATIN 20 MG TABLET 80 MG PO (21:10)
[2024-12-12 04:42] LABS: Add Manual Diff / Slide Review NO; Hematocrit 27.6 % (41-53); Hemoglobin 9.5 g/dL (13.5-17.5); Lymphocytes Absolute Auto 1100 /uL (1100-4500); Mean Corpuscular HGB Conc 34.5 % (30-36); Mean Corpuscular Hemoglobin 33.5 PG (26-34); Mean Corpuscular Volume 97.1 fL (80-100); Platelet Count 123 X10^3/uL (150-400)
[2024-12-12 05:00] LABS: Blood Urea Nitrogen 26 mg/dL (9-20); Calcium 8.2 mg/dL (8.4-10.2); Carbon Dioxide 28 mmol/L (22-32); Chloride 102 mmol/L (98-107); Estimated Glomerular Filt Rate 57 mL/min (>60); Glucose 122 mg/dL (70-99); HEMOLYSIS < 15 (0-50); Potassium 4.3 mmol/L (3.4-5.1); Sodium 135 mmol/L (137-145)
--- NOTE | 2024-12-12 07:46 | P.PN_ITS ---
Subjective Subjective Date Patient Seen: 12/12/24 Time Patient Seen: 07:46 Interval history: 79 y/o M w/ BPH and bothersome LUTS who strongly desired surgical management via a robotic simple prostatectomy.? He is now POD 2 and tolerated the aforementioned procedure without any complications and had an uneventful night in the hospital.? He was tolerating a regular diet without nausea or vomiting and his pain remained well controlled.?His catheter efflux is light pink while on a slow drip of CBI. Exam Vital Signs (past 8 hours): Fraction of Inspired Oxygen 36 SaO2/FiO2 Ratio 266 Oxygen Delivery Method Nasal Cannula Oxygen Flow Rate 0 Narrative Exam Narrative: GEN:? Alert and oriented X3.? No acute distress.? Well-nourished. EYES:? PERRLA, EOMI. HENT:? Moist mucus membranes, no scleral icterus, normal neck ROM. RESP:? Unlabored breathing, equal rise and fall of chest bilaterally, no cyanosis appreciated. CV:? No peripheral edema, unremarkable heart rate. ABD:? Soft, non-tender, non-distended, no palpable masses. :? Jiang catheter secured and draining light pink urine without clots with CBI on slow drip. EXT:? No edema, clubbing or cyanosis. SKIN:? No rashes or lesions. NEURO:? No focal neurologic deficits, CN II-XII grossly intact. PSYCH:? Cooperative, appropriate mood and affect. Objective Labs 12/12/24 04:26 12/12/24 04:26 Labs: Laboratory Results - last 24 hr 12/12/24 04:26 WBC 11.9 H RBC 2.85 L Hgb 9.5 L Hct 27.6 L MCV 97.1 MCH 33.5 MCHC 34.5 RDW 14.7 Plt Count 123 L Neut % (Auto) 81.7 H Lymph % (Auto) 8.9 L [place] % (Auto) 8.9 Eos % (Auto) 0.0 L Baso % (Auto) 0.5 Neut # (Auto) 9800 H Lymph # (Auto) 1100 [place] # (Auto) 1100 H Eos # (Auto) 0 Baso # (Auto) 100 Sodium 135 L Potassium 4.3 Chloride 102 Carbon Dioxide 28 BUN 26 H Creatinine 1.28 H Estimated GFR 57 L BUN/Creatinine Ratio 20.3 Glucose 122 H Calcium 8.2 L PFSH Medical History Asthma Chronic low back pain History of colonic polyps Prostatitis BPH with obstruction/lower urinary tract symptoms CKD stage 3a, GFR 45-59 ml/min Chronic prostatitis Osteoarthritis (~1999) Lumbar disc disease (~2015) Fractures (~1999) Foot pain (~2017) Chronic back pain (~2013) Carpal tunnel syndrome (~2017) Mumps (~1953) Measles (~1953) Chicken pox (~1948) Tinnitus Hearing loss (~1969) Cataracts, bilateral (~2017) Slow transit constipation Mixed hyperlipidemia Essential hypertension Feeling of incomplete bladder emptying History of kidney stones Elevated PSA (~2022) Male circumcision Gout (~2014) Surgical History History of bunionectomy Hx of rhinoplasty [place] teeth removed (02/17/72) Anesthesia History of cataract removal with insertion of prosthetic lens (~2019) History of carpal tunnel release (~2021) History of shoulder surgery (~2020) H/O vasectomy History of back surgery (~2015) Family History Mother COPD (chronic obstructive pulmonary disease) Brother Cancer Social History marital status: number of children: 2 household members: spouse Smoking Status: Former smoker alcohol intake: former Type(s) of exercise: walking and weight lifting frequency: 3-4 times per week Assessment & Plan Post-op Postoperative Procedures: Procedures Operation Date: 12/10/24 07:45 Actual Procedure Side Surgeon p Robotic Simple Prostatectomy Mil Fernandez DO Postoperative day: 2 Postoperative status: doing well Postoperative plan: routine post-op care Postoperative plan narrative: 79 y/o M w/ h/o BPH and bothersome LUTS who strongly desired surgical management via a robotic simple prostatectomy. He is POD 2 and is recovering as expected. His CBI was discontinued this AM and his CBI port was capped with a catheter plug. - Will continue to hydrate well - Will continue regular diet - Will ambulate 3-4 times laps with the help of the nursing team - Will check on him around lunch - Should his efflux become more dark, please contact Jim directly - Will re-evaluate at lunch, may discharge home at that time Time Spent With Patient Time with patient: less than 15 minutes
[2024-12-12] MEDS: TAMSULOSIN 0.4 MG CAPSULE PO (08:16)
[2024-12-12 09:30] VITALS: BP 132/49; PULSE 70; RESP 17; TEMP 36.9; O2SAT 93
--- NOTE | 2024-12-12 12:13 | CM.DPC ---
DCP Cont: Per Surgeon, pt ambulating more today and plan of hydration and then likely discharge home this afternoon with outpt f/u and no identified barriers to discharge at this time. JAREK Taveras
--- NOTE | 2024-12-12 12:48 | PM.DS.IH.1 ---
History of Present Illness History of Present Illness Chief complaint: Lap Simple Prostatectomy Robot Assisted Narrative: 79 y/o M returns to Urology clinic to discuss his urinary habits and elevated PSA and complete his preop evaluation prior to a robotic simple prostatectomy. Briefly, he is currently treated with Tamsulosin 0.4mg daily. He admits to a strong strength urinary stream, urinary frequency and urinary urgency (will leak if not in the restroom w/in 60 seconds, typically more than just drops of urine). He otherwise denies the sensation of incomplete bladder emptying, urinary hesitancy/intermittency or nocturia. He was evaluated by Dr. Chaparro with a Uroflow/PVR and cystoscopy in the summer. These were notable for a VV of 256 cc, Qmax of 7.7 cc/s, Qavg of 4.7 cc/s and a PVR of 218 cc. His curve was otherwise flat and consistent w/ urinary obstruction. His cystoscopy was notable for coaptating lateral prostatic lobes w/ a large intravesical median lobe. His prostate MRI noted a 184g gland in August of 2023 and his prostate US in the summer demonstrated a 195 gland. Regarding his elevated PSA, he does not have a FH of prostate cancer and his last LENORA was 12 months ago and benign with Dr. Chaparro. He had a prostate MRI in August of 2023 that was notable for a 184g gland and no concerning PIRADS lesions. Review of his PSA's: 9.1 (05/21), 20.1 (11/20), 18 (10/20), 19.4 (09/19), 9.4 (06/20), 6.4 (02/18), 7.3 (10/19), 6 (07/19), 4.2 (10/15). His PSAD is currently 0.05. Of note, he does not have a Cardiac history and does not regular consume NSAID's or blood thinners on a regular basis. He also does not have any prior abdominal surgeries. Discharge Providers Provider Discharge Date: 12/12/24 Primary care physician: Boy Sosa MD Discharge provider: Mil Fernandez, Exam Vital Signs (past 8 hours): - 12/12/24 09:30 Temperature 98.4 F Pulse Rate 70 Respiratory Rate 17 Blood Pressure 132/49 L Pulse Oximetry 93 Oxygen Flow Rate 0 Fraction of Inspired Oxygen 36 SaO2/FiO2 Ratio 266 Oxygen Delivery Method Nasal Cannula Oxygen Flow Rate 0 Narrative Exam Narrative: GEN:? Alert and oriented X3.? No acute distress.? Well-nourished. EYES:? PERRLA, EOMI. HENT:? Moist mucus membranes, no scleral icterus, normal neck ROM. RESP:? Unlabored breathing, equal rise and fall of chest bilaterally, no cyanosis appreciated. CV:? No peripheral edema, unremarkable heart rate. ABD:? Soft, non-tender, non-distended, no palpable masses. :? Coffey catheter secured and draining light pink urine without clots with CBI on slow drip. EXT:? No edema, clubbing or cyanosis. SKIN:? No rashes or lesions. NEURO:? No focal neurologic deficits, CN II-XII grossly intact. PSYCH:? Cooperative, appropriate mood and affect. Objective Labs 12/12/24 04:26 12/12/24 04:26 Labs: Laboratory Results - last 24 hr 12/12/24 04:26 WBC 11.9 H RBC 2.85 L Hgb 9.5 L Hct 27.6 L MCV 97.1 MCH 33.5 MCHC 34.5 RDW 14.7 Plt Count 123 L Neut % (Auto) 81.7 H Lymph % (Auto) 8.9 L [place] % (Auto) 8.9 Eos % (Auto) 0.0 L Baso % (Auto) 0.5 Neut # (Auto) 9800 H Lymph # (Auto) 1100 [place] # (Auto) 1100 H Eos # (Auto) 0 Baso # (Auto) 100 Sodium 135 L Potassium 4.3 Chloride 102 Carbon Dioxide 28 BUN 26 H Creatinine 1.28 H Estimated GFR 57 L BUN/Creatinine Ratio 20.3 Glucose 122 H Calcium 8.2 L PFSH Medical History Asthma Chronic low back pain History of colonic polyps Prostatitis BPH with obstruction/lower urinary tract symptoms CKD stage 3a, GFR 45-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/min Chronic prostatitis Osteoarthritis (~1999) Lumbar disc disease (~2015) Fractures (~1999) Foot pain (~2017) Chronic back pain (~2013) Carpal tunnel syndrome (~2017) Mumps (~1953) Measles (~1953) Chicken pox (~1949) Tinnitus Hearing loss (~1969) Cataracts, bilateral (~2017) Slow transit constipation Mixed hyperlipidemia Essential hypertension Feeling of incomplete bladder emptying History of kidney stones Elevated PSA (~2022) Male circumcision Gout (~2014) Surgical History History of bunionectomy Hx of rhinoplasty [place] teeth removed (02/17/72) Anesthesia History of cataract removal with insertion of prosthetic lens (~2019) History of carpal tunnel release (~2021) History of shoulder surgery (~2020) H/O vasectomy History of back surgery (~2015) Family History Mother COPD (chronic obstructive pulmonary disease) Brother Cancer Social History marital status: number of children: 2 household members: spouse Smoking Status: Former smoker alcohol intake: former Type(s) of exercise: walking and weight lifting frequency: 3-4 times per week Discharge Assessment & Plan Assessment and Plan Plan of Treatment: 79 y/o M w/ h/o BPH and bothersome LUTS who strongly desired surgical management via a robotic simple prostatectomy. He is POD 2 and is recovering as expected. His CBI was discontinued this AM and his CBI port was capped with a catheter plug. - Will continue to hydrate well - Will continue regular diet - Will ambulate 3-4 times laps with the help of the nursing team - Will check on him around lunch - Should his efflux become more dark, please contact Jim directly - Will re-evaluate at lunch, may discharge home at that time Discharge Plan Discharge Plan Patient Disposition: Home Provider Discharge Comment: You may resume a regular diet upon returning home. You may begin taking showers as soon as you get home. Please allow the soapy water to run over your incisions. Then pat your incisions dry when you get out of the shower. Please refrain from submerging your incisions in standing water for the next 3 weeks (pools, hot tubs, baths, oceans, leaks, etc..). The surgical grade superglue over your incision should slowly flake off on its own over the next 2-3 weeks. Please do not peel it off early, it would be very similar to removing a scab prior to it being ready to come off. You can expect to have burning with urination for the next few days, this is normal and to be expected after your procedure. You may purchase an OTC medication (Phenazopyridine or Azo), a medication that can help with this burning and discomfort. This medication may change the color of your urine orange, however, this will resolve once you stop taking the medication. It is normal to have blood in your urine after the procedure. You may even pass large blood clots for the next several weeks. Expect to have periods of passage of blood clots and red urine which will then resolve after a few days and return to clear yellow urine. This is normal and part of the healing process of your bladder. As long as you are able to completely empty your bladder, it is okay. If you feel that you have to urinate and you are unable to empty your bladder, please go to the closest emergency room or contact our clinic for evaluation. It is important to refrain from heavy lifting (> 20 lbs) for the next six weeks. Please also avoid strenuous activities (running, elliptical machines, hiking, going to the gym). Please ensure that you have soft daily bowel movements for the next few weeks, you may purchase OTC Miralax and titrate the dosage as needed to achieve soft daily bowel movements. If you are discharged home with a coffey catheter, it is normal for the urine to switch between clear and red and even drain some blood clots. Some of the urine may also drain around the catheter, however, as long as the majority of the urine is draining through the catheter that is okay and to be expected. Should the catheter stop draining for an hour or more, please present to [facility] ER for evaluation after hours, or the Urology clinic during daylight hours. You have an appointment to return to the Urology clinic at 1620 on 25 Dec [address] results and hopefully have your catheter removed. You will be contacted by the Radiology department to coordinate the time for your CT to be performed earlier that morning. Should you have any questions or concerns after hours, please call the Transmission Line Engineer for [facility] at [phone]. They can relay any questions or concerns you have to the physician on-call. Discharge orders & Medications Discharge Orders: Discharge (Order); Ordered 12/12/24 Ordered By: Mil Fernandez Prescriptions: New tramadol 50 mg tablet 50 mg PO Q8H PRN (Reason: pain (scale score 7-10)) Qty: 7 0RF Continued duloxetine 40 mg capsule, delayed rel sprinkle 40 mg PO DAILY tamsulosin 0.4 mg capsule 0.4 mg PO BEDTIME Qty: 90 1RF omega 9-dfv-yqj-fish oil [Fish Oil] 1,000 mg (120 mg-180 mg) capsule 1 cap PO DAILY cholecalciferol (vitamin D3) 125 mcg (5,000 unit) capsule 125 mcg PO DAILY sea-iodine 1 cap PO DAILY allopurinol 100 mg tablet 200 mg PO DAILY Qty: 180 3RF amlodipine 5 mg tablet 5 mg PO DAILY Qty: 90 3RF carvedilol 3.125 mg tablet 3.125 mg PO BID Qty: 180 3RF Rx Instructions: must administer with a meal/food rosuvastatin 20 mg tablet 20 mg PO DAILY Qty: 90 3RF polyethylene glycol 3350 [Miralax] 17 gram Powder In Packet 8.5 g PO DAILY duloxetine 30 mg capsule,delayed release(DR/EC) 30 mg PO DAILY PreserVision AREDS 4,296 mcg-226 mg-90 mg capsule 1 cap PO BID duloxetine [Cymbalta] 20 mg capsule,delayed release(DR/EC) 40 mg PO DAILY Follow up/Referrals: Mil Fernandez DO [Physician, Urology] Boy Sosa MD [Primary Care Provider, Internal Medicine] Diet/Activity/Treatments Diet: Diet as Tolerated Catheter: 3-way Coffey Skin/Wound/Dressing Care Report to your healthcare provider any signs of infection, such as:: chills, fever, night sweats, increased pain and unusual drainage Visit Report/Discharge Packet Stand Alone Forms: Patient Portal/API Print Language: Greenlandic Discharge Data Primary Care Provider: Boy Sosa V Attending Provider: Mil Fernandez PROFEE Charge Codes Discharge inpatient/observation: [id number]
--- NOTE | 2024-12-12 14:38 | PC.NURSE ---
D/c instructions reviewed. Pt educated on coffey catheter care and how to switch coffey catheter bags. Reviewed Dr. Fernandez's d/c instructions. Discussed that if coffey stops draining or if pt feels like he's unable to empty bladder fully, to notify provider and go to emergency room. IVs removed. Pt exited via w/c with [employer] MAT[employer]S DISTRIBUTOR and spouse to private vehicle.
== END 2024-12-12 13:48 | disposition home or self-care (01) ==
LOC: OR 06:09 → AC 06:15
PROVIDERS: Family Provider Internal Medicine; PCP Internal Medicine; Referring Provider Urology; Visit Provider Urology
PROC: 0VT04ZZ Resection of Prostate, Percutaneous Endoscopic Approach (ICD-10-PCS; CPT 55867; principal; 2024-12-10 07:45)
DX: N40.1 Benign prostatic hyperplasia with lower urinary tract symptoms (principal); N13.9 Obstructive and reflux uropathy, unspecified; R35.0 Frequency of micturition; R39.15 Urgency of urination
CPT/HCPCS: 55867; 36415; 80048; 85025; 94762; J0689; J1100; J1171; J2405; J2704; J3010; J7120

== ENCOUNTER 2024-12-12 21:57 | Emergency (ER) | payer MEDICARE, SELFPAY ==
[2024-12-10 16:12] VITALS: BMI 25.9
[2024-12-12 22:26] VITALS: BP 139/63; PULSE 78; RESP 18; TEMP 37; O2SAT 93; BMI 25.9
--- NOTE | 2024-12-13 03:56 | ED.MALEGU ---
HPI - Male Genitourinary General Chief complaint: Urogenital-Male Stated complaint: post surg catheter complications Time Seen by Provider: 12/13/24 03:53 Source: patient, RN notes reviewed and old records reviewed Mode of arrival: Wheelchair Limitations: no limitations History of Present Illness HPI Narrative: 79-year-old male had catheter placed Monday for robotic simple prostate surgery with Dr. Fernandez discharged home on 12/12/24. Has been having leakage at the urethra around the catheter this afternoon. States a large amount that is progressed throughout the day. He has noted blood but states it has been draining. He states he did fall asleep woke up in the catheter bag was very full and under tension he did not release it. Patient states he is not having a lot of pain but we will feel like a pressure buildup and then when has leakage around the catheter that will improve. Denies fevers or chills. Denies any abdominal pain. Denies any nausea or vomiting. Denies any issues with bowel movements. States he was prescribed pain medication but has not needed it. He does not take any anticoagulants. Related Data Home Medications ?Medication ?Instructions ?Recorded ?Confirmed vitamins A,C,W-faxn-wlsbpb 4,296 1 cap PO BID 04/12/22 12/10/24 mcg-226 mg-90 mg capsule (PreserVision AREDS) cholecalciferol (vitamin D3) 125 125 mcg PO DAILY 07/25/23 12/10/24 mcg (5,000 unit) capsule omega 4-kjj-sjl-fish oil 1,000 mg 1 cap PO DAILY 07/25/23 12/10/24 (120 mg-180 mg) capsule (Fish Oil) sea-iodine 1 cap PO DAILY 07/25/23 12/10/24 polyethylene glycol 3350 17 gram 8.5 g PO DAILY 04/16/24 12/10/24 oral powder packet (Miralax) duloxetine 20 mg capsule,delayed 40 mg PO DAILY 09/12/24 12/10/24 release (Cymbalta) duloxetine 40 mg capsule,delayed 40 mg PO DAILY Spine Pain 11/26/24 12/10/24 release sprinkle duloxetine 30 mg capsule,delayed 30 mg PO DAILY 11/29/24 12/10/24 release Previous Rx's ?Medication ?Instructions ?Recorded allopurinol 100 mg tablet 200 mg (2 x 100 mg) PO DAILY #180 05/08/24 tabs amlodipine 5 mg tablet 5 mg PO DAILY #90 tabs 05/08/24 carvedilol 3.125 mg tablet 3.125 mg PO BID #180 tabs 05/08/24 rosuvastatin 20 mg tablet 20 mg PO DAILY #90 tabs 05/08/24 tamsulosin 0.4 mg capsule 0.4 mg PO BEDTIME #90 caps 10/14/24 tramadol 50 mg tablet 50 mg PO Q8H PRN pain (scale score 12/12/24 7-10) #7 tabs Allergies Allergy/AdvReac Type Severity Reaction Status Date / Time oxycodone (From PERCOCET) Allergy Severe ITCHING Verified 12/10/24 06:35 hydrochlorothiazide AdvReac Intermediate ACUTE Verified 12/10/24 06:35 KIDNEY INJURY lisinopril AdvReac Intermediate ACUTE Verified 12/10/24 06:35 KIDNEY INJURY sulfamethoxazole (From AdvReac Intermediate Verified 12/10/24 06:35 Bactrim) trimethoprim (From Bactrim) AdvReac Intermediate Verified 12/10/24 06:35 Review of Systems Review of Systems ROS Unobtainable: All systems reviewed & are unremarkable except as noted in HPI and below Patient History Medical History Asthma Chronic low back pain History of colonic polyps Prostatitis BPH with obstruction/lower urinary tract symptoms CKD stage 3a, GFR 45-59 ml/min Chronic prostatitis Osteoarthritis (~1999) Lumbar disc disease (~2015) Fractures (~2000) Foot pain (~2017) Chronic back pain (~2013) Carpal tunnel syndrome (~2017) Mumps (~1953) Measles (~1953) Chicken pox (~1948) Tinnitus Hearing loss (~1969) Cataracts, bilateral (~2017) Slow transit constipation Mixed hyperlipidemia Essential hypertension Feeling of incomplete bladder emptying History of kidney stones Elevated PSA (~2022) Male circumcision Gout (~2014) Surgical History History of bunionectomy Hx of rhinoplasty [place] teeth removed (02/17/72) Anesthesia History of cataract removal with insertion of prosthetic lens (~2019) History of carpal tunnel release (~2021) History of shoulder surgery (~2020) H/O vasectomy History of back surgery (~2015) Family History Mother COPD (chronic obstructive pulmonary disease) Brother Cancer Social History marital status: number of children: 2 household members: spouse Smoking Status: Former smoker alcohol intake: former Type(s) of exercise: walking and weight lifting frequency: 3-4 times per week Smoking Status: Former smoker alcohol intake frequency: holidays/special occasions only Exam Narrative Exam Narrative: GENERAL: Alert and oriented x three, male in mild distress HEENT: Head normocephalic, atraumatic, EOMI, pupils reactive, face symmetric, moist mucous membranes NECK: Supple, full range of motion CARDIOVASCULAR: Regular rate and rhythm without murmurs, rubs or gallops. RESPIRATORY: Breath sounds equal bilaterally, no wheezes rales or rhonchi. ABDOMEN: Soft, nontender. Normoactive bowel sounds all 4 quadrants. No guarding or rebound, rigidity, no mass, incisions are intact with no warmth erythema or other skin changes. : No CVA tenderness. Male: normal external examination, no penile discharge or lesions, testicles non-tender, cremasteric reflex intact, no inguinal hernias noted. Patient does have Jiang catheter in place there is a small amount of fluid blood at the urethral meatus but no active leakage. Catheter itself is clearly draining urine there some small clots but bag is full urine is bloody but translucent. Patient does not have any tenderness on exam. EXTREMITIES: Normal range of motion, no clubbing or edema. Neurovascularly intact NEUROLOGICAL: Cranial nerves II through XII grossly intact. Moving all extremities SKIN: Warm, dry, no petechiae, no rashes or lesions. Initial Vital Signs Initial Vital Signs: Vital Signs Temperature 98.6 F 12/12/24 22:26 Pulse Rate 78 12/12/24 22:26 Respiratory Rate 18 12/12/24 22:26 Blood Pressure 139/63 12/12/24 22:26 Pulse Oximetry 93 12/12/24 22:26 Oxygen Delivery Method Room Air 12/12/24 22:26 Course Orders Ordered: Discontinued Medications Oxybutynin (Oxybutynin 5 Mg Tablet) 5 mg PO DAILY ONE Stop: 12/13/24 04:12 Last Admin: 12/13/24 04:20 Dose: 5 mg Documented By: DELIA Vital Signs Vital signs: Vital Signs - 8 hr 12/12/24 22:26 12/13/24 04:41 Temperature 98.6 F Pulse Rate 78 63 Respiratory Rate 18 16 Blood Pressure 139/63 129/70 Pulse Oximetry 93 97 Oxygen Delivery Method Room Air Room Air MDM - Male Genitourinary MDM Narrative Medical decision making narrative: Spoke with Dr. Fernandez, he asked that we do not make any adjustments to the catheter to leave it in place he asked to give oxybutynin 5 mg here in the department and he will send a prescription. Patient is to touch base with the office this morning. Can wear a brief. Discussed with the patient and family they feel comfortable with this plan. Discharge Plan Departure Patient Disposition: Home Clinical Impression: Jiang catheter problem, History of robot-assisted laparoscopic radical prostatectomy Instructions: How to Care for Your Jiang Catheter -- Male, Oxybutynin Activity Restrictions/Additional Instructions: Please follow up with Dr. Fernandez. He is going to call it a prescription for oxybutynin for the leakage around your catheter for you to strip picker later today. It can sometimes cause side effects such as dry mouth, dry eyes, low blood pressure, confusion, hallucinations. If you noticed significant changes. Medication and contact Dr. Fernandez. Please return for fevers, new abdominal back or flank pain, persistent vomiting, lightheadedness or passing out or other new or concerning changes. Prescriptions: No Action duloxetine 40 mg capsule, delayed rel sprinkle 40 mg PO DAILY tamsulosin 0.4 mg capsule 0.4 mg PO BEDTIME Qty: 90 1RF omega 3-gqu-cip-fish oil [Fish Oil] 1,000 mg (120 mg-180 mg) capsule 1 cap PO DAILY cholecalciferol (vitamin D3) 125 mcg (5,000 unit) capsule 125 mcg PO DAILY sea-iodine 1 cap PO DAILY allopurinol 100 mg tablet 200 mg PO DAILY Qty: 180 3RF amlodipine 5 mg tablet 5 mg PO DAILY Qty: 90 3RF carvedilol 3.125 mg tablet 3.125 mg PO BID Qty: 180 3RF Rx Instructions: must administer with a meal/food rosuvastatin 20 mg tablet 20 mg PO DAILY Qty: 90 3RF polyethylene glycol 3350 [Miralax] 17 gram Powder In Packet 8.5 g PO DAILY duloxetine 30 mg capsule,delayed release(DR/EC) 30 mg PO DAILY tramadol 50 mg tablet 50 mg PO Q8H PRN (Reason: pain (scale score 7-10)) Qty: 7 0RF PreserVision AREDS 4,296 mcg-226 mg-90 mg capsule 1 cap PO BID duloxetine [Cymbalta] 20 mg capsule,delayed release(DR/EC) 40 mg PO DAILY Referrals: Mil Fernandez DO [Physician, Urology] Boy Sosa MD [Primary Care Provider, Internal Medicine] Stand Alone Forms: Patient Portal/API
[2024-12-13 04:41] VITALS: BP 129/70; PULSE 63; RESP 16; O2SAT 97
== END 2024-12-13 04:43 | disposition home or self-care (01) ==
PROVIDERS: Emergency Provider Emergency Medicine; Family Provider Internal Medicine; PCP Internal Medicine
DX: T83.9XXA Unspecified complication of genitourinary prosthetic device, implant and graft, initial encounter (principal)
CPT/HCPCS: 99283

== ENCOUNTER → 2024-12-24 14:05 | Outpatient (CLI) | payer MEDICARE, SELFPAY ==
[2024-12-10 16:12] VITALS: BMI 25.9
--- NOTE | 2024-12-24 14:26 | DI.CT.S_ITS ---
PROCEDURE: CT CYSTOGRAM INDICATIONS: 79 y/o M s/p simple prostatectomy, eval for bladder leak TECHNIQUE: Both before and after gravity instillation of 10% Isovue contrast solution into the bladder through a Jiang catheter, 5 mm axial images acquired from the bladder dome to the symphysis. 5 mm thick coronal and sagittal reformats were acquired. For radiation dose reduction, the following was used: automated exposure control, adjustment of mA and/or kV according to patient size. COMPARISON: None. FINDINGS: Image quality: Diagnostic Lower abdomen: Partially seen renal cysts. No small bowel obstruction. No drainable abscess or ascites Bladder: A Jiang catheter is in place. Diffuse bladder wall thickening. No intraperitoneal contrast extravasation is seen with bladder filling, with moderate distension. Numerous diverticula and trabeculations are seen. Along the left sub peritoneal area, just above the prostate bed, an area of possible contrast extravasation is seen Persistent appearance postvoid. Edematous fat stranding is seen around the bladder Reproductive organs: Prostate bed postsurgical changes Rectum: Moderate rectal stool ball Vessels and lymph nodes: No enlarged lymph nodes by size criteria on this nondedicated study. No aneurysmal artery identified Pelvic wall: Moderate left and small right inguinal hernias containing fat Bones: Right femoral fixation hardware. Lumbosacral degenerative changes. Lower lumbar postsurgical changes also seen. IMPRESSION: Suspect contrast extravasation is seen following bladder filling just to the left and superior to the prostatectomy bed. This is unchanged post bladder drainage. Dictated by: Virgilio Wright M.D. on 12/24/2024 at 15:08 Approved by: Virgilio Wright M.D. on 12/24/2024 at 15:13
== END ==
LOC: CT 14:05
PROVIDERS: Family Provider Internal Medicine; PCP Internal Medicine; Referring Provider Urology; Visit Provider Urology
DX: N40.1 Benign prostatic hyperplasia with lower urinary tract symptoms (principal); N13.8 Other obstructive and reflux uropathy; N28.1 Cyst of kidney, acquired; N32.3 Diverticulum of bladder; N32.89 Other specified disorders of bladder; K40.20 Bilateral inguinal hernia, without obstruction or gangrene, not specified as recurrent
CPT/HCPCS: 72194; Q9967

== ENCOUNTER → 2025-01-08 09:04 | Outpatient (CLI) | payer MEDICARE, SELFPAY ==
[2024-12-10 16:12] VITALS: BMI 25.9
[2025-01-08 10:14] LABS: Appearance Urine UA CLOUDY; Bilirubin Urine UA NEGATIVE (NEGATIVE); Color Urine UA YELLOW; Glucose Urine UA NEGATIVE (Negative); Ketones Urine UA NEGATIVE (NEGATIVE); Leukocyte Esterase Urine UA 3+ (NEGATIVE); Nitrite Urine UA POSITIVE (Negative); Occult Blood Urine UA 3+ (Negative); Protein Urine UA 2+ (Negative); Specific Gravity Urine UA 1.020 (1.000-1.035); Urobilinogen Urine UA 0.2 E.U./dL (0.2); pH Urine UA 6.0 (4.5-8.0)
[2025-01-08 10:27] LABS: Culture Indicated Urine Specimen Cultured
== END ==
PROVIDERS: Family Provider Internal Medicine; PCP Internal Medicine; Referring Provider Urology; Visit Provider Urology
DX: R39.9 Unspecified symptoms and signs involving the genitourinary system (principal)
CPT/HCPCS: 81001; 87077; 87086

== ENCOUNTER → 2025-01-22 15:45 | Outpatient (CLI) | payer MEDICARE, SELFPAY ==
[2024-12-10 16:12] VITALS: BMI 25.9
[2025-01-22 18:16] LABS: Bilirubin Urine UA NEGATIVE (NEGATIVE); Color Urine UA YELLOW; Glucose Urine UA NEGATIVE (Negative); Ketones Urine UA NEGATIVE (NEGATIVE); Leukocyte Esterase Urine UA 3+ (NEGATIVE); Nitrite Urine UA POSITIVE (Negative); Occult Blood Urine UA 3+ (Negative); Protein Urine UA 3+ (Negative); Specific Gravity Urine UA 1.015 (1.000-1.035); Urobilinogen Urine UA 0.2 E.U./dL (0.2); pH Urine UA 6.0 (4.5-8.0)
[2025-01-22 18:17] LABS: Appearance Urine UA TURBID
[2025-01-22 18:21] LABS: Culture Indicated Urine Specimen Cultured
== END ==
PROVIDERS: Family Provider Internal Medicine; PCP Internal Medicine; Referring Provider Urology; Visit Provider Urology
DX: N40.1 Benign prostatic hyperplasia with lower urinary tract symptoms (principal); N13.8 Other obstructive and reflux uropathy
CPT/HCPCS: 81001; 87077; 87086; 87186

== ENCOUNTER → 2025-02-25 13:56 | Outpatient (CLI) | payer MEDICARE, SELFPAY ==
[2024-12-10 16:12] VITALS: BMI 25.9
[2025-02-25 14:20] LABS: Hematocrit 39.4 % (41-53); Hemoglobin 13.0 g/dL (13.5-17.5); Mean Corpuscular HGB Conc 32.8 % (30-36); Mean Corpuscular Hemoglobin 29.1 PG (26-34); Mean Corpuscular Volume 88.5 fL (80-100); Platelet Count 215 X10^3/uL (150-400)
[2025-02-25 14:45] LABS: Blood Urea Nitrogen 20 mg/dL (9-20); Calcium 9.5 mg/dL (8.4-10.2); Carbon Dioxide 25 mmol/L (22-32); Chloride 105 mmol/L (98-107); Estimated Glomerular Filt Rate > 60 mL/min (>60); Glucose 120 mg/dL (70-99); HEMOLYSIS 22 (0-50); Potassium 4.1 mmol/L (3.4-5.1); Sodium 140 mmol/L (137-145)
[2025-02-25 15:13] LABS: Prostate Specific Antigen 0.759 ng/mL (0.10-4.00)
== END ==
PROVIDERS: Family Provider Internal Medicine; PCP Internal Medicine; Referring Provider Internal Medicine; Visit Provider Internal Medicine
DX: E13.8 Other specified diabetes mellitus with unspecified complications (principal); N40.1 Benign prostatic hyperplasia with lower urinary tract symptoms; N13.8 Other obstructive and reflux uropathy; I10 Essential (primary) hypertension; D64.9 Anemia, unspecified
CPT/HCPCS: 36415; 80048; 84153; 85027